=== PATIENT | female | born 1955 | race African-American/Black ===

== ENCOUNTER → 2016-08-31 | Outpatient (CLI) | payer MEDICARE, BC ==
--- NOTE | 2016-08-31 08:40 | XR ---
Left foot HISTORY: Pain, remote trauma 3 views of the left foot No comparisons There is degenerative change at the metatarsophalangeal joint of the first digit. Mild hallux valgus deformity. Bone mineralization is mildly reduced. Spurring also noted at the intertarsal joints. IMPRESSION: No fracture or dislocation. Degenerative changes.
== END | disposition home or self-care (01) ==
LOC: RADXRMAIN 08:08
PROVIDERS: ATTEND Family Medicine
DX: S99.922A Unspecified injury of left foot, initial encounter (principal); M25.872 Other specified joint disorders, left ankle and foot

== ENCOUNTER → 2017-08-07 | Outpatient (CLI) | payer MEDICARE, BC ==
--- NOTE | 2017-08-07 19:55 | CT ---
EXAMINATION TYPE: CT cervical spine wo con DATE OF EXAM: 08/07/2017 COMPARISON: NONE HISTORY: Neck, shoulder and bilateral arm pain for [address] DLP: 312.2 mGycm Automated exposure control for dose reduction was used. TECHNIQUE: CT scan of the cervical spine is obtained without contrast, axial images are obtained, sa gittal and coronal reformatted images are also reviewed. FINDINGS: There is plate with screws fusing anteriorly the cervical spine from C3 to C7. Vertebra hav e normal alignment. The facet joints appear intact. There is no evidence for fracture. There is some degree of metal artifact from the fusion surgery. I see no evidence of any significant spinal stenosi s. There is a mild relative spinal stenosis at C3-4 of 7 mm. I see no bony destructive process. The s kull base is intact. IMPRESSION: Multilevel fusion surgery. No sign of instability. No fracture. Mild relative spinal sten osis at C3-4.
== END | disposition home or self-care (01) ==
LOC: RADCTMAIN 18:59
PROVIDERS: ATTEND Family Medicine
DX: M48.02 Spinal stenosis, cervical region (principal); G89.29 Other chronic pain; Z98.1 Arthrodesis status
CPT/HCPCS: 72125

== ENCOUNTER → 2019-02-04 | Outpatient (CLI) | payer MEDICARE, BC ==
--- NOTE | 2019-02-04 14:44 | CT ---
EXAMINATION TYPE: CT chest wo con DATE OF EXAM: 02/04/2019 COMPARISON: 09/03/2014 HISTORY: 63-year-old female Chest pain x couple weeks. TECHNIQUE: Contiguous axial scanning of the chest without IV contrast. Coronal and sagittal reconstru ctions performed. CT DLP: 132 mGycm Automated exposure control for dose reduction was used. FINDINGS: Heart is normal size without pericardial effusion. Aorta normal caliber with bovine configuration. No thoracic lymphadenopathy by CT size criteria. There is moderate centrilobular emphysema with strandy atelectasis or scarring at the left base and m ild bilateral lower lobe bronchiectasis. No consolidation or pleural effusion. Irregular medial left basilar density measures 1.1 cm. On coronal series, this has a more bandlike ap pearance suggesting atelectasis rather than a suspicious nodule. Follow-up is recommended as this is new. Visualized upper abdomen shows post surgical change at the GE junction with small to moderate size hi atal hernia. Bones: No osseous destructive process. Partially visualized ACDF hardware. IMPRESSION: 1. COPD WITH MODERATE EMPHYSEMA. 2. MILD BIBASILAR BRONCHIECTASIS. 3. THIS NEW STRANDY LEFT BASILAR ATELECTASIS OR SCARRING COMPARED TO 2014. THERE IS A 1.1 CM FOCAL IRREGULAR DENSITY AT THE MEDIAL LEFT BASE. EQUIVOCAL BETWEEN ADDITIONAL AREA OF ATELECTASIS OR SUSPI CIOUS PULMONARY NODULE. THREE-MONTH FOLLOW-UP CT RECOMMENDED TO REASSESS. 4. SMALL TO MODERATE SIZED HIATAL HERNIA WITH SOME POST SURGICAL CHANGE AT THE GE JUNCTION. CORRELATE TO THE SURGERY THAT WAS PERFORMED.
== END | disposition home or self-care (01) ==
LOC: RADCTMAIN 13:13
PROVIDERS: ATTEND Internal Medicine Pulmonary Disease
DX: J47.9 Bronchiectasis, uncomplicated (principal); J43.9 Emphysema, unspecified; K44.9 Diaphragmatic hernia without obstruction or gangrene; K21.9 Gastro-esophageal reflux disease without esophagitis; J45.40 Moderate persistent asthma, uncomplicated; G89.4 Chronic pain syndrome; Z98.890 Other specified postprocedural states
CPT/HCPCS: 71250

== ENCOUNTER → 2019-07-31 | Outpatient (CLI) | payer MEDICARE, BC ==
--- NOTE | 2019-08-03 11:14 | MM ---
Reason for exam: screening (asymptomatic). Last mammogram was performed 2 years and 2 months ago. History: Patient is postmenopausal and is nulliparous. Benign excisional biopsy of the left breast, 2002. Physical Findings: A clinical breast exam by your physician is recommended on an annual basis and results should be correlated with mammographic findings. MG 3D Screening Mammo W/Cad Bilateral CC and MLO view(s) were taken. Prior study comparison: June 06, 2017, mammogram. April 16, 2016, mammogram. The breast tissue is heterogeneously dense. This may lower the sensitivity of mammography. Finding: There are typically benign round, regional calcifications in the posterior position of both breasts. Asymmetric breast tissue left central position, stable. There is no discrete abnormality. ASSESSMENT: Benign, BI-RAD 2 RECOMMENDATION: Routine screening mammogram of both breasts in 1 year.
== END | disposition home or self-care (01) ==
LOC: RADMAMWWP 13:16
PROVIDERS: ATTEND Obstetrics & Gynecology
DX: Z12.31 Encounter for screening mammogram for malignant neoplasm of breast (principal)
CPT/HCPCS: 77063; 77067

== ENCOUNTER → 2020-05-16 | Outpatient (CLI) | payer BC, MEDICARE ==
[2020-05-16 13:27] VITALS: BP 122/85; PULSE 87; RESP 16; TEMP 98.1
--- NOTE | 2020-05-20 11:01 | P.PAINCN ---
History of Present Illness - Reason for Consult Consult date: 05/16/20 - History of Present Illness This is an initial consultation visit for this 64 years old female with a chronic history of severe neck pain, started more than 15 years ago, she had cervical fusion surgery, she continued to have severe neck pain with radiation to the upper extremity associated with numbness and tingling sensation, the pain intensity interfere with the quality of life and prevented her from doing activities of daily livings, she denies any motor or sensory deficit she denies any fever or night sweats, she had no change in the bowel movements or urination Past Medical History Past Medical History: Asthma, COPD, Fibromyalgia, GERD/Reflux, Osteoarthritis (OA) History of Any Multi-Drug Resistant Organisms: None Reported Past Surgical History: Hysterectomy Additional Past Surgical History / Comment(s): fusion -neck 2006,EGD,bunnionectomy Past Anesthesia/Blood Transfusion Reactions: No Reported Reaction Past Psychological History: Depression Smoking Status: Former smoker Past Alcohol Use History: Rare Additional Past Alcohol Use History / Comment(s): quit smoking Jul 2019 Past Drug Use History: Marijuana Additional Drug Use History / Comment(s): MEDICAL USE-uses daily - Past Family History Mother Family Medical History: Cancer Medications and Allergies Home Medications Medication Instructions Recorded Confirmed Type FLUoxetine HCL [PROzac] 40 mg PO DAILY 09/09/14 05/13/20 History Lansoprazole 30 mg PO BID 09/09/14 05/13/20 History Albuterol Sulfate [Proair Hfa] 1 - 2 puff INHALATION Q6HR PRN 09/25/14 05/13/20 History Beclomethasone Dipropionate [Qvar 2 puff INHALATION BID PRN 09/25/14 05/13/20 History 80 mcg/puff] Hydrocodone/Acetaminophen [Badin 1 each PO Q6HR PRN 10/26/14 05/13/20 History 7.5-325] tiZANidine HCL [Zanaflex] 4 mg PO Q8HR 05/16/20 05/16/20 History Allergies Allergy/AdvReac Type Severity Reaction Status Date / Time meperidine HCl [From Demerol] AdvReac Vomiting Verified 05/16/20 13:15 Physical Exam Physical Examinations : -Constitutiona : Cooperative , not in acute distress . -HEENT : nech : supple , no Lymphadenopathy , normal thyroid size . : eyes : no ptosis , no icterus, no photophobia . : ENT : normal of hearing , normal oropharynx , no Thrush . - Respiratory : Chest clear to auscultations Bilaterally , no wheezing , no Rhonchi . - Cardiovascula : regular rate and rhythem , S1 , S2 , no S3 , no S4. - Gastrointestina : abdomen soft no tenderness , bowel sounds , no organomegally . - Genitourinary : Defferred . - neurologic : Cranial nerve II to XII intact , no focal neurological deffecit . -psychatric : alert , oriented X 3 , appropriate affect , intact judgment and insight . -Lymphatic : no Lymphadenopathy . - musculoskeltal : Cervical Spine motor stregnth in the deltoid and biceps, normal right side , normal Left side motor stregnth biceps and the wrist extensors normal right side ,normal left side . motor stregnth in the triceps muscle . normal Right side , normal Left side deep tendon reflexes normal at the biceps , normal at Brachioradialis , normal at triceps. cervical facet loading test= Positive Bilaterally Spurling test= positive bilaterally. Neck distraction test= positive bilaterally. Marquis sign= positive bilaterally. Multiple trigger point identified in the cervical paraspinal muscles on the shoulder blade area Lumber spine moter stegnth lower extremities ,thigh and legs 5/5 Right side , 5/5 Left side Results Comments: Computed tomography scan of the cervical spine multilevel cervical fusion surgery and cervical canal stenosis at C3 4 levels Assessment and Plan Plan: Assessment and plan=1-cervical radiculopathy. 2-myofascial pain syndrome and cervical paraspinal muscles and shoulder blade area bilaterally 3-failed back surgery syndrome cervical area. Patient could benefit from cervical epidural steroid injection at C7-T1, and she could benefit from trigger point injection in the cervical paraspinal muscles and shoulder blade area, also patient could benefit from physical therapy prescription for that given and also she could benefit from a muscle relaxant Zanaflex 4 mg every 8 hours when necessary Time with Patient: Greater than 30 PQRS Measure Charge Sheet PQRS Narrative: Smoking Status Former smoker Blood Pressure 122/85 Pain Intensity [Bilateral 7 Posterior Neck] Pain Intensity [None] 0 Scale Used Numeric (1 - 10) Hx Alcohol Use (MH) Yes Home Medications: Ambulatory Orders FLUoxetine HCL [PROzac] 40 mg PO DAILY 09/09/14 Lansoprazole 30 mg PO BID 09/09/14 Albuterol Sulfate [Proair Hfa] 1 - 2 puff INHALATION Q6HR PRN 09/25/14 Beclomethasone Dipropionate [Qvar 80 mcg/puff] 2 puff INHALATION BID PRN 09/25/14 Hydrocodone/Acetaminophen [Badin 7.5-325] 1 each PO Q6HR PRN 10/26/14 tiZANidine HCL [Zanaflex] 4 mg PO Q8HR 05/16/20
== END | disposition home or self-care (01) ==
LOC: PNWHC3 12:35
PROVIDERS: ATTEND Specialist
DX: M96.1 Postlaminectomy syndrome, not elsewhere classified (principal); M54.12 Radiculopathy, cervical region; M79.18 Myalgia, other site; K21.9 Gastro-esophageal reflux disease without esophagitis; Z87.891 Personal history of nicotine dependence; Z79.899 Other long term (current) drug therapy
CPT/HCPCS: 99211

== ENCOUNTER → 2020-06-09 | Day surgery (SDC) | payer MEDICARE ==
[2020-06-07 14:37] VITALS: BMI 23.8
[~2020-06-09] MED LIST: DEXAMETHASONE SOD PHOSPHATE 10 MG/ML 1 ML VIAL ONE; IOPAMIDOL M200 10 ML VIAL ONE; IV FLUID CONTINUATION 750 ML IV ONE; LACTATED RINGERS 1,000 ML IV ONE; LIDOCAINE 1% (10MG/ML) FOR IV START INTRADERMA ONE; MIDAZOLAM 2 MG/2 ML VIAL ONE; fentaNYL (PF) 50 MCG/ML 2 ML AMP ONE
[2020-06-09 12:51] VITALS: TEMP 98.4
--- NOTE | 2020-06-09 13:29 | P.PCN ---
Date of Procedure: 06/09/20 Description of Procedure: Diagnosis: Cervical radiculopathy Cervical degenerative disc disease POSTOPERATIVE DIAGNOSIS: Diagnoses: Cervical radiculopathy Cervical degenerative disc disease PROCEDURE Cervical Epidural steroid injection under fluoroscopic guidance at the T1-T2 interspace using right paramedian approach. Cervical epidurogram ANESTHESIA: Local with 1% lidocaine 3 ml and IV sedation with Versed and fentanyl, sedation time 14 minutes Fluoroscopy was used for the procedure and images were saved in the radiology portion of the chart. EBL: Minimal PROCEDURE INDICATION: The patient presents with cervical radicular symptoms unresponsive to conservative treatment. This is the first cervical epidural steroid injection. PROCEDURE DESCRIPTION / TECHNIQUE: The patient was seen and identified in the preoperative area. Risks, benefits, complications including but not limited to infections ,bleeding ,allergic reaction to the medications ,nerve damage and incomplete pain relief, and alternatives were discussed with the patient. The patient agreed to proceed with the procedure and signed the consent. IV was started, and vital signs were stable. Patient was taken to the OR and time out was completed. The patient was placed in the prone position on procedure table and a pillow was placed under the chest area. The cervical area was prepped and draped in the usual sterile fashion. Conscious sedation was used during the procedure to decrease patients anxiety. Vital signs was monitored during the entire procedure. Using anterior-posterior fluoroscopy, the C7-T1 interlaminar space was identified and the skin over this site was marked and then infiltrated with 1% lidocaine subcutaneously. Subsequently, a 20-gauge Tuohy epidural needle was inserted and advanced toward the epidural space using the loss of resistance technique and guided by AP and 50 oblique fluoroscopy. The correct needle position in the epidural space was verified. After negative aspiration for blood and CSF and in the absence of paresthesias, Isovue 200 2 mL's was injected under live fluoroscopy with good epidural spread. After negative aspiration, a 3 ml mixture containing 10 mg of dexamethasone, 2 mL of preservative free normal saline was injected. Needle was withdrawn intact, skin was cleansed, and bandages were applied. COMPLICATIONS: None. She has a cervical fusion from C3 to C7 so decision was made to do a T1-T2 approach. There was adequate spread upwards towards the lo wer, middle, and upper cervical levels. DISPOSITION / PLANS: The patient was placed in a supine position and transferred to the recovery area in a stable condition for observation. There was no evide nce of lower extremity motor or sensory deficit after the procedure. Patient was discharged from the recovery room after meeting discharge criteria. Home discharge instructions were given to the patient by the staff. The patient will be scheduled a [follow up/repeat procedure] in the clinic in 2-4 weeks.
[2020-06-09 13:34] VITALS: RESP 16
--- NOTE | 2020-06-09 13:37 | FL ---
Fluoroscopy HISTORY: Pain 5 seconds fluoroscopy time supplied to the referring clinician. 2 intraoperative C-arm images docume nt the procedure. See dictated report from anesthesia.
[2020-06-09 13:48] VITALS: BP 118/77; PULSE 85
--- NOTE | 2020-06-15 13:38 | CDI ---
Date: 06.15.2020 CDS/Jig Operator Name: Adelaide Griffiths Phone: If any questions, call Milena Geller [employer] [facility] at [phone] Patient Name: Serenity Mccollum Admit Date 06.09.20 Discharge Date: 06.09.20 ATTENTION: The [facility] Coding Staff appreciate your assistance in clarifying documentation. Please respond to the clarification below the line at the bottom and electronically sign. The [facility] Coding staff will review the response and follow-up if needed. Please note: Queries are made part of the Legal Health Record. If you have any questions, please contact the L[employer] [facility]. Dear Dr. Panchal In order to code to the greatest specificity and for the greatest reimbursement I need the following information: On the pain procedure record procedure listed Paraspinal trigger point injection. There is no documentation for this procedure (only cervical epidural steroid injection documented). Please document the trigger point procedure. Thank you for your kind consideration. MTDD
== END ==
LOC: ORPAIN 12:22
PROVIDERS: ATTEND Anesthesiology
DX: M50.10 Cervical disc disorder with radiculopathy, unspecified cervical region (principal); Z88.5 Allergy status to narcotic agent; Z90.710 Acquired absence of both cervix and uterus; Z98.1 Arthrodesis status
CPT/HCPCS: 20553; 62321; J2250; J1100; J3010; Q9966; 99152

== ENCOUNTER 2020-06-28 11:38 | Day surgery (SDC) | payer MEDICARE ==
[2020-06-27 12:29] VITALS: BMI 22.8
[2020-06-28 11:55] VITALS: TEMP 97.6
[2020-06-28] MEDS ORDERED: LACTATED RINGERS 1,000 ML IV SCH (11:55)
[2020-06-28] MEDS ORDERED: MIDAZOLAM 2 MG/2 ML VIAL ONE (12:40)
[2020-06-28] MEDS ORDERED: IOPAMIDOL M200 10 ML VIAL ONE (12:40)
[2020-06-28] MEDS ORDERED: DEXAMETHASONE SOD PHOSPHATE 10 MG/ML 1 ML VIAL ONE (12:40)
[2020-06-28] MEDS ORDERED: fentaNYL (PF) 50 MCG/ML 2 ML AMP ONE (12:40)
[2020-06-28] MEDS ORDERED: ROPIVACAINE 5MG/ML 20ML VIAL ONE (12:40)
--- NOTE | 2020-06-28 12:53 | P.PCN ---
Date of Procedure: 06/28/20 Description of Procedure: PROCEDURE 1. Cervical epidural steroid injection under fluoroscopic guidance, C7-T1 2. Cervical epidurogram. PREOPERATIVE DIAGNOSIS: Cervical radiculopathy POSTOPERATIVE DIAGNOSIS: Cervical radiculopathy Imaging: Fluoroscopy was used, images where saved to the medical record ANESTHESIA: Local anesthesia with 1% lidocaine and (IV conscious sedation ) PROCEDURE DESCRIPTION / TECHNIQUE: The patient was seen and identified in the preoperative area. Risks, benefits, and alternatives were discused with the patient and the patient has consented to the procedure. Risks of the procedure include potential for bleeding, infection, nerve damage, and incomplete pain relief were discussed with the patient. All questions were answered for the patient Patient was taken to the OR and time out was completed. The patient was placed in the prone position on the procedure table. A pillow was placed under the patients chest to increase the cervical interlaminar space. The cervical area was prepped and draped in the usual sterile fashion. Vital signs were closely monitored during the procedure. Using anterior-posterior fluoroscopy, the C7-T1 interlaminar space was identified and the skin over this site was marked and then infiltrated with 1% lidocaine subcutaneously. Subsequently, a 20-gauge 3-1/2-inch Tuohy epidural needle was inserted and advanced toward the epidural space by means of the [id number] technique and guided by AP and lateral fluoroscopy. The correct needle position in the epidural space was verified with the injection of 1 mL of the water soluble contrast dye Isovue-180 and observing an excellent epidurogram with the epidural spread of the dye, after negative aspiration for blood and CSF and in the absence of paresthesias. Again after negative aspiration, a mixture containing 10 mg Dexamethasone and 2 ml of preservative- free normal saline injected and a washout of epidurogram was seen. Needle was withdrawn intact, skin was cleansed, and bandages were applied. Complications: none. Disposition: patient was placed in supine position and transferred to the recovery room area in stable condition and there was no evidence of upper or lower extremity motor or sensory deficit after the procedure patient was discharged from recovery room after discharge criteria met and home discharge instructions was given by the staff and patient will follow with the pain as directed.
--- NOTE | 2020-06-28 12:54 | P.PCN ---
Date of Procedure: 06/28/20 Description of Procedure: Preoperative Diagnosis: myofascial pain syndrome of cervical or spinal muscles Postoperative diagnosis: Same Anesthesia: Local Surgeon: Zabrina Yost MD Indications for procedure: This is a 64-year-old patient with myofascial pain and palpable trigger points in cervical paraspinal muscles. The patient consents for an injection after an explanation of risks including but not limited to bleeding and infection, benefits, and alternatives and the patient has signed a consent form indicating understanding of all of them. Description of procedure: After informed consent was obtained the patient's painful area was sterilely prepped in the usual fashion with ChloraPrep. Cervical paraspinal, trapezius, rhomboids trigger points were identified via palpation of the cervical paraspina l muscles and marked sterilely. Each trigger point was injected with a 27-gauge one and a half inch needle. At that point a solution consisting of 10ml of 0.5% ropivacaine was distributed evenly over the trigger points. The patient's vital signs were stable afterwards and the procedure was tolerated well. Patient was discharged home with follow-up instructions.
[2020-06-28] MEDS ORDERED: IV FLUID CONTINUATION 800 ML IV ONE (13:00)
[2020-06-28] MEDS ORDERED: LACTATED RINGERS 1,000 ML IV ONE (13:00)
[2020-06-28 13:03] VITALS: BP 115/78; RESP 18
--- NOTE | 2020-06-28 13:03 | FL ---
EXAMINATION TYPE: FL guided pain mgmt statistic DATE OF EXAM: 06/28/2020 HISTORY: Fluoroscopy time 4 seconds of fluoroscopy provided. IMPRESSION: 1. Fluoroscopy time.
[2020-06-28 13:18] VITALS: PULSE 67
== END 2020-06-28 13:31 | disposition home or self-care (01) ==
LOC: ORPAIN 11:38
PROVIDERS: ATTEND Hospitalist
DX: M54.12 Radiculopathy, cervical region (principal); M79.18 Myalgia, other site; Z88.5 Allergy status to narcotic agent; Z90.710 Acquired absence of both cervix and uterus
CPT/HCPCS: 20553; 62321

== ENCOUNTER → 2020-07-27 | Outpatient (CLI) | payer MEDICARE, BC ==
[2020-07-27 10:56] VITALS: BP 126/91; PULSE 89; RESP 16; TEMP 98.1
--- NOTE | 2020-07-27 21:21 | P.PN ---
Subjective Progress Note Date: 07/27/20 Disallow visit for this 64 years old female with a chronic history of severe low back pain, she had cervical fusion surgery and she continued to have severe neck pain with radiation to the upper extremity associated with numbness and tingling sensation, pain is constant and increases with any activity and aggravated with any neck movement, previously we have done cervical epidural steroid injection and trigger point injection she continued to have severe neck pain, the pain interfere with the quality of life and preventing her from doing activities of daily livings, she continued to using [place] 7.5/325 every 6 hours when necessary and Zanaflex 4 mg every 8 hours when necessary, she denies any side effects of the medication she denies any excessive drowsiness and sleepiness Objective - Vital Signs Vital signs: Vital Signs Temp 98.1 F 07/27/20 10:54 Pulse 89 07/27/20 10:54 Resp 16 07/27/20 10:54 BP 126/91 07/27/20 10:54 Pulse Ox 99 07/27/20 10:54 - Exam Physical Examinations : -Constitutiona : Cooperative , not in acute distress . -HEENT : nech : supple , no Lymphadenopathy , normal thyroid size . : eyes : no ptosis , no icterus, no photophobia . - neurologic : Cranial nerve II to XII intact , no focal neurological deffecit . -psychatric : alert , oriented X 3 , appropriate affect , intact judgment and insight . -Lymphatic : no Lymphadenopathy . - musculoskeltal : Cervical Spine motor stregnth in the deltoid and biceps, normal right side , normal Left side motor stregnth biceps and the wrist extensors normal right side ,normal left side . motor stregnth in the triceps muscle . normal Right side , normal Left side deep tendon reflexes normal at the biceps , normal at Brachioradialis , normal at triceps. cervical facet loading test: Positive Bilaterally Spurling test= positive Right , positive left. Neck distraction test= positive Right , positive left. Marquis sign= positive right, positive left . Lumber spine moter stegnth lower extremities ,thigh and legs 5/5 Right side , 5/5 Left side Assessment and Plan Plan: Assessment and plan=1-cervical radiculopathy 2-failed back surgery syndrome cervical area. 3-myofascial pain syndrome and cervical area. 4-cervical spondylosis with cervical facet arthropathy without myelopathy Patient continued to have severe neck pain after cervical epidural steroid injection and after trigger point injections cervical area He will be good candidate for diagnostic medial branch block cervical area at C2 ,C3 ,C4 bilaterally and possible RF - PQRS measures = - Patient's medications are documented in the chart. -Tobacco use is negative and counseling.Given. -Patient's has received pneumococcal vaccine. -Advanced care planning discussed, patient not eligible. -Opiate contract not signed. -Pain positive and follow-up visit/procedure is scheduled. -Patient's blood pressure measured [126/91 ] , and documented in the record ,and patient will follow up with the primary care. -Patient's weight was measured and body mass index within the normal limits and counseling was done. and patient instructed to follow-up with the primary care physician. -Patient was not identified as an unhealthy alcohol user Time with Patient: Less than 30
== END | disposition home or self-care (01) ==
LOC: PNWHC3 10:28
PROVIDERS: ATTEND Specialist
DX: M47.22 Other spondylosis with radiculopathy, cervical region (principal); M96.1 Postlaminectomy syndrome, not elsewhere classified; M79.18 Myalgia, other site
CPT/HCPCS: 99211

== ENCOUNTER → 2020-08-12 | Day surgery (SDC) | payer MEDICARE, BC ==
[2020-08-09 16:03] VITALS: BMI 23.8
[~2020-08-12] MED LIST changes: -DEXAMETHASONE SOD PHOSPHATE 10 MG/ML 1 ML VIAL ONE; +HYDROmorphone 0.5 MG/0.5 ML SYRINGE IVP PRN; -IOPAMIDOL M200 10 ML VIAL ONE; +IV FLUID CONTINUATION 1,000 ML IV ONE; -IV FLUID CONTINUATION 750 ML IV ONE; -LACTATED RINGERS 1,000 ML IV ONE; +LACTATED RINGERS 1,000 ML IV SCH; +MIDAZOLAM 2 MG/2 ML VIAL IV PRN; +ROPIVACAINE 5MG/ML 20ML VIAL ONE; +methylPREDNISolone ACETATE 40 MG/ML 1 ML VIAL ONE
[2020-08-12 13:15] VITALS: RESP 16; TEMP 97.9
--- NOTE | 2020-08-12 13:52 | P.PCN ---
Date of Procedure: 08/12/20 Procedure(s) Performed: PREOPERATIVE DIAGNOSIS: Cervical Spondylosis with Facet Arthropathy.without myelopathy POSTOPERATIVE DIAGNOSIS: Cervical Spondylosis Facet Arthropathy. Without myelopathy PROCEDURES: Diagnostic bilateral C2 , C3, C4 medial branch blocks, with fluoroscopic guidance (fluoroscopy images available in radiology department ) ( to target the facet joint at the bilateral at C2-3 , C3-4 ) # 1st ANESTHESIA: Monitored anesthesia care as per anesthesia department. EBL: Minimal PROCEDURE INDICATION: The patient with neck pain secondary to cervical arthropathy unresponsive to more conservative treatments. PROCEDURE DESCRIPTION / TECHNIQUE: The patient was seen and identified in the preoperative area. Risks, benefits, complications, and alternatives were discussed with the patient, the patient agreed to proceed with the procedure and signed the consent. IV was started. Vital signs remained stable throughout the procedure. Patient was taken to the OR and time out was completed. The patient was placed in the prone position on the procedure table. A pillow was placed under the patients chest to increase the cervical interlaminar space. The cervical area was prepped and draped in the usual sterile fashion. Critical pause was taken. Vital signs were closely monitored during the procedure. Conscious sedation was used during the procedure to decrease patients anxiety. Using cross-table lateral fluoroscopy, the centroid of the trapezoid of right C2 , C3, C4 was identified, marked, and localized with 1% lidocaine 1 ml at each level for skin and Sub Q infiltrations . Subsequently, a 22 G 3 spinal ne edle was advanced guided by fluoroscopy to the centroid of the trapezoid of Right C2 ,C3, C4 , . Kirwin tip position was confirmed at the centroid of the trapezoids of Right C2 ,C3 , C4 , with anteroposterior fluoroscopy. Subsequently, 2 ml of preservative-free Ropivacaine 0.5% mixed with Depo- Medrol 20 mg and half ml of the mixture was injected after negative aspiration for blood and CSF. Kirwin was then removed intact the same procedure was repeated at the left C2 , C3 , C4 levels. COMPLICATIONS: No acute complications.: DISPOSITION / PLANS: The patient was placed in a supine position and transferred to the recovery area in a stable condition for observation and was discharged from the recovery room after meeting discharge criteria. Home discharge instructions given to the patient by the staff. The patient was reexamined prior to discharge. The patient will schedule a follow up in the clinic in 2-4 weeks.
[2020-08-12 14:16] VITALS: BP 118/79; PULSE 86
--- NOTE | 2020-08-12 14:34 | FL ---
Fluoroscopy HISTORY: Pain 13 seconds fluoroscopy time supplied to the referring clinician. 2 intraoperative C-arm images docum ent the procedure. See dictated report from anesthesia.
== END ==
LOC: ORPAIN 12:30
PROVIDERS: ATTEND Specialist
DX: M47.812 Spondylosis without myelopathy or radiculopathy, cervical region (principal); J44.9 Chronic obstructive pulmonary disease, unspecified; M79.7 Fibromyalgia; K21.9 Gastro-esophageal reflux disease without esophagitis; Z78.0 Asymptomatic menopausal state; Z88.5 Allergy status to narcotic agent; Z79.899 Other long term (current) drug therapy; Z79.891 Long term (current) use of opiate analgesic; Z79.51 Long term (current) use of inhaled steroids
CPT/HCPCS: 64490; 64491; J2250; J1030; J3010; J2795

== ENCOUNTER 2020-09-02 11:53 | Day surgery (SDC) | payer MEDICARE, BC ==
[2020-08-30 10:43] VITALS: BMI 23.8
[~2020-09-02 11:53] MED LIST changes: -HYDROmorphone 0.5 MG/0.5 ML SYRINGE IVP PRN; -IV FLUID CONTINUATION 1,000 ML IV ONE; -LIDOCAINE 1% (10MG/ML) FOR IV START INTRADERMA ONE; -MIDAZOLAM 2 MG/2 ML VIAL IV PRN; -MIDAZOLAM 2 MG/2 ML VIAL ONE; -ROPIVACAINE 5MG/ML 20ML VIAL ONE; -fentaNYL (PF) 50 MCG/ML 2 ML AMP ONE; -methylPREDNISolone ACETATE 40 MG/ML 1 ML VIAL ONE
--- NOTE | 2020-09-02 12:23 | P.PCN ---
Date of Procedure: 09/02/20 Description of Procedure: Procedure: Cervical Medial Branch Block at C2 3, C3 4 Indications: Neck Pain Imaging: Fluoroscopy was used, images where saved to the medical record Anesthesia: Local with IV sedation Description of procedure: The patient was seen and examined in the PO. Procedure risks and benefits were fully reviewed with patient. The patient understands this is a diagnostic as well as a therapeutic procedure and that the goal of the procedure is to inject medication on to the medial branch or small nerves that go into the facet joints. In this way, we can hopefully identify which of these joints, if any, may be contributing to their pain. Informed consent for the procedure was obtained. The patient was taken into the office fluoroscopy procedure room and placed supine on the table. Vital signs were closely monitored during the procedure. The skin over the area was prepped with chlorhexidine and draped in usual sterile manner. Sterile technique was observed throughout procedure. Under fluoroscopic guidance, the target injection areas of the C XXX medial branch nerve locations were visualized in lateral views. Using biplanar fluoroscopy, a 25 gauge 1.5 inch needle was inserted into proper position where the tip of the needle was located at the midpoint of the quadrangle at each level. After negative aspiration for blood and CSF, 0.5cc of 0.5 % Ropivacaine with a total of 10 mg dexamethasone was injected into each of the targeted areas. The needles were withdrawn intact. No complications were noted during the procedure. The patient tolerated procedure well. The patient was placed in supine position and transferred to the recovery area for observation and remained stable until discharged home. Home discharge instructions given to the patient by the staff. The patient was reexamined prior to discharge. Follow up/plan: The patient will schedule a follow up in the clinic to discuss results and potential RFA.
[2020-09-02] MEDS ORDERED: LIDOCAINE 1% (10MG/ML) FOR IV START INTRADERMA ONE (12:28)
[2020-09-02 12:30] VITALS: RESP 16; TEMP 96.9
[2020-09-02] MEDS ORDERED: DEXAMETHASONE SOD PHOSPHATE 10 MG/ML 1 ML VIAL ONE (12:30)
[2020-09-02] MEDS ORDERED: MIDAZOLAM 2 MG/2 ML VIAL ONE (12:30)
[2020-09-02] MEDS ORDERED: ROPIVACAINE 5MG/ML 20ML VIAL ONE (12:30)
[2020-09-02] MEDS ORDERED: IV FLUID CONTINUATION 1,000 ML IV ONE (12:46)
[2020-09-02 13:11] VITALS: BP 126/75; PULSE 75
--- NOTE | 2020-09-02 13:59 | FL ---
Fluoroscopy HISTORY: Pain 5 seconds fluoroscopy time supplied to the referring clinician. 4 intraoperative C-arm images docume nt the procedure. See dictated report from anesthesia.
--- NOTE | 2020-09-09 11:54 | CDI ---
Outpatient Documentation Clarification Form Date: 09/09/20 CDS/Other Sports Coach Or Instructor Name: Albertina Loo Phone: If any questions, call Milena Geller Fast Food Server at [phone] Patient Name: Serenity Mccollum Admit Date: 09/02/20 Discharge Date: 09/02/20 ATTENTION: The [facility] Coding Staff appreciate your assistance in clarifying documentation. Please respond to the clarification below the line at the bottom and electronically sign. The [facility] Coding staff will review the response and follow-up if needed. Please note: Queries are made part of the Legal Health Record. If you have any questions, please contact the Fast Food Server. Dear Dr. Yost, Please provide clarification for the laterality of the procedure performed. There is no indication on the procedure note as to the laterality of the procedure. Please clarify. Thank you for your kind consideration .bilateral procedure C2/3, C3/4 MTDD
== END 2020-09-02 13:31 | disposition home or self-care (01) ==
LOC: ORPAIN 11:53
PROVIDERS: ATTEND Hospitalist
DX: M54.2 Cervicalgia (principal); Z88.5 Allergy status to narcotic agent; J44.9 Chronic obstructive pulmonary disease, unspecified; M19.90 Unspecified osteoarthritis, unspecified site; E07.9 Disorder of thyroid, unspecified; M79.7 Fibromyalgia; Z79.891 Long term (current) use of opiate analgesic; Z79.51 Long term (current) use of inhaled steroids; Z79.899 Other long term (current) drug therapy
CPT/HCPCS: 64490; 64491; J2250; J1100; J2795

== ENCOUNTER → 2020-09-19 | Outpatient (CLI) | payer MEDICARE, BC ==
[2020-09-19 12:28] VITALS: BP 123/81; PULSE 95; RESP 18; TEMP 98.6
--- NOTE | 2020-09-19 12:55 | P.PAINPG ---
Subjective Progress Note Date: 09/19/20 Principal diagnosis: Neck pain Ms. Mccollum is a 64-year-old pleasant female came to the [facility] pain management clinic after second C2-C3, C3-C4 medial branch block procedure. Vision had more than 70% pain relief for 2 weeks duration with the previous procedure. Patient came here for radiofrequency ablation for longer pain relief. Patient complaining her neck pain is aching, throbbing type. Sometimes she is experiencing headaches with the neck pain. She rated her pain is 6 out of 10 in severity. Activities making her pain severe. Resting, and marijuana, and intervention procedures helping her in relieving her pain. She denied any red flag symptoms related to pain at this time. 13 point review of systems negative except as mentioned in the history of present illness. Objective - Vital Signs Vital signs: Vital Signs Temp 98.6 F 09/19/20 12:22 Pulse 95 09/19/20 12:22 Resp 18 09/19/20 12:22 BP 123/81 09/19/20 12:22 Pulse Ox 98 09/19/20 12:22 - Exam General: well-developed, well-nourished, no acute distress. HEENT: Normocephalic, atraumatic. Neck: supple, trachea midline CVS: Regular rate and rhythm Pulmonary : Not in labored breathing. Neurologic: No noticeable focal neurological deficits. Psychiatric: Appropriate mood and affect. Musculoskeletal: Upper extremity : Normal strength and range of motion, and sensation grossly intact. Lower extremity: Normal strength and range of motion. Sensation grossly intact Cervical paravertebral tenderness: Positive. Cervical facet load test: Positive. cervical Spurling test: Not done Multiple trigger points positive over cervical, and upper thoracic area. PQRS Measure Charge Sheet PQRS Narrative: Smoking Status Former smoker Blood Pressure 123/81 Pain Intensity [Neck] 3 Scale Used Numeric (1 - 10) Hx Alcohol Use (MH) Yes Home Medications: Ambulatory Orders Lansoprazole 30 mg PO BID 09/09/14 Albuterol Sulfate [Proair Hfa] 1 - 2 puff INHALATION Q6HR PRN 09/25/14 Beclomethasone Dipropionate [Qvar 80 mcg/puff] 2 puff INHALATION BID PRN 09/25/14 Hydrocodone/Acetaminophen [Baskin 7.5-325] 0.5 each PO DIRECTED PRN 10/26/14 tiZANidine HCL [Zanaflex] 4 mg PO Q8HR 05/16/20 Methimazole [Tapazole] 2.5 mg PO DAILY 08/09/20 Citalopram Hydrobromide [Citalopram HBr] 20 mg PO DAILY 09/15/20 Controlled Substance Measures - Controlled Substance Measures Is patient prescribed a controlled substance at discharge?: No
== END ==
LOC: PNWHC3 12:10
DX: M54.2 Cervicalgia (principal)
CPT/HCPCS: 99211

== ENCOUNTER 2020-10-07 12:22 | Day surgery (SDC) | payer MEDICARE, BC ==
[2020-10-04 10:59] VITALS: BMI 23.4
[2020-10-07 12:42] VITALS: RESP 16; TEMP 97.4
[2020-10-07] MEDS ORDERED: LIDOCAINE 1% (10MG/ML) FOR IV START INTRADERMA ONE (12:46)
[2020-10-07] MEDS ORDERED: LACTATED RINGERS 1,000 ML IV ONE (12:47)
[2020-10-07] MEDS ORDERED: fentaNYL (PF) 50 MCG/ML 2 ML AMP ONE (13:08)
[2020-10-07] MEDS ORDERED: MIDAZOLAM 2 MG/2 ML VIAL ONE (13:08)
[2020-10-07] MEDS ORDERED: IV FLUID CONTINUATION 1,000 ML IV ONE (13:41)
--- NOTE | 2020-10-07 13:49 | P.PCN ---
Date of Procedure: 10/07/20 Description of Procedure: PREOPERATIVE DIAGNOSIS: Cervical spondylosis POSTOPERATIVE DIAGNOSIS: Cervical spondylosis PROCEDURES: Left cervical Radiofrequency thermocoagulation, C2-3, C3-4 ANESTHESIA: Monitored anesthesia care provided by anesthesia department. EBL: Minimal PROCEDURE INDICATION: The patient with neck pain secondary to cervical arthropathy who had more than 50% relief of her pain with previous diagnostic cervical medial branch block. PROCEDURE DESCRIPTION / TECHNIQUE: The patient was seen and identified in the preoperative area. Risks, benefits, complications, and alternatives were discussed with the patient, the patient agreed to proceed with the procedure and signed the consent. IV was started. Vital signs remained stable throughout the procedure. Patient was taken to the OR and time out was completed. The patient was placed in the prone position on the procedure table. A pillow was placed under the patient's chest to increase the cervical interlaminar space. The cervical area was prepped and draped in the usual sterile fashion. Critical pause was taken. Vital signs were closely monitored during the procedure. Conscious sedation was used during the procedure to decrease patients anxiety. Using cross-table lateral fluoroscopy, the centroid of the trapezoid of C2, C3, C4 were identified, marked, and localized with 1% lidocaine. Subsequently, a 20 -el radiofrequency cannula with a 10-mm active tip was advanced guided by fluoroscopy to the centroid of the trapezoid of C2, C3, C4. Needle tip position was confirmed at the centroid of the trapezoids of C2, C3, C4 with anteroposterior fluoroscopy. Each site then underwent sensory testing at 50 Hz and 0 to 1 volt and motor testing at 2 Hz and 0 to 3 volt with local stimulation, but no radicular symptoms down the arm. Thereafter C2, C3, C4 sites underwent radiofrequency thermocoagulation at 80 degrees celsius for 60 seconds after injecting 1 ml of PF lidocaine 4%. After thermocoagulation, 1 ml of the block solution containing dexamethasone 10 mg and 5 mL of preservative-free lidocaine 1% at the C2, C3, C4 levels after negative aspiration of CSF and blood and with no paresthesias. Cannulas were retracted while injecting lidocaine 1% until the needle is out. Skin was cleansed and bandages were applied. COMPLICATIONS: No acute complications. COMMENTS: DISPOSITION / PLANS: The patient was placed in a supine position and transferred to the recovery area in a stable condition for observation and was discharged from the recovery room after meeting discharge criteria. Home discharge instructions given to the patient by the staff. The patient was reexamined prior to discharge. The patient will schedule a follow up in the clinic in 2-4 weeks
[2020-10-07 14:00] VITALS: BP 120/78; PULSE 85
--- NOTE | 2020-10-07 14:35 | FL ---
Fluoroscopy HISTORY: Pain 36 seconds fluoroscopy time supplied to the referring clinician. 4 intraoperative C-arm images docum ent the procedure. See dictated report from anesthesia.
== END 2020-10-07 14:17 | disposition home or self-care (01) ==
LOC: ORPAIN 12:22
PROVIDERS: ATTEND Anesthesiology
DX: M47.812 Spondylosis without myelopathy or radiculopathy, cervical region (principal); E03.9 Hypothyroidism, unspecified; J45.909 Unspecified asthma, uncomplicated; K21.9 Gastro-esophageal reflux disease without esophagitis; Z88.5 Allergy status to narcotic agent
CPT/HCPCS: 64633; 64634; J2250; J3010

== ENCOUNTER → 2020-10-26 | Outpatient (CLI) | payer MEDICARE, BC ==
--- NOTE | 2020-10-26 13:02 | P.PN ---
Subjective Progress Note Date: 10/26/20 This is follow up visit for this 64 years old female with a chronic history of severe low back pain, she is diagnosed with cervical spondylosis and cervical facet arthropathy, and failed back surgery syndrome cervical area, status post RFA of the left side medial branch cervical area at C2, C3, C4, her pain on the left side improved significantly she continued to have severe pain on the right side cervical area with pain in the upper part of the shoulder blade Physical Examinations : -Constitutiona : Cooperative , not in acute distress . -HEENT : nech : supple , no Lymphadenopathy , normal thyroid size . : eyes : no ptosis , no icterus, no photophobia . - neurologic : Cranial nerve II to XII intact , no focal neurological deffecit . -psychatric : alert , oriented X 3 , appropriate affect , intact judgment and insight . -Lymphatic : no Lymphadenopathy . - musculoskeltal : Cervical Spine motor stregnth in the deltoid and biceps, normal right side , normal Left side motor stregnth biceps and the wrist extensors normal right side ,normal left side . motor stregnth in the triceps muscle . normal Right side , normal Left side deep tendon reflexes normal at the biceps , normal at Brachioradialis , normal at triceps. cervical facet loading test: Positive Bilaterally Multiple trigger point identified in the right side cervical paraspinal muscles, right suprascapular area. Lumber spine moter stegnth lower extremities ,thigh and legs 5/5 Right side , 5/5 Left side Assessment and plan=1-cervical spondylosis with cervical facet arthropathy without myelopathy 2-failed back surgery syndrome cervical area. 3-myofascial pain syndrome and cervical area. Patient had good pain relief after RFA of the medial branch on the left side, She will be scheduled to have RFA of the right medial branch block cervical area at C2 ,C3 ,C4 - PQRS measures = - Patient's medications are documented in the chart. -Tobacco use is negative and counseling.Given. -Patient's has received pneumococcal vaccine. -Advanced care planning discussed, patient not eligible. -Opiate contract not signed. -Pain positive and follow-up visit/procedure is scheduled. -Patient's blood pressure measured [138/91 ] , and documented in the record ,and patient will follow up with the primary care. -Patient's weight was measured and body mass index within the normal limits and counseling was done. and patient instructed to follow-up with the primary care physician. -Patient was not identified as an unhealthy alcohol user
[2020-10-26 13:04] VITALS: BP 138/91; PULSE 75; RESP 18; TEMP 98.2
== END ==
LOC: PNWHC3 12:38
PROVIDERS: ATTEND Specialist
DX: M47.812 Spondylosis without myelopathy or radiculopathy, cervical region (principal); M96.1 Postlaminectomy syndrome, not elsewhere classified; M79.18 Myalgia, other site; Z87.891 Personal history of nicotine dependence
CPT/HCPCS: 99211

== ENCOUNTER 2020-11-18 11:44 | Day surgery (SDC) | payer MEDICARE, BC ==
[2020-11-15 12:38] VITALS: BMI 23.0
[2020-11-18 12:05] VITALS: TEMP 97.7
[2020-11-18] MEDS ORDERED: LIDOCAINE 1% (10MG/ML) FOR IV START INTRADERMA ONE (12:11)
[2020-11-18] MEDS ORDERED: LACTATED RINGERS 1,000 ML IV ONE (12:11)
[2020-11-18] MEDS ORDERED: LIDOCAINE 1% INJ 10MG/ML (20 ML MDV) ONE (12:12)
[2020-11-18] MEDS ORDERED: ROPIVACAINE 5MG/ML 20ML VIAL ONE (12:12)
[2020-11-18] MEDS ORDERED: fentaNYL (PF) 50 MCG/ML 2 ML AMP ONE (12:12)
[2020-11-18] MEDS ORDERED: MIDAZOLAM 2 MG/2 ML VIAL ONE (12:12)
--- NOTE | 2020-11-18 12:40 | P.PCN ---
Date of Procedure: 11/18/20 Description of Procedure: PREOPERATIVE DIAGNOSIS: Cervicalgia POSTOPERATIVE DIAGNOSIS: Same Surgeon: Catrachito Panchal M.D. PROCEDURE PERFORMED: Cervical Medial Branch Radiofrequency Ablation, at the following levels: C2-3, C3-4 right side ANESTHESIA: Lidocaine 1% 5 mL, Moderate sedation with intravenous Versed and fentanyl with anesthesia team ESTIMATED BLOOD LOSS: Minimal Fluoroscopy was used for the procedure and images were saved in the radiology portion of the chart. PROCEDURE INDICATION: The patient with neck pain secondary to cervical facet arthropathy who had more than 50% relief of pain with previous diagnostic lumbar medial branch block X2. PROCEDURE DESCRIPTION / TECHNIQUE: The patient was seen and identified in the preoperative area. Risks, benefits, complications, including but not limited to risk of infection ,bleeding , allergic reactions to the medications and incomplete pain relief , and alternatives were discussed with the patient, the patient agreed to proceed with the procedure and signed the consent. IV was started. The operative site was marked. Patient was taken to the OR and time out was completed. The patient was placed in the prone position on the procedure table. The lumbar area was prepped and draped in the usual sterile fashion. . Vital signs were closely monitored during the procedure .IV sedation was used during the procedure to decrease patients anxiety. An AP fluoroscopic public records officer film was taken to identify the dens, the C2,C3, C4 vertebral bodies, and the waists of the articular pillars at the aforementioned levels. A pillar (caudal tilt) view was utilized to highlight the waists of the articular pillars at these levels. The skin was prepped with chlorhexidine and draped in the usual sterile fashion. The skin and subcutaneous tissue overlying the above levels were anesthetized using a 25-gauge 1-1/2-inch needle with 1% preservative free lidocaine for a total volume of 1 ml per level. An 20-gauge and 100 mm SMK needle with a 10 mm active tip was advanced, coaxially, in the pillar view until the needle tip was noted to slide into the groove of the articular pillar. A true lateral view was obtained and the needle tips were advanced to cover to the lateral aspect C2-3 joint line [TON], lateral aspect of the articular pillar at C3, C4 , for corresponding medial branch ablation. The needles were advanced until bony contact was felt and the tip of the SMK needle was confirmed to be in the groove of the waist of the articular pillars at the aforementioned levels. The needle positions were confirmed with AP and lateral fluoroscopic views. Motor stimulation was then performed at 2 Hz and up to 2V with only paraspinal muscle contraction noted at each level and no upper extremity stimulation. At this point, after negative aspiration, ropivacaine 0.5% x 0.5 mL was injected at each level prior to radiofrequency ablation. Lesioning was then carried out at 85 degrees Celsius times 90 seconds with 2 cycles per level. Following lesioning the needles were removed. COMPLICATIONS: No acute complications. DISPOSITION / PLANS: The patient was placed in a supine position and transferred to the recovery area in a stable condition for observation and was discharged from the recovery room after meeting discharge criteria. Home discharge instructions given to the patient by the staff. The patient will follow up in clinic in 4 weeks.
[2020-11-18] MEDS ORDERED: IV FLUID CONTINUATION 1,000 ML IV ONE (12:45)
[2020-11-18 13:06] VITALS: BP 140/78; PULSE 78; RESP 18
--- NOTE | 2020-11-18 17:04 | FL ---
Fluoroscopy HISTORY: Pain 31 seconds fluoroscopy time supplied to the referring clinician. 2 intraoperative C-arm images docum ent the procedure. See dictated report from anesthesia.
== END 2020-11-18 13:20 | disposition home or self-care (01) ==
LOC: ORPAIN 11:44
PROVIDERS: ATTEND Anesthesiology
DX: M47.812 Spondylosis without myelopathy or radiculopathy, cervical region (principal); Z88.5 Allergy status to narcotic agent; Z90.710 Acquired absence of both cervix and uterus
CPT/HCPCS: 64633; 64634; J2250; J2001; J3010; J2795

== ENCOUNTER → 2020-11-23 | Outpatient (CLI) | payer MEDICARE, BC ==
--- NOTE | 2020-11-23 08:47 | CT ---
EXAMINATION TYPE: CT lumbar spine wo con DATE OF EXAM: 11/23/2020 COMPARISON: None HISTORY: 65-year-old female H/O back pain TECHNIQUE: Contiguous axial scanning of the lumbar spine without IV contrast. Coronal and sagittal re constructions performed. CT DLP: 943 mGycm Automated exposure control for dose reduction was used. FINDINGS: Suggestion of some surgical material near the GE junction. Advanced disc/endplate degenerative change at L5-S1. Mild at L3-L4 and L4-L5 with diffuse disc bulges . Facet arthropathy lower lumbar spine. Vertebral body heights are preserved and alignment is maintained. At L3-L4, posterior disc bulge impresses on the ventral thecal sac without significant spinal canal s tenosis. Along with facet arthropathy, there is mild to moderate right neuroforaminal stenosis. At L4-L5, diffuse disc bulge mildly narrows the spinal canal. It may abut the traversing L5 nerve pawel ts on both sides. Along with facet arthropathy, there is moderate right and mild to moderate left srikanth ral foraminal stenosis. At L5-S1, disc osteophyte complex may abut the traversing S1 nerve roots. No significant spinal canal stenosis. Along with facet arthropathy, there is moderate to severe left and moderate right foramina l stenosis. IMPRESSION: 1. DEGENERATIVE DISC DISEASE MID TO LOWER LUMBAR SPINE, MODERATE TO ADVANCED AT L5-S1. ADDITIONAL FAC ET ARTHROPATHY MID TO LOWER LUMBAR SPINE. 2. NO VERTEBRAL COMPRESSION COLLAPSE OR MALALIGNMENT. 3. OVERALL MILD NARROWING OF THE SPINAL CANAL AT L4-L5. DISC MATERIAL MAY ABUT THE TRAVERSING L5 NERV E ROOTS ON BOTH SIDES AT THIS LEVEL. MODERATE RIGHT AND MILD TO MODERATE LEFT FORAMINAL STENOSIS HERE . 4. DISC OSTEOPHYTE COMPLEX AND FACET ARTHROPATHY AT L5-S1. THERE MAY BE ABUTMENT OF THE TRAVERSING S1 NERVE ROOTS AT THIS LEVEL. CHANGES ALSO RESULT IN MODERATE TO SEVERE LEFT AND MODERATE RIGHT NEURAL FORAMINAL STENOSIS HERE.
== END | disposition home or self-care (01) ==
LOC: RADCTMAIN 06:36
PROVIDERS: ATTEND Family Medicine
DX: M51.37 Other intervertebral disc degeneration, lumbosacral region (principal); M47.816 Spondylosis without myelopathy or radiculopathy, lumbar region; M48.061 Spinal stenosis, lumbar region without neurogenic claudication; M99.73 Connective tissue and disc stenosis of intervertebral foramina of lumbar region; M25.78 Osteophyte, vertebrae
CPT/HCPCS: 72131

== ENCOUNTER → 2020-12-14 | Outpatient (CLI) | payer BC, MEDICARE, OTHER ==
[2020-12-14 13:03] VITALS: BP 116/82; PULSE 76; RESP 18; TEMP 98.2
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
== END | disposition home or self-care (01) ==
LOC: PNWHC3 12:51
PROVIDERS: ATTEND Specialist
DX: M51.36 Other intervertebral disc degeneration, lumbar region (principal); M47.812 Spondylosis without myelopathy or radiculopathy, cervical region; M47.816 Spondylosis without myelopathy or radiculopathy, lumbar region; M46.92 Unspecified inflammatory spondylopathy, cervical region; M46.96 Unspecified inflammatory spondylopathy, lumbar region; V89.2XXA Person injured in unspecified motor-vehicle accident, traffic, initial encounter; Z98.890 Other specified postprocedural states
CPT/HCPCS: 99211

== ENCOUNTER → 2020-12-27 | Outpatient (CLI) | payer MEDICARE, BC ==
--- NOTE | 2020-12-28 13:58 | MM ---
Reason for exam: screening (asymptomatic). Last mammogram was performed 1 year and 5 months ago. History: Patient is postmenopausal and is nulliparous. Benign excisional biopsy of the left breast, 2002. Physical Findings: A clinical breast exam by your physician is recommended on an annual basis and results should be correlated with mammographic findings. MG 3D Screening Mammo W/Cad Bilateral CC and MLO view(s) were taken. Prior study comparison: July 31, 2019, bilateral MG 3d screening mammo w/cad. June 06, 2017, mammogram. The breast tissue is heterogeneously dense. This may lower the sensitivity of mammography. Finding: There are stable fine diffuse/scattered calcifications. There is a stable group of calcifications in jairo left breast. Focal asymmetry left lower outer quadrant, stable. No significant changes in finding since July 31, 2019 and June 06, 2017. ASSESSMENT: Benign, BI-RAD 2 RECOMMENDATION: Routine screening mammogram of both breasts in 1 year.
== END | disposition home or self-care (01) ==
LOC: RADMAMWWP 13:14
PROVIDERS: ATTEND Family Medicine
DX: Z12.31 Encounter for screening mammogram for malignant neoplasm of breast (principal)
CPT/HCPCS: 77063; 77067

== ENCOUNTER 2021-01-06 | Day surgery (SDC) | payer MEDICARE, BC | END 2021-01-06 13:00 | disposition home or self-care (01) | CPT/HCPCS: 64493; 64494; J2250; J3301; J2001; J3010; Q9966; J2795 ==

== ENCOUNTER 2021-02-03 11:22 | Day surgery (SDC) | payer MEDICARE, BC ==
[2021-02-02 10:44] VITALS: BMI 21.7
[2021-02-03 11:42] VITALS: TEMP 97.8
[2021-02-03] MEDS ORDERED: LACTATED RINGERS 1,000 ML IV ONE (11:43)
[2021-02-03] MEDS ORDERED: TRIAMCINOLONE ACETONIDE 40 MG/ML 1 ML VIAL ONE (12:19)
[2021-02-03] MEDS ORDERED: ROPIVACAINE 5MG/ML 20ML VIAL ONE (12:19)
[2021-02-03] MEDS ORDERED: MIDAZOLAM 2 MG/2 ML VIAL ONE (12:19)
[2021-02-03] MEDS ORDERED: fentaNYL (PF) 50 MCG/ML 2 ML AMP ONE (12:19)
--- NOTE | 2021-02-03 12:40 | P.PCN ---
Description of Procedure: Description of Procedure: Date of Procedure: 02/03/21 Surgeon: Gabriel Sanabria Pathology: none sent Condition: stable Disposition: PACU Description of Procedure: PREOPERATIVE DIAGNOSIS : 1- Lumbar spondylosis with Facet Arthropathy without myelopathy . 2- Lumber degenerative disc disease POSTOPERATIVE DIAGNOSIS: 1- Lumbar spondylosis with Facet Arthropathy without myelopathy . 2- Lumber degenerative disc disease PROCEDURE: Second Diagnostic bilateral L4 -5 , and L5-S1 medial branch block under fluoroscopy Physician: Gabriel Sanabria MD ANESTHESIA: Local with 1% lidocaine; IV moderate conscious sedation by the anesthesia Department . EBL: Negligible COMPLICATION: None. PROCEDURE INDICATION: Chronic low back pain secondary to Facet arthropathy unresponsive to conservative treatment. PROCEDURE DESCRIPTION: the patient was seen and identified in the preop holding area , risks and benefits and possible complications of the procedure and alternatives were discussed with the patient, and the patient agreed to proceed with the procedure and signed the consent. IV was started and vital signs monitored during the procedure and fluoroscopy was used to maximize the benefit and accuracy of the needle placement, sedation was given to decrease patient anxiety, patient was taken to the procedure room and placed in prone position vital signs monitored. The patient was brought into the procedure room and placed in prone position. Skin was prepped with Chloraprep and draped in a sterile manner. Lidocaine 1% was used to numb the skin up at the target points that were chosen as follows: at the L5-S1 level which corresponds to the dorsal ramus of L5 the target points were at the superior medial aspect of the sacral ala on each side of the spine on the AP view of fluoroscopy, and for theL3 and L4 medial branches the target points were the connection between the transverse process and the superior to go process of L4 and L5 respectively on the oblique views of fluoroscopy. I used 22-gauge 3-1/2 inch Qu[place]ke spinal needles for this procedure and after contacting bone at the target points mentioned above I injected 1 mL of a mixture of Kenalog 40 mg +5 MLS of Ropivacaine 0.5% PF . Patient tolerated procedure well. At the end of the procedure the needles removed and a bandage applied after the skin was cleaned the cleaning solution. patient was then taken to the recovery room in stable condition and monitored in the recovery room for 20-30 minutes and discharged home in stable condition after discharge criteria met . A copy of the needle placement picture was saved to the C-arm machine.
[2021-02-03] MEDS ORDERED: IV FLUID CONTINUATION 1,000 ML IV ONE (12:45)
[2021-02-03 12:51] VITALS: RESP 16
--- NOTE | 2021-02-03 13:08 | FL ---
EXAMINATION TYPE: FL guided pain mgmt statistic DATE OF EXAM: 02/03/2021 HISTORY: Fluoroscopy time 5 seconds of fluoroscopy provided. IMPRESSION: 1. Fluoroscopy time.
[2021-02-03 13:13] VITALS: BP 106/74; PULSE 89
== END 2021-02-03 13:26 | disposition home or self-care (01) ==
LOC: ORPAIN 11:22
PROVIDERS: ATTEND Anesthesiology
DX: G89.29 Other chronic pain (principal); M47.816 Spondylosis without myelopathy or radiculopathy, lumbar region; M51.36 Other intervertebral disc degeneration, lumbar region; Z88.5 Allergy status to narcotic agent; J44.9 Chronic obstructive pulmonary disease, unspecified; E07.9 Disorder of thyroid, unspecified; F32.9 Major depressive disorder, single episode, unspecified; K21.9 Gastro-esophageal reflux disease without esophagitis; Z90.710 Acquired absence of both cervix and uterus; M79.7 Fibromyalgia; Z79.891 Long term (current) use of opiate analgesic; Z79.51 Long term (current) use of inhaled steroids; Z79.899 Other long term (current) drug therapy
CPT/HCPCS: 64493; 64494; J2250; J3301; J3010; J2795

== ENCOUNTER → 2021-02-27 | Outpatient (CLI) | payer OTHER, MEDICARE, BC ==
--- NOTE | 2021-02-27 13:32 | P.PAINPG ---
Subjective Progress Note Date: 02/27/21 This is follow up visit for this 65 years old female with a chronic history of severe neck pain and low back pain, she is diagnosed with cervical spondylosis and cervical facet arthropathy, and failed back surgery syndrome cervical area, status post RFA of the medial branch cervical area at C2, C3, C4, her pain on the side improved significantly. She is also complaining about low back pain so recently we have performed bilateral L4-L5 and L5-S1 medial branch blocks 2. We had also started her on Flexeril 10 mg BID and gave her a prescription for PT. She went to one visit of PT who told her to come back after her radiofrequency ablation. Overall the medial branch blocks improved her pain by about 80% and she would like to proceed with radiofrequency ablation. She will perform physical therapy and other conservative measures after the procedure. she denies any weakness in the lower extremity, she denies any fever or night sweats she denies any change in bowel movement or urination - Exam Physical Examinations : -Constitutiona : Cooperative , not in acute distress . -HEENT : nech : supple , no Lymphadenopathy , normal thyroid size . : eyes : no ptosis , no icterus, no photophobia . - neurologic : Cranial nerve II to XII intact , no focal neurological deffecit . -psychatric : alert , oriented X 3 , appropriate affect , intact judgment and insight . -Lymphatic : no Lymphadenopathy . - musculoskeltal : Cervical Spine motor stregnth in the deltoid and biceps, normal right side , normal Left side motor stregnth biceps and the wrist extensors normal right side ,normal left side . motor stregnth in the triceps muscle . normal Right side , normal Left side deep tendon reflexes normal at the biceps , normal at Brachioradialis , normal at triceps. cervical facet loading test: Positive Bilaterally Multiple trigger point identified in the cervical paraspinal muscles Lumber spine moter stegnth lower extremities ,thigh and legs 5/5 Right side , 5/5 Left side deep tendon reflexes : normal Knee Jerk , normal ankle Jerk lumber facet Loading Test =positive Right , positive Left Range of motion of the lumbar spine Flexion 30 degrees, extension 10 degrees strait leg raising test = positive at 30 degree Fabere test= positive Right , and positive LT . Sever tenderness over the Sacroiliac joint on the Right , and Left sides MRI of the lumbar spine multilevel lumbar degenerative disc disease and multilevel lumbar facet arthropathy Assessment and Plan Plan: Assessment and plan=1-cervical spondylosis with cervical facet arthropathy 2-myofascial pain syndrome and cervical paraspinal muscles 3-lumbar spondylosis with lumbar facet arthrop athy. Proceed with bilateral L4-L5 and L5-S1 radiofrequency ablation. I have spent 22 minutes on patient care today. The time was used to review the medical records including relevant urine studies and prescription history, review of the available imaging, evaluation and examination of the patient, coordination of care with the medical staff and if applicable referring physici ans, as well as creation of the medical record. - PQRS measures = - Patient's medications are documented in the chart. -Tobacco use is negative and counseling.Given. -Patient's has not received pneumococcal vaccine. -Advanced care planning discussed, patient not eligible. -Opiate contract not signed. -Pain positive and follow-up visit/procedure is scheduled. -Patient's blood pressure measured [ 116/82 ] , and documented in the record ,and patient will follow up with the primary care. -Patient's weight was measured and body mass index [22.5 ] above the normal limits and counseling was done. and patient instructed to follow-up with the primary care physician. -Patient was not identified as an unhealthy alcohol user PQRS Measure Charge Sheet PQRS Narrative: Smoking Status Former smoker Pain Intensity [Back] 7 Scale Used Numeric (1 - 10) Hx Alcohol Use (MH) Yes Home Medications: Ambulatory Orders Lansoprazole 30 mg PO BID 09/09/14 Albuterol Sulfate [Proair Hfa] 1 - 2 puff INHALATION Q6HR PRN 09/25/14 Beclomethasone Dipropionate [Qvar 80 mcg/puff] 2 puff INHALATION BID PRN 09/25/14 Hydrocodone/Acetaminophen [[place] 7.5-325] 0.5 - 1 each PO Q4-6H PRN 10/26/14 tiZANidine HCL [Zanaflex] 4 mg PO Q8HR PRN 05/16/20 Methimazole [Tapazole] 2.5 mg PO DAILY 08/09/20 Citalopram Hydrobromide [Citalopram HBr] 20 mg PO DAILY 09/15/20 Cyclobenzaprine [Flexeril] 10 mg PO BID PRN 12/14/20 diphenhydrAMINE [Benadryl] 25 mg PO Q6H 02/23/21 Controlled Substance Measures - Controlled Substance Measures Is patient prescribed a controlled substance at discharge?: No
[2021-02-27 13:40] VITALS: BP 136/88; PULSE 74; RESP 18; TEMP 98.2
== END | disposition home or self-care (01) ==
LOC: PNWHC3 13:05
PROVIDERS: ATTEND Anesthesiology
DX: M47.892 Other spondylosis, cervical region (principal); M47.896 Other spondylosis, lumbar region; M79.18 Myalgia, other site
CPT/HCPCS: 99211

== ENCOUNTER 2021-04-07 12:08 | Day surgery (SDC) | payer OTHER, MEDICARE, BC ==
[2021-04-05 15:14] VITALS: BMI 21.5
[2021-04-07] MEDS ORDERED: LIDOCAINE 1% (10MG/ML) FOR IV START INTRADERMA ONE (12:38)
[2021-04-07 12:39] VITALS: TEMP 96.9
[2021-04-07] MEDS ORDERED: fentaNYL (PF) 50 MCG/ML 2 ML AMP ONE (12:44)
[2021-04-07] MEDS ORDERED: MIDAZOLAM 2 MG/2 ML VIAL ONE (12:44)
[2021-04-07] MEDS ORDERED: ROPIVACAINE 5MG/ML 20ML VIAL ONE (12:44)
[2021-04-07] MEDS ORDERED: TRIAMCINOLONE ACETONIDE 40 MG/ML 1 ML VIAL ONE (12:44)
[2021-04-07] MEDS ORDERED: IV FLUID CONTINUATION 1,000 ML IV ONE (13:16)
--- NOTE | 2021-04-07 13:18 | P.PCN ---
Date of Procedure: 04/07/21 Procedure(s) Performed: PREOPERATIVE DIAGNOSIS: 1-Lumbar Spondylosis with Facet Arthropathy without myelopathy. POSTOPERATIVE DIAGNOSIS: 1- Lumbar Spondylosis with Facet Arthropathy without myelopathy. PROCEDURES : Bilateral Radiofrequency thermocoagulation, L3 , L4 , and L5 medial branch, with fluoroscopic guidance (fluoroscopy images available in the radiology department) ( to denervate the facet joint at bilateral L4-5 ,and L5-S1 levels ). ANESTHESIA: Monitored anesthesia care. EBL: Minimal PROCEDURE INDICATION: The patient with low back pain secondary to lumbar facet arthropathy who had more than 50% relief of her pain with previous diagnostic adwoa mbar medial branch block with bupivacaine. PROCEDURE DESCRIPTION / TECHNIQUE: The patient was seen and identified in the preoperative area. Risks, benefits, complications, including but not limited to risk of infection ,bleeding , allergic reactions to the medications and no complete pain releife , and alternatives were discussed with the patient, the patient agreed to proceed with the procedure and signed the consent. IV was started. Vital signs remained stable throughout the procedure. Patient was taken to the OR and time out was completed. The patient was placed in the prone position on the procedure table. The lumber area was prepped and draped in the usual sterile fashion. . Vital signs were closely monitored during the procedure .IV sedation was used during the procedure to decrease patients anxiety. Using AP and then oblique fluoroscopy, the ``eye of the Bairon dog corresponding to the connection between the superior and transverse articular processes of right L3, L4, and L5 were identified, marked, and localized with 1% lidocaine. Subsequently, a 18 [id number] radiofrequency cannula with a 10- mm active tip was advanced guided by fluoroscopy to each of the``eyes of the Bairon dog at right L3, L4, and L5. Each site then underwent sensory testing at 50 Hz and 0 to 1 volt and motor testing at 2.5 Hz and 0 to 3 volt with local stimulation, but no radicular symptoms down the legs. Thereafter each sites underwent radiofrequency thermocoagulation at 80 degrees celsius for 90 seconds after injecting 0.5 ml of PF Ropivacaine 1ml, then after the thermocoagulation done , 1 ml of the block solution containing Kenalog 20 mg and 3 ml of Ropivacaine 0.5% was injected at the right L3 , L4 , and L5 , levels after negative aspiration of CSF and blood and with no paresthesias. Cannulas were retracted while injecting lidocaine 1% until the needle is out. The same procedure was repeated at the level of Left L3, L4, and L5 levels. At the end of the procedure, the skin was cleansed and bandages were applied. COMPLICATIONS: No acute complications. DISPOSITION / PLANS: The patient was placed in a supine position and transferred to the recovery area in a stable condition for observation and was discharged from the recovery room after meeting discharge criteria. Home discharge instructions given to the patient by the staff. The patient was reexamined prior to discharge. The patient will schedule a follow up in the clinic in 2-4 weeks.
--- NOTE | 2021-04-07 13:28 | FL ---
Fluoroscopy HISTORY: Pain 13 seconds fluoroscopy time supplied to the referring clinician. 6 intraoperative C-arm images docum ent the procedure. See dictated report from anesthesia.
[2021-04-07 13:49] VITALS: BP 117/57; PULSE 78; RESP 18
== END 2021-04-07 13:50 | disposition home or self-care (01) ==
LOC: ORPAIN 12:08
PROVIDERS: ATTEND Specialist
DX: M47.816 Spondylosis without myelopathy or radiculopathy, lumbar region (principal)
CPT/HCPCS: 64635; 64636; J2250; J3301; J3010; J2795

== ENCOUNTER → 2021-04-11 | Outpatient (CLI) | payer BC, MEDICARE, OTHER ==
--- NOTE | 2021-04-12 02:15 | MR ---
EXAMINATION TYPE: MR lumbar spine wo con DATE OF EXAM: 04/11/2021 COMPARISON: None HISTORY: Low back pain Multiplanar multiecho imaging of the lumbar spine without contrast. Lumbar vertebra have normal alignment. There is degenerative disc space narrowing at L5-S1. There is posterior disc bulging at L4-5 and L5-S1. There is no compression fracture. There is mild narrowing o f the neural foramina on the right side at L4-5 and L5-S1 due to the disc bulging and facet arthropat hy and disc space narrowing. There is developmentally adequate spinal canal and no spinal stenosis. T here is no lumbar paraspinal mass. The posterior elements are intact. Sacroiliac joints appear intact . There is right side posterior disc bulging at L3-4. IMPRESSION: Mild posterior disc bulging and herniation in the midline and towards the right side from levels of L 3-S1. No spinal stenosis. No fracture. Right side lumbar neural foraminal narrowing.
== END | disposition home or self-care (01) ==
LOC: RADMRIMAIN 12:47
PROVIDERS: ATTEND Orthopaedic Surgery
DX: M48.061 Spinal stenosis, lumbar region without neurogenic claudication (principal); M51.26 Other intervertebral disc displacement, lumbar region
CPT/HCPCS: 72148

== ENCOUNTER 2021-04-12 08:16 | Day surgery (SDC) | payer MEDICARE, BC ==
[2021-04-05 15:25] VITALS: BMI 21.5
--- NOTE | 2021-04-12 08:32 | P.GSHP ---
History of Present Illness H&P Date: 04/12/21 CHIEF COMPLAINT: GERD HISTORY OF PRESENT ILLNESS: The patient is a 65-year-old female who presents reports gastroesophageal reflux disease. Upper endoscopy was offered for further evaluation and management. PAST MEDICAL HISTORY: Please see list. PAST SURGICAL HISTORY: Please see list. MEDICATIONS: Please see list. ALLERGIES: Please see list. SOCIAL HISTORY: No illicit drug use FAMILY HISTORY: No reports of Crohn disease or ulcerative colitis. REVIEW OF ORGAN SYSTEMS: CONSTITUTIONAL: No reports of fevers or chills. GI: Denies any blood in stools or constipation. PHYSICAL EXAM: VITAL SIGNS: Stable GENERAL: Well-developed and pleasant in no acute distress. HEENT: No scleral icterus. Extraocular movements grossly intact. Moist buccal mucosa. NECK: Supple without lymphadenopathy. CHEST: Unlabored respirations. Equal bilateral excursions. CARDIOVASCULAR: Regular rate and rhythm. Distal 2+ pulses. ABDOMEN: Soft, nondistended. MUSCULOSKELETAL: No clubbing, cyanosis, or edema. ASSESSMENT: 1. Gastroesophageal reflux disease PLAN: 1. Recommend proceeding with an upper endoscopy Past Medical History Past Medical History: Asthma, COPD, Fibromyalgia, GERD/Reflux, Osteoarthritis (OA), Thyroid Disorder Additional Past Medical History / Comment(s): "Recent allergic reaction, now taking daily OTC Allergy Pill." History of Any Multi-Drug Resistant Organisms: None Reported Past Surgical History: Hysterectomy Additional Past Surgical History / Comment(s): Neck Fusion 2006, EGD, Bunionectomy, PAIN CLINIC PROCEDURES. Past Anesthesia/Blood Transfusion Reactions: No Reported Reaction Past Psychological History: Depression Smoking Status: Former smoker Past Alcohol Use History: Rare Additional Past Alcohol Use History / Comment(s): Quit smoking Jul 2019. Past Drug Use History: Marijuana Additional Drug Use History / Comment(s): MEDICAL USE-uses daily-INSTRUCTED TO REFRAIN FROM USE FOR AT LEAST 24 HOURS PRIOR TO PROCEDURE. - Past Family History Mother Family Medical History: Cancer Medications and Allergies Home Medications Medication Instructions Recorded Confirmed Type Lansoprazole 30 mg PO BID 09/09/14 04/07/21 History Albuterol Sulfate [Proair Hfa] 1 - 2 puff INHALATION Q6HR PRN 09/25/14 04/07/21 History Beclomethasone Dipropionate [Qvar 2 puff INHALATION BID PRN 09/25/14 04/07/21 History 80 mcg/puff] Hydrocodone/Acetaminophen [[place] 0.5 - 1 each PO Q4-6H PRN 10/26/14 04/07/21 History 7.5-325] Methimazole [Tapazole] 2.5 mg PO QAM 08/09/20 04/07/21 History Citalopram Hydrobromide 20 mg PO DAILY 09/15/20 04/07/21 History [Citalopram HBr] Cyclobenzaprine [Flexeril] 10 mg PO BID PRN 12/14/20 04/07/21 History Otc Allergy Pill (Unknown Name 1 tab PO DAILY 04/05/21 04/07/21 History Allergies Allergy/AdvReac Type Severity Reaction Status Date / Time meperidine HCl [From Demerol] AdvReac Vomiting Verified 04/07/21 12:39
[2021-04-12 08:47] VITALS: TEMP 97.5
[2021-04-12] MEDS ORDERED: LACTATED RINGERS 1,000 ML IV ONE (08:59)
[2021-04-12] MEDS ORDERED: PROPOFOL 10 MG/ML 20 ML VIAL IV ONE (09:22)
[2021-04-12] MEDS ORDERED: LIDOCAINE 1% INJ 10MG/ML (20 ML MDV) ONE (09:22)
[2021-04-12 09:56] VITALS: BP 115/76; PULSE 78; RESP 16
--- NOTE | 2021-04-12 10:46 | P.PCN ---
Date of Procedure: 04/12/21 Description of Procedure: PREOPERATIVE DIAGNOSIS: Gastroesophageal reflux disease. History of hiatal hernia repair Atypical chest pain POSTOPERATIVE DIAGNOSIS: Gastroesophageal reflux disease. Diaphragmatic hiatal hernia, recurrent Gastritis Yeast esophagitis OPERATION: Esophagogastroduodenoscopy with biopsies along antrum, duodenum and esophagus SURGEON: Christine Bejarano MD ANESTHESIA: MAC. INDICATIONS: The patient is a 65-year-old female who presents with a history of reflux disease. Benefits and risks of the procedure were described. Informed consent was obtained. DESCRIPTION: The patient was brought into the endoscopy suite and laid in the left lateral decubitus position. An Olympus gastroscope was passed along the posterior oropharynx down to the distal esophagus where the squamocolumnar junction was encountered at 33 cm from the incisors. The stomach was entered and no bile reflux was found. Additional findings are listed below. Biopsies with cold forceps were obtained of the antrum. The first through third portion of the duodenum was examined with biopsies obtained for celiac disease. Retroflexion of the scope confirmed Hill grade 3 lower esophageal valve. The squamocolumnar junction demonstrated LA grade A erosive esophagitis. The stomach was desufflated. The patient tolerated the procedure well. FINDINGS: Squamocolumnar junction 33 cm from the incisors. Diaphragmatic hiatus at 35 cm. Hiatal hernia, 2 cm Hill grade 3 lower esophageal valve. LA grade A erosive esophagitis. Features of celiac disease with biopsies obtained Multiple pasty positive suspicious for yeast esophagitis with biopsies obtained RECOMMENDATIONS: 1. Biopsies pending treatment for yeast esophagitis 2. Recommend esophageal manometry for further assessment of atypical chest pain Plan - Discharge Summary Discharge Rx Participant: No New Discharge Prescriptions: Continue Lansoprazole 30 mg PO BID Albuterol Sulfate [Proair Hfa] 1 - 2 puff INHALATION Q6HR PRN PRN Reason: Shortness Of Breath Beclomethasone Dipropionate [Qvar 80 mcg/puff] 2 puff INHALATION BID PRN PRN Reason: Shortness Of Breath Hydrocodone/Acetaminophen [[place] 7.5-325] 0.5 - 1 each PO Q4-6H PRN PRN Reason: Pain Cyclobenzaprine [Flexeril] 10 mg PO BID PRN PRN Reason: Pain Otc Allergy Pill (Unknown Name 1 tab PO DAILY Discharge Medication List Lansoprazole 30 mg PO BID 03/05/15 [History] Albuterol Sulfate [Proair Hfa] 1 - 2 puff INHALATION Q6HR PRN 09/25/14 [History] Beclomethasone Dipropionate [Qvar 80 mcg/puff] 2 puff INHALATION BID PRN 09/25/14 [History] Hydrocodone/Acetaminophen [[place] 7.5-325] 0.5 - 1 each PO Q4-6H PRN 10/26/14 [History] Cyclobenzaprine [Flexeril] 10 mg PO BID PRN 12/14/20 [History] Otc Allergy Pill (Unknown Name 1 tab PO DAILY 04/05/21 [History] Follow up Appointment(s)/Referral(s): Christine Bejarano MD [STAFF PHYSICIAN] - 04/25/21 Patient Instructions/Handouts: *[facility] - (Anesthesia) Endoscopy Discharge Instructions, Hiatal Hernia (DC), Gastritis (DC), Diet for Stomach Ulcers and Gastritis (ED), Upper Endoscopy (DC) Discharge Disposition: HOME SELF-CARE
== END 2021-04-12 10:30 | disposition home or self-care (01) ==
LOC: ORWHC2ENDO 08:16
PROVIDERS: ATTEND Surgery Plastic and Reconstructive Surgery
DX: K44.9 Diaphragmatic hernia without obstruction or gangrene (principal); K21.00 Gastro-esophageal reflux disease with esophagitis, without bleeding; K29.80 Duodenitis without bleeding; K31.9 Disease of stomach and duodenum, unspecified; B37.81 Candidal esophagitis; J44.9 Chronic obstructive pulmonary disease, unspecified; R07.89 Other chest pain; M79.7 Fibromyalgia; K29.70 Gastritis, unspecified, without bleeding; M19.90 Unspecified osteoarthritis, unspecified site; E07.9 Disorder of thyroid, unspecified; Z90.710 Acquired absence of both cervix and uterus; Z98.1 Arthrodesis status; Z98.890 Other specified postprocedural states; F32.9 Major depressive disorder, single episode, unspecified; Z87.891 Personal history of nicotine dependence; Z79.899 Other long term (current) drug therapy; Z80.9 Family history of malignant neoplasm, unspecified; Z88.5 Allergy status to narcotic agent
CPT/HCPCS: 88305; 88312; 43239; J2001; J2704

== ENCOUNTER → 2021-05-01 | Outpatient (CLI) | payer OTHER, MEDICARE, BC ==
[2021-05-01 12:33] VITALS: BP 120/82; PULSE 84; RESP 18; TEMP 96.8
--- NOTE | 2021-05-01 12:50 | P.PAINPG ---
Subjective Progress Note Date: 05/01/21 Principal diagnosis: Lumbar back pain, and neck pain. Mrs. Mccollum is a 65 year old pleasant female patient came to [facility] pain management clinic for postprocedure evaluation. Patient had bilateral lumbar L4-L5, L5-S1 medial branch radiofrequency ablation on 04/07/2021. Patient had more than 70% pain relief started a few days ago but still working. Patient can able to function better with her activities of daily living, able to sleep better. She is taking pain medications as needed only. Patient described pain as aching, sharp, throbbing type of pain. Patient rated pain 3 out of 10 in severity. Which may very her pain level from 3-9 out of 10 in severity. Pain increases with activities, and standing, walking, sitting, bending forward, and lifting. Pain decreases with intervention procedure and marijuana. Overall patient activities decreased secondary to pain. Pain medications helping to some extent. Because of the pain patient is feeling lack of sleep and interest and energy. Denied any bowel or bladder problems. Patient denies any adverse effects to medications. Not using any walking aids for walking. Patient denied any suicidal / homicidal tendency at this time. There are no signs of narcotic diversion/misuse/overuse and no new-onset weakness, bowel/bladder incontinence, saddle anesthesia, or no red flag symptoms. Objective - Vital Signs Vital signs: Vital Signs Temp 96.8 F L 05/01/21 12:29 Pulse 84 05/01/21 12:29 Resp 18 05/01/21 12:29 BP 120/82 05/01/21 12:29 Pulse Ox 99 05/01/21 12:29 - Exam General: Well-developed, well-nourished, no acute distress HEENT: Normocephalic, and atraumatic Neck: Supple, no neck swelling Psychiatric: Appropriate mood, and affect [employer]: No focal neurological deficits Musculoskeletal: Upper extremity: Normal strength, and range of motion. Sensation grossly intact Lower extremity: Normal strength, and decreased range of motion secondary to pain Lumbar spine: Paravertebral tenderness: positive Lumbar facet load test : positive Sacroiliac joint tenderness: Positive Thigh thrust test: Positive SI joint compression test: Positive Fabere test: Positive Cervical spine: Paravertebral tenderness: Positive Cervical spine facet abimael: Positive Cervical spine Spurling test: Negative Multiple trigger points positive in lumbar, and cervical area - Constitutional Constitutional Comment(s): 13 point review of symptoms negative except as mentioned in the history of present illness. Assessment and Plan Assessment: Lumbar spondylosis without myelopathy Myofascial pain syndrome Cervical spondylosis without myelopathy Plan: #1 Diagnoses, prognosis, and multiple treatment options including but not limited to physical therapy, interventional therapy, adjunct medication therapy, narcotic medication, and surgical options were discussed with the patient. And all questions were answered to the patient's satisfaction. #2 treatment plan agreement : Patient was thoroughly discussed regarding the treatment options, alternatives, and importance of exercises as tolerated. Patient clearly understood. #3 Patient was counseled on importance of regular exercise. Including jose alfredo chi, aerobic exercises as tolerated. Which helps for chronic pain, and overall well- being. Patient also counseled regarding importance of weight control rolling chronic pain, and overall other health issues. By altering diet habits, minimizing sugar intake, and processed foods helps in minimizing Inflammation. Also discussed with the patient regarding intermittent fasting. Patient counseled regarding smoking associated with chronic pain, worsening inflammation, and smoking effects on liver, and medication metabolism. And encouraged to stop smoking. #4 investigations: MAPS- reviewed , urine drug test- not tested #5 diagnostic tests: None #6 consultation : None # 7 interventional procedures: None at this time #8 medications None from the pain clinic #9 morphine milligrams equivalents dose ( MME) per day: 0 from the pain clinic. # 10 patient recommended to try TENS unit's, and percussion massage device #11 disposition: scheduled to follow up with pain clinic as needed in future Time with Patient: Less than 30 PQRS Measure Charge Sheet Measure #226: Tobacco Use: Screen & Cessation Intervention: Pt not a tobacco user Measure #111: Pneumonia Vaccination: Pneumococcal vaccine NOT administered or previously given Measure #47: Advance Care Plan: Advance care planning discussed & documented, pt chose/unable to give Measure #412: Opioid Treatment Agreement: No documentation of signed opioid treatment agreement Measure #408: Opioid Therapy Follow-up Evaluation: Patient had NO f/u eval minimum every 3 months during opioid therapy Measure #317: Preventitive Care & Scrn High Bld Press & F/U: Normal blood pressure, f/u not required Measure #128: Body Mass Index (BMI) Screening & Follow-up: BMI documented within normal parameters Measure #131: Pain Assessment & Follow-up: Pain positive & plan documented Measure #431: Unhealthy Alcohol Use Preventative Care & Scrn: Patient not identified as an unhealthy alcohol user Mode of Arrival: Ambulatory - Pain Location Left Lower Back Non-Pharmacological Interventions: Home Exercise, Inactivity, Physical Therapy, Stretching Pharmacological Interventions: Block, PRN Medication PQRS Narrative: Smoking Status Former smoker Blood Pressure 120/82 Pain Intensity [Left Lower 4 Back] Scale Used Numeric (1 - 10) Hx Alcohol Use (MH) Yes Home Medications: Ambulatory Orders Lansoprazole 30 mg PO BID 09/09/14 Albuterol Sulfate [Proair Hfa] 1 - 2 puff INHALATION Q6HR PRN 09/25/14 Beclomethasone Dipropionate [Qvar 80 mcg/puff] 2 puff INHALATION BID PRN 0 09/25/14 Hydrocodone/Acetaminophen [[place] 7.5-325] 0.5 - 1 each PO Q4-6H PRN 10/26/14 Cyclobenzaprine [Flexeril] 10 mg PO BID PRN 12/14/20 Otc Allergy Pill (Unknown Name 1 tab PO DAILY 04/05/21 Fluconazole [Diflucan] 200 mg PO DAILY #21 tab 04/27/21 Controlled Substance Measures - Controlled Substance Measures Is patient prescribed a controlled substance at discharge?: No
== END | disposition home or self-care (01) ==
LOC: PNWHC3 12:22
DX: M47.892 Other spondylosis, cervical region (principal); M47.816 Spondylosis without myelopathy or radiculopathy, lumbar region
CPT/HCPCS: 99211

== ENCOUNTER 2021-06-08 08:21 | Day surgery (SDC) | payer MEDICARE, BC ==
[2021-05-31 14:13] VITALS: BMI 21.2
--- NOTE | 2021-06-08 06:28 | P.GSHP ---
History of Present Illness H&P Date: 06/08/21 CHIEF COMPLAINT: GERD HISTORY OF PRESENT ILLNESS: The patient is a 65-year-old female who presents reports gastroesophageal reflux disease. Upper endoscopy was offered for further evaluation and management. PAST MEDICAL HISTORY: Please see list. PAST SURGICAL HISTORY: Please see list. MEDICATIONS: Please see list. ALLERGIES: Please see list. SOCIAL HISTORY: No illicit drug use FAMILY HISTORY: No reports of Crohn disease or ulcerative colitis. REVIEW OF ORGAN SYSTEMS: CONSTITUTIONAL: No reports of fevers or chills. GI: Denies any blood in stools or constipation. PHYSICAL EXAM: VITAL SIGNS: Stable GENERAL: Well-developed and pleasant in no acute distress. HEENT: No scleral icterus. Extraocular movements grossly intact. Moist buccal mucosa. NECK: Supple without lymphadenopathy. CHEST: Unlabored respirations. Equal bilateral excursions. CARDIOVASCULAR: Regular rate and rhythm. Distal 2+ pulses. ABDOMEN: Soft, nondistended. MUSCULOSKELETAL: No clubbing, cyanosis, or edema. ASSESSMENT: 1. Gastroesophageal reflux disease PLAN: 1. Recommend proceeding with an upper endoscopy Past Medical History Past Medical History: Asthma, COPD, Fibromyalgia, GERD/Reflux, Osteoarthritis (OA), Thyroid Disorder Additional Past Medical History / Comment(s): Back pain. "Something wrong with disc in back". History of Any Multi-Drug Resistant Organisms: None Reported Past Surgical History: Hysterectomy Additional Past Surgical History / Comment(s): Neck Fusion 2006, EGD, Bunionectomy, PAIN CLINIC PROCEDURES. Past Anesthesia/Blood Transfusion Reactions: No Reported Reaction Past Psychological History: Depression Smoking Status: Former smoker Past Alcohol Use History: Rare Additional Past Alcohol Use History / Comment(s): Quit smoking Jul 2019. Past Drug Use History: Marijuana Additional Drug Use History / Comment(s): MEDICAL USE-uses daily-INSTRUCTED TO REFRAIN FROM USE FOR AT LEAST 24 HOURS PRIOR TO PROCEDURE. - Past Family History Mother Family Medical History: Cancer Medications and Allergies Home Medications Medication Instructions Recorded Confirmed Type Lansoprazole 30 mg PO BID 09/09/14 05/31/21 History Albuterol Sulfate [Proair Hfa] 1 - 2 puff INHALATION Q6HR PRN 09/25/14 05/31/21 History Beclomethasone Dipropionate [Qvar 2 puff INHALATION BID PRN 09/25/14 05/31/21 History 80 mcg/puff] Hydrocodone/Acetaminophen [Priddy 0.5 - 1 each PO Q4-6H PRN 10/26/14 05/31/21 History 7.5-325] Cyclobenzaprine [Flexeril] 10 mg PO BID PRN 12/14/20 05/31/21 History Fluconazole [Diflucan] 200 mg PO DAILY #21 tab 04/27/21 05/31/21 Rx Atorvastatin [Lipitor] 20 mg PO DAILY 05/31/21 05/31/21 History Citalopram Hydrobromide 40 mg PO DAILY 05/31/21 05/31/21 History [Citalopram HBr] methIMAzole [Tapazole] 2.5 mg PO DAILY 05/31/21 05/31/21 History Allergies Allergy/AdvReac Type Severity Reaction Status Date / Time meperidine HCl [From Demerol] AdvReac Vomiting Verified 05/31/21 13:55
[2021-06-08] MEDS ORDERED: LIDOCAINE 1% (10MG/ML) FOR IV START INTRADERMA ONE (09:15)
[2021-06-08 09:17] VITALS: RESP 16; TEMP 98.1
[2021-06-08 09:29] LABS: Glucose,Whole Blood 102 mg/dL (75-99)
[2021-06-08] MEDS ORDERED: MIDAZOLAM 2 MG/2 ML VIAL ONE (09:30)
[2021-06-08] MEDS ORDERED: .fentaNYL (PF) 50 MCG/ML AMP ONE (09:30)
[2021-06-08] MEDS ORDERED: LIDOCAINE 1% INJ 10MG/ML (20 ML MDV) ONE (09:30)
[2021-06-08] MEDS ORDERED: PROPOFOL 10 MG/ML 20 ML VIAL IV ONE (09:30)
--- NOTE | 2021-06-08 09:55 | P.PCN ---
Date of Procedure: 06/08/21 Description of Procedure: PREOPERATIVE DIAGNOSIS: Gastroesophageal reflux disease. Candidiasis of the esophagus POSTOPERATIVE DIAGNOSIS: Gastroparesis. Gastritis. Gastroesophageal reflux disease. Diaphragmatic hiatal hernia OPERATION: Esophagogastroduodenoscopy with biopsies along antrum. SURGEON: Christine Bejarano MD ANESTHESIA: MAC. INDICATIONS: The patient is a 65-year-old female who presents with a history of reflux disease. Benefits and risks of the procedure were described. Informed consent was obtained. DESCRIPTION: The patient was brought into the endoscopy suite and laid in the left lateral decubitus position. An Olympus gastroscope was passed along the posterior oropharynx down to the distal esophagus where the squamocolumnar junction was encountered at 36 cm from the incisors. The stomach was entered and no bile reflux was found. Additional findings are listed below. Biopsies with cold forceps were obtained of the antrum. The first through third portion of the duodenum was examined. Retroflexion of the scope confirmed Hill grade 3 lower esophageal valve. The squamocolumnar junction demonstrated LA grade B erosive esophagitis. The stomach was desufflated. The patient tolerated the procedure well. FINDINGS: Squamocolumnar junction 36 cm from the incisors. Diaphragmatic hiatus at 38 cm. Hiatal hernia, 2 cm Hill grade 3 lower esophageal valve. LA grade B erosive esophagitis. Moderate retained food within stomach for gastroparesis Chronic gastritis Resolved candidiasis of the esophagus RECOMMENDATIONS: Upper endoscopy as needed. Plan - Discharge Summary Discharge Rx Participant: No New Discharge Prescriptions: Continue Lansoprazole 30 mg PO BID Albuterol Sulfate [Proair Hfa] 1 - 2 puff INHALATION Q6HR PRN PRN Reason: Shortness Of Breath Beclomethasone Dipropionate [Qvar 80 mcg/puff] 2 puff INHALATION BID PRN PRN Reason: Shortness Of Breath Hydrocodone/Acetaminophen [[place] 7.5-325] 0.5 - 1 each PO Q4-6H PRN PRN Reason: Pain Cyclobenzaprine [Flexeril] 10 mg PO BID PRN PRN Reason: Pain methIMAzole [Tapazole] 2.5 mg PO DAILY Citalopram Hydrobromide 40 mg PO DAILY Atorvastatin [Lipitor] 20 mg PO DAILY Discontinued Fluconazole [Diflucan] 200 mg PO DAILY #21 tab Discharge Medication List Lansoprazole 30 mg PO BID 09/09/14 [History] Albuterol Sulfate [Proair Hfa] 1 - 2 puff INHALATION Q6HR PRN 09/25/14 [History] Beclomethasone Dipropionate [Qvar 80 mcg/puff] 2 puff INHALATION BID PRN 09/25/14 [History] Hydrocodone/Acetaminophen [[place] 7.5-325] 0.5 - 1 each PO Q4-6H PRN 10/26/14 [History] Cyclobenzaprine [Flexeril] 10 mg PO BID PRN 12/14/20 [History] Atorvastatin [Lipitor] 20 mg PO DAILY 05/31/21 [History] Citalopram Hydrobromide 40 mg PO DAILY 05/31/21 [History] methIMAzole [Tapazole] 2.5 mg PO DAILY 05/31/21 [History] Follow up Appointment(s)/Referral(s): Christine Bejarano MD [STAFF PHYSICIAN] - As Needed Patient Instructions/Handouts: Gastritis (ED), Gastroparesis (DC), Hiatal Hernia (DC) Discharge Disposition: HOME SELF-CARE
[2021-06-08 10:06] VITALS: BP 117/79; PULSE 88
== END 2021-06-08 10:42 | disposition home or self-care (01) ==
LOC: ORWHC2ENDO 08:21
PROVIDERS: ATTEND Surgery Plastic and Reconstructive Surgery
DX: K31.84 Gastroparesis (principal); K29.70 Gastritis, unspecified, without bleeding; K21.9 Gastro-esophageal reflux disease without esophagitis; K44.9 Diaphragmatic hernia without obstruction or gangrene; J44.9 Chronic obstructive pulmonary disease, unspecified; M79.7 Fibromyalgia; E07.9 Disorder of thyroid, unspecified; M19.90 Unspecified osteoarthritis, unspecified site; J45.909 Unspecified asthma, uncomplicated; Z87.891 Personal history of nicotine dependence
CPT/HCPCS: 43239; 88305; J2250; J2001; J3010; J2704

== ENCOUNTER 2021-06-20 08:43 | Day surgery (SDC) | payer OTHER, MEDICARE, BC ==
[2021-06-19 09:30] VITALS: BMI 21.2
[2021-06-20 09:04] VITALS: RESP 16; TEMP 97.4
[2021-06-20 09:05] LABS: Glucose,Whole Blood 108 mg/dL (75-99)
[2021-06-20] MEDS ORDERED: .fentaNYL (PF) 50 MCG/ML 2 ML AMP ONE (09:11)
[2021-06-20] MEDS ORDERED: IOPAMIDOL M200 10 ML VIAL ONE (09:11)
[2021-06-20] MEDS ORDERED: MIDAZOLAM 2 MG/2 ML VIAL ONE (09:11)
[2021-06-20] MEDS ORDERED: ROPIVACAINE 5MG/ML 20ML VIAL ONE (09:11)
[2021-06-20] MEDS ORDERED: TRIAMCINOLONE ACETONIDE 40 MG/ML 1 ML VIAL ONE (09:11)
--- NOTE | 2021-06-20 09:24 | P.PCN ---
Date of Procedure: 06/20/21 Surgeon: Gabriel Sanabria Pathology: none sent Condition: stable Disposition: PACU Description of Procedure: PREOPERATIVE DIAGNOSIS: 1-Lumbar radiculopathy 2- Lumber Degenerative Disc Diseases. POSTOPERATIVE DIAGNOSIS: 1-Lumbar radiculopathy. 2-Lumbar Degenerative Disc Diseases PROCEDURE 1. Lumbar epidural steroid injection under fluoroscopic guidance at the L5-S1 level in the left paramedian approach . 2. Lumbar epidurogram. ANESTHESIA: Local with 1% lidocaine; and IV moderate conscious sedation with Versed and fentanyl EBL: Minimal PROCEDURE INDICATION: The patient with low back pain and radiculitis symptoms unresponsive to conservative treatment. Fluoroscopy was used to optimize visualization of the needle placement and to maximize safety. PROCEDURE DESCRIPTION / TECHNIQUE: The patient was seen and identified in the preoperative area. Risks, benefits, complications including but not limited to infections ,bleeding ,allergic reaction to the medications ,nerve damage and not complete pain relief , and alternatives were discussed with the patient. The patient agreed to proceed with the procedure and signed the consent. IV was started, and vital signs were stable. Patient was taken to the OR and time out was completed. The patient was placed in the prone position on procedure table and a pillow was placed under the abdomen to reduce lumbar lordosis. The lumbosacral area was prepped and draped in the usual sterile fashion with ChloraPrep.Patient was closely monitored during the procedure. Conscious sedation was used during the procedure to decrease patients anxiety. Vital signs were monitered during the entire procedure. Using anterior-posterior fluoroscopy, the L5-S1 interlaminar space was identified and the skin over this site was marked and then infiltrated with 1% lidocaine subcutaneously. Subsequently, a 20-gauge Tuohy epidural needle was inserted and advanced toward the epidural space using the Loss of resistance to air technique and guided by AP and lateral fluoroscopy. The correct needle position in the epidural space was verified with the injection of 1 mL of the water soluble contrast dye Omnipaque 180 contrast and observing an excellent epidurogram with the epidural spread of the dye, after negative aspiration for blood and CSF and in the absence of paresthesias. Again after negative aspiration, a 7 ml mixture containing 40 mg of Kenalog and 4 ml of preservative free Normal Saline, and 2 ml of preservative free Bupivacaine 0.25% solution was injected and a washout of epidurogram was seen. Needle was withdrawn intact, skin was cleansed, and bandages were applied. patient tolerated procedure well and was transferred to PACU in stable condition.A copy of the needle placement picture was saved to the fluoroscopy machine. Of note the epidural space was found at about 5 cm depth from skin. COMPLICATIONS: None
[2021-06-20] MEDS ORDERED: IV FLUID CONTINUATION 1,000 ML IV ONE (09:27)
[2021-06-20 09:46] VITALS: BP 114/78; PULSE 84
--- NOTE | 2021-06-20 09:49 | FL ---
Fluoroscopy HISTORY: Pain 4 seconds fluoroscopy time supplied to the referring clinician. 2 intraoperative C-arm images docume nt the procedure. See dictated report from anesthesia.
== END 2021-06-20 10:00 ==
LOC: ORPAIN 08:43
PROVIDERS: ATTEND Anesthesiology
DX: M54.16 Radiculopathy, lumbar region (principal); M51.36 Other intervertebral disc degeneration, lumbar region
CPT/HCPCS: 62323; J2250; J3301; J3010; Q9966; J2795; 99152

== ENCOUNTER 2021-10-13 10:08 | Day surgery (SDC) | payer OTHER ==
[2021-10-12 09:15] VITALS: BMI 21.5
[2021-10-13 10:31] LABS: Glucose,Whole Blood 115 mg/dL (75-99)
[2021-10-13 10:32] VITALS: RESP 16; TEMP 98.1
[2021-10-13] MEDS ORDERED: LACTATED RINGERS 1,000 ML IV ONE (10:33)
[2021-10-13] MEDS ORDERED: ROPIVACAINE 5MG/ML 20ML VIAL ONE (10:50)
[2021-10-13] MEDS ORDERED: MIDAZOLAM 2 MG/2 ML VIAL ONE (10:50)
[2021-10-13] MEDS ORDERED: fentaNYL (PF) 50 MCG/ML 2 ML AMP ONE (10:50)
[2021-10-13] MEDS ORDERED: methylPREDNISolone ACETATE 40 MG/ML 1 ML VIAL ONE (10:50)
[2021-10-13] MEDS ORDERED: LIDOCAINE 1% (10MG/ML) FOR IV START INTRADERMA PRN (10:52)
[2021-10-13] MEDS ORDERED: LACTATED RINGERS 1,000 ML IV SCH (10:52)
--- NOTE | 2021-10-13 11:32 | P.PCN ---
Date of Procedure: 10/13/21 Procedure(s) Performed: PREOPERATIVE DIAGNOSIS: 1-Lumbar Spondylosis with Facet Arthropathy without myelopathy. POSTOPERATIVE DIAGNOSIS: 1- Lumbar Spondylosis with Facet Arthropathy without myelopathy. PROCEDURES : Bilateral Radiofrequency thermocoagulation, L3 , L4 , and L5 medial branch, with fluoroscopic guidance (fluoroscopy images available in the radiology department) ( to denervate the facet joint at bilateral L4-5 ,and L5-S1 levels ). ANESTHESIA: Monitored anesthesia care. EBL: Minimal PROCEDURE INDICATION: The patient with low back pain secondary to lumbar facet arthropathy who had more than 50% relief of her pain with previous diagnostic adwoa mbar medial branch block with bupivacaine. PROCEDURE DESCRIPTION / TECHNIQUE: The patient was seen and identified in the preoperative area. Risks, benefits, complications, including but not limited to risk of infection ,bleeding , allergic reactions to the medications and no complete pain releife , and alternatives were discussed with the patient, the patient agreed to proceed with the procedure and signed the consent. IV was started. Vital signs remained stable throughout the procedure. Patient was taken to the OR and time out was completed. The patient was placed in the prone position on the procedure table. The lumber area was prepped and draped in the usual sterile fashion. . Vital signs were closely monitored during the procedure .IV sedation was used during the procedure to decrease patients anxiety. Using AP and then oblique fluoroscopy, the ``eye of the Bairon dog corresponding to the connection between the superior and transverse articular processes of right L3, L4, and L5 were identified, marked, and localized with 1% lidocaine. Subsequently, a 18 -av radiofrequency cannula with a 10- mm active tip was advanced guided by fluoroscopy to each of the``eyes of the Bairon dog at right L3, L4, and L5. Each site then underwent sensory testing at 50 Hz and 0 to 1 volt and motor testing at 2.5 Hz and 0 to 3 volt with local stimulation, but no radicular symptoms down the legs. Thereafter each sites underwent radiofrequency thermocoagulation at 80 degrees celsius for 90 seconds after injecting 0.5 ml of PF Ropivacaine 1ml, then after the thermocoagulation done , 1 ml of the block solution containing Depo-Medrol 20 mg and 3 ml of Ropivacaine 0.5% was injected at the right L3 , L4 , and L5 , levels after negative aspiration of CSF and blood and with no paresthesias. Cannulas were retracted while injecting lidocaine 1% until the needle is out. The same procedure was repeated at the level of Left L3, L4, and L5 levels. At the end of the procedure, the skin was cleansed and bandages were applied. COMPLICATIONS: No acute complications. DISPOSITION / PLANS: The patient was placed in a supine position and transferred to the recovery area in a stable condition for observation and was discharged from the recovery room after meeting discharge criteria. Home discharge instructions given to the patient by the staff. The patient was reexamined prior to discharge. The patient will schedule a follow up in the clinic in 2-4 weeks. note= patient was referred from Dr. Rosen office (spine surgery ) for right-sided medial branch block and RFA of the right side,, today the patient's reporte that she had pain on both side ,but most of her pain on the right side, and we have done RFA of the medial branch lumbar area at L4 5 and L5-S1, was done last year, for this reason after discussion with the patient. We viewed, that, the best option is, to do bilateral medial branch RFA at L4 5 and L5-S1, and we get approval from the insurance to proceed with the procedure as mentioned above
[2021-10-13] MEDS ORDERED: IV FLUID CONTINUATION 1,000 ML IV ONE ×2 (11:33)
[2021-10-13 11:47] VITALS: BP 126/80; PULSE 82
--- NOTE | 2021-10-13 12:19 | FL ---
EXAMINATION TYPE: FL guided pain mgmt statistic DATE OF EXAM: 10/13/2021 CLINICAL HISTORY: Low back pain. TECHNIQUE: Fluoroscopy. COMPARISON: None. FINDINGS: Fluoroscopic guidance was provided during pain relief procedure performed by Dr. Marmolejo . A total of 39 seconds of fluoroscopic time was utilized during the procedure and 6 spot images are acquired. Images acquired shows needle localization at several levels in the lower lumbar spine. IMPRESSION: As Above.
== END 2021-10-13 12:03 | disposition home or self-care (01) ==
LOC: ORPAIN 10:08
PROVIDERS: ATTEND Specialist
DX: M47.816 Spondylosis without myelopathy or radiculopathy, lumbar region (principal)
CPT/HCPCS: 64635; 64636; J2250; J1030; J3010; J2795

== ENCOUNTER → 2021-11-01 | Outpatient (CLI) | payer OTHER ==
[2021-11-01 13:40] VITALS: BP 141/92; PULSE 74; RESP 18; TEMP 98.2
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
== END | disposition home or self-care (01) ==
LOC: PNWHC3 12:58
PROVIDERS: ATTEND Specialist
DX: M51.36 Other intervertebral disc degeneration, lumbar region (principal); M47.896 Other spondylosis, lumbar region; M46.96 Unspecified inflammatory spondylopathy, lumbar region
CPT/HCPCS: 99211

== ENCOUNTER → 2021-12-26 | Outpatient (CLI) | payer MEDICARE | END | disposition home or self-care (01) | LOC: LABPAT 07:33 | PROVIDERS: ATTEND Orthopaedic Surgery | DX: Z01.812 Encounter for preprocedural laboratory examination (principal); Z22.322 Carrier or suspected carrier of Methicillin resistant Staphylococcus aureus; M47.816 Spondylosis without myelopathy or radiculopathy, lumbar region | CPT/HCPCS: 87070 ==

== ENCOUNTER 2022-01-02 05:54 | Inpatient (IN) | payer MEDICARE ==
[2021-12-29 15:49] VITALS: BMI 22.8
[~2022-01-02 05:54] MED LIST changes: +ACETAMINOPHEN TAB 500 MG TAB PO PRN; +GABAPENTIN 300 MG CAP PO PRN; -LACTATED RINGERS 1,000 ML IV SCH; +ONDANSETRON 4 MG/2 ML VIAL IVP PRN; +TRANEXAMIC ACID IN NACL,ISO-OS 1,000 MG in SALINE 1 100ML.BAG IVPB PRN
[2022-01-02] MEDS ORDERED: LIDOCAINE 1% (10MG/ML) FOR IV START INTRADERMA PRN (06:08)
[2022-01-02] MEDS ORDERED: ONDANSETRON 4 MG/2 ML VIAL IVP ONE (06:08)
[2022-01-02] MEDS ORDERED: MIDAZOLAM 2 MG/2 ML VIAL IV PRN (06:08)
[2022-01-02] MEDS ORDERED: DEXAMETHASONE SOD PHOSPHATE 4 MG/ML 1 ML VIAL IV ONE (06:08)
[2022-01-02 06:56] LABS: Glucose,Whole Blood 109 mg/dL (70-110)
--- NOTE | 2022-01-02 06:56 | P.HPOR ---
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 10/26/14 12/29/21 History 7.5-325] Atorvastatin [Lipitor] 20 mg PO HS 05/31/21 12/29/21 History Citalopram Hydrobromide 20 mg PO DAILY 05/31/21 12/29/21 History [Citalopram HBr] methIMAzole [Tapazole] 2.5 mg PO DAILY 05/31/21 12/29/21 History Meloxicam 15 mg PO DAILY 10/12/21 12/29/21 History Severe Sinus Congestion Relief 2 tab PO TID PRN 12/29/21 12/29/21 History Allergies Allergy/AdvReac Type Severity Reaction Status Date / Time meperidine HCl [From Demerol] AdvReac Vomiting Verified 12/29/21 15:09 Physical Examination Osteopathic Statement: *. No significant issues noted on an osteopathic structural exam other than those noted in the History and Physical/Consult.
[2022-01-02] MEDS: LACTATED RINGERS 1,000 ML IV SCH (06:59)
[2022-01-02] MEDS ORDERED: NEOSTIGMINE 1 MG/ML 10 ML VIAL ONE (07:33)
[2022-01-02] MEDS ORDERED: PHENYLEPHRINE-0.9% NACL SYG 1,000 MCG/10 ML SYRINGE ONE (07:33)
[2022-01-02] MEDS ORDERED: GLYCOPYRROLATE 0.2 MG/ML 2 ML VIAL ONE (07:33)
[2022-01-02] MEDS ORDERED: SUCCINYLCHOLINE CHLORIDE 100 MG/5 ML SYR IV ONE (07:33)
[2022-01-02] MEDS ORDERED: ePHEDrine 50 MG/ML 1 ML VIAL ONE (07:33)
[2022-01-02] MEDS ORDERED: ROCURONIUM 10 MG/ML (5 ML VIAL) IV ONE (07:33)
[2022-01-02] MEDS ORDERED: MIDAZOLAM 2 MG/2 ML VIAL ONE (07:33)
[2022-01-02] MEDS ORDERED: PROPOFOL 10 MG/ML 20 ML VIAL IV ONE (07:33)
[2022-01-02] MEDS ORDERED: fentaNYL (PF) 50 MCG/ML 2 ML AMP ONE (07:33)
[2022-01-02] MEDS ORDERED: TRANEXAMIC ACID IN NACL,ISO-OS 1,000 MG/100 ML BAG ONE (07:33)
--- NOTE | 2022-01-02 07:40 | P.PN ---
Progress Note - Text Progress Note Date: 01/02/22 History and Physical UPDATE I have seen and examined the patient and reviewed the history and physical. There appear to be no significant changes in the patient's current medical status as outlined in the current History and Physical. She was somewhat upset in pre op over some other issues with the OR previously. I discussed with her that we can postpone if she would like but she states she would like to continue and wants it done today. We discussed the procedure again as well as answered all her questions. We discussed levels to be done to include L4-5 due to foraminal stenosis into the fusion or to just do L5-S1 and we discussed risks, benefits and potential outcomes of this and she understands and would like both done at this time which is reasonable. She is willing to proceed.
[2022-01-02] MEDS ORDERED: HEPARIN SODIUM 1,000 UN/ML (10ML VL) MISCELLANE ONE (08:26)
[2022-01-02] MEDS ORDERED: GELATIN SPONGE,ABSORB (LARGE) 1 EACH SPONGE MISCELLANE ONE (08:28)
[2022-01-02] MEDS ORDERED: THROMBIN (BOVINE) 5,000 UNIT VIAL MISCELLANE ONE (08:28)
[2022-01-02] MEDS ORDERED: VANCOMYCIN 1,000 MG VIAL MISCELLANE ONE (11:08)
[2022-01-02] MEDS ORDERED: LACTATED RINGERS 1,000 ML IV ONE ×2 (11:34)
--- NOTE | 2022-01-02 11:42 | XR ---
EXAM TYPE: LUMBAR SPINE X RAY SERIES COMPARISON: NONE HISTORY: Lumbar fusion TECHNIQUE: 7 views are submitted. FINDINGS: Intraoperative images demonstrate postsurgical changes with limited resolution. Exam is limited. IMPRESSION: 1. Postop change
--- NOTE | 2022-01-02 11:43 | FL ---
EXAMINATION TYPE: FL guidance operating room DATE OF EXAM: 01/02/2022 HISTORY: Fluoroscopy time 4 minutes and 50 seconds of fluoroscopy provided. IMPRESSION: 1. Fluoroscopy time.
[2022-01-02] MEDS ORDERED: SENNOSIDES-DOCUSATE SODIUM 1 EACH TAB PO PRN (11:52)
[2022-01-02] MEDS ORDERED: MAGNESIUM HYDROXIDE 2,400 MG/10 ML CUP PO PRN (11:52)
[2022-01-02] MEDS ORDERED: HYDROcodone/APAP 7.5-325MG 1 EACH TAB PO PRN (11:55)
[2022-01-02] MEDS: HYDROmorphone 0.5 MG/0.5 ML SYRINGE IVP PRN ×4 (12:06→14:49)
[2022-01-02] MEDS: ACETAMINOPHEN TAB 325 MG TAB PO SCH ×3 (15:41→23:42)
[2022-01-02] MEDS: GABAPENTIN 300 MG CAP PO SCH ×2 (16:40→21:24)
--- NOTE | 2022-01-02 18:21 | P.PN ---
Progress Note - Text Progress Note Date: 01/02/22 Brief Post Op: Surgeon: Jessika Pre op dx: L4-S1 spondylosis with stenosis Post op dx: Same Procedure: L4-S1 MITLIF Anesthesia: GETA EBL: 175 cc Fluids: 1100 UO: 250 Dispo: Stable to PACU Post op Plan: Post operative noncontrasted CT scan Encourage ambulation IS 10x/hr Teds/SCDs Pain control LSO ordered No brace needed for early ambulation Pt s/e. she is sleepy but doing well. She has some pain and is due for her pain medications. She states no perineal numbness/tingling. States no new weakness or sx in her legs at this time. States back is painful but controlled. Denies any f/c/sob/cp at this time. VSS at this time.
[2022-01-02] MEDS: FLUTICASONE 110 MCG INHALER INHALATION SCH (19:11)
[2022-01-02] MEDS: HYDROmorphone 1 MG/ML 1 ML SYRINGE IVP PRN (19:55)
[2022-01-02] MEDS: ATORVASTATIN 20 MG TAB PO SCH (19:56)
[2022-01-02] MEDS: PANTOPRAZOLE 40 MG TABLET PO SCH (19:56)
[2022-01-02 20:37] LABS: Glucose,Whole Blood 108 mg/dL (70-110)
[2022-01-03] MEDS: ONDANSETRON 4 MG/2 ML VIAL IVP PRN ×2 (00:20→07:53)
[2022-01-03] MEDS: HYDROmorphone 1 MG/ML 1 ML SYRINGE IVP PRN (00:20)
[2022-01-03] MEDS: LACTATED RINGERS 1,000 ML IV SCH (05:48)
[2022-01-03] MEDS: ACETAMINOPHEN TAB 325 MG TAB PO SCH ×3 (05:50→17:32)
[2022-01-03] MEDS: FLUTICASONE 110 MCG INHALER INHALATION SCH ×2 (07:52→20:03)
[2022-01-03] MEDS: HYDROmorphone 0.5 MG/0.5 ML SYRINGE IVP PRN ×3 (07:53→21:08)
[2022-01-03 09:08] LABS: Basophils # (A) 0.03 X 10*3/uL (0.00-0.10); Basophils % (A) 0.2 %; Eosinophils # (A) 0 X 10*3/uL (0.04-0.35); Eosinophils % (A) 0 %; HCT 35.3 % (37.2-46.3); HGB 10.6 g/dL (12.0-15.0); Immature Grans, Automated 0.6 %; Lymphocytes # (A) 0.98 X 10*3/uL (0.90-5.00); Lymphocytes % (A) 7.9 %; MCH 26.7 pg (27.0-32.0); MCV 88.9 fL (80.0-97.0); Mean Platelet Volume 12.2 fL (9.5-12.2); Monocytes # (A) 1.02 X 10*3/uL (0.20-1.00); Monocytes % (A) 8.2 %; NRBC Per 100 WBC 0 /100 WBCS (0.0-0.0); Neutrophils # (A) 10.36 X 10*3/uL (1.80-7.70); Neutrophils % (A) 83.1 %; Platelet Count 185 X 10*3/uL (140-440); RBC 3.97 X 10*6/uL (4.10-5.20); WBC 12.46 X 10*3/uL (4.50-10.00)
--- NOTE | 2022-01-03 09:11 | P.OP ---
Date of Procedure: 01/02/22 Preoperative Diagnosis: 1. L4-S1 spondylosis with stenosis 2. LE radiculopathy 3. LE weakness 4. Mechanical low back pain Postoperative Diagnosis: 1. L4-S1 spondylosis with stenosis 2. LE radiculopathy 3. LE weakness 4. Mechanical low back pain Procedure(s) Performed: 1. Posterior paraspinal WI approach to lumbar spine 2. Posteriolateral and interbody fusion L4-5 (62894) 3. Posteriolateral and interbody fusion L5-S1 (33584) 4. Insertion of biomechanical device ([id number]) 5. Segmental instrumentation L4-S1 (74410) 6. Posterior extradual laminectomy and foraminotomy for decompression of neural elements with [id number] contralateral decompressive foraminotomies L4-5 and L5-S1 (20689, 69934) 7. Use of intraoperative microscope for decompression and interbody fusion (74858) 8. Use of intraoperative neuromonitoring 9. Interpretation of intraoperative flouroscopcy <1 hr(96851) 10. Needle localization of operative levels using flouroscopic guidance (02567) Implants: -Star everest XT screw and gilles system -Globus Rise cage 8 deg 8-13 mm L4-5; Globus sable cage 6-12 mm 8 deg L5-S1 -Local autograft -Allograft -Bio4 Anesthesia: GETA Surgeon: Matt Rosen Dairy Worker #1: Yuriy Williamson (Was present and assisted in all aspects of the case from positiong to closure and dressing placement) Estimated Blood Loss (ml): 175 IV fluids (ml): 1,100 Urine output (ml): 250 Pathology: none sent Condition: stable Disposition: PACU Indications for Procedure: Ms. Mccollum is presenting for evaluation of low back pain and bilateral lower ext remity radiculopathy. It was my pleasure to have seen and examined Ms. Mccollum. In our visit today we have had a chance to go over subjective complaints, physical examination findings and treatments including the natural course history without intervention and various interventional options. The patients imaging demonstrates: XRay taken on 03/20/21 of Lumbar, Pelvis was reviewed by Dr. Alfonso and indicates: L4 to S1 spondylosis is noted with disc degeneration disc height loss at L4 5 and L5-S1.there is hypermobility of L4 on L5 through flexion and extension and extension there is retrolisthesis and in flexion there is minor anterior listhesis with angular change of 20. there is no large changes in L5- S1 severe disc desiccation along with facet arthrosis noted. Overall alignment at L5-S1 is flat and somewhat kyphotic the lordosis angle changes fairly significantly at L4-L5 due to the hypermobility and in flexion goes and the kyphosis. There is no fracture or dislocation noted otherwise coronal balance is maintained.lumbar lordosis is 33 with a pelvic incidence of 69 giving her a slightly high PI:LL mismatch. AP pelvis demonstrates congruent level pelvis no fracture dislocation MRI scan from 04/11/2021 of Lumbar Spine: he does demonstrate severe spondylosis L4 5 and L5-S1. There is disc desiccation at both of these levels a severe disc height loss at L5-S1. There are type III Modic endplate changes L5- S1. There are broad-based disc bulges at both of these levels causing bilateral foraminal stenosis. There is trace anterior listhesis of L4 and L5 which is noted.there is flattening of the normal lumbar lordosis secondary to segmental kyphosis L5-S1. There is moderate to severe stenosis centrally as well as foraminally L5-S1. No other lesion fracture dislocation is noted time. On physical exam, Ms. Mccollum demonstrates severely restricted lubmar ROM with bilateral lower extremity radiculopathy and weakness with plantar and dorsiflexion. Patient does also demonstrate RLE L4-L5 dermatomal deficits as well as LLE L5 dermatomal deficits. I have explained to the patient that as their condition progresses it will cause further neurological deficits and eventual paralysis. Based on the patients imaging, physical exam, and the rapid progression and disabling nature of their symptoms, at this time I recommend surgery in the form or a: L4-S1 MISTLIF (58119, 19802, 31381x0, 93721, 66953o5). I discussed the risk and benefits of this procedure at length with Ms. Mccollum. The patient agreed to considered pursuing the procedure abovementioned. Prior to surgery, she should follow up with her PCP (Cardio, ID, IM etc) for clearance. Questions were invited and answered, and the patient wishes to proceed as outlined below. Currently, I am recommendin.L4-S1 MISTLIF Description of Procedure: The patient was seen and examined in the preoperative area. All preoperative protocols were followed. Informed consent was obtained risks and benefits of the procedure were discussed at length. Risks including bleeding infection damage to the surrounding tissue and risk of reoperation were discussed with the patient. Risk of anesthesia up to and including was a discussed with the patient. These are outlined in the risk review. They were willing to accept these risks and all of the risks of surgery. The patient was given a weight- based dose of antibiotics in the form of 2 g Ancef. The patient was seen and evaluated by the anesthesia team who deemed them fit for surgery. The site was marked, the patient was willing to proceed with the procedure. The patient was transferred to the operative suite by the Department of anesthesia. They were then drifted off to sleep by the department anesthesia and GETA was performed. The patient tolerated this well. [Kate catheter was placed by nursing staff, atraumatically]. Once confirmation of lines and ventilation the patient was transferred to a [prone Alonso table very carefully]. All bony prominences including wrists, elbows, axilla, chest, hips, and thighs, and feet were padded very well. Special attention was paid to the genitalia and these were padded accordingly. SCDs were placed on bilateral lower extremities and were connected. Arms were well padded and placed [on arm boards up and out in the 90/90 position]. Once in position, again we confirmed good ventilation capabilities and that lines were running appropriately. The patient's lumbar spine was then exposed. 1010s were placed outlining the incision site. Standard alcohol was used to clean the incision site and allowed to dry. C-arm was used to biomark the patient, we performed needle localization under fluoroscopic guidance of L5-S1 and confirm level for incision which was marked with a skin marker. Operative briefing was performed with all teams and everyone in agreement to proceed. The patient was then prepped and draped in a normal sterile fashion. Timeout was then performed and all parties were in agreement with the procedure to be performed. The patient in position we started by targeting pedicles on the right-hand side using fluoroscopic guidance. Jamshidi was used to target pedicles of L4-L5 and S1. On AP we obtained perfect views of the pedicles advanced the Jamshidi prison through the pedicle and flipped to the lateral to confirm at the back of the body once confirmed at the back of body branch of the body. We then aspirated BM from this area for use in our interbody graft. Once we confirmed good position and then placed a wire perfect scope was placed over the wire followed by a measuring device measured for screw. 12/10/1942 screw was then selected and placed over the wire and lateral fluoroscopic guidance. Once this was accomplished repeated this at L5 and S1 on the right-hand side. We did a spirate from L5 as well BMA for the interbody graft mixture. Once this was accomplished we then turned our attention to the placement of cages as well as decompression. We used fluoroscopic guidance to target the facet joints at L5- S1 on the left-hand side skin incision was made and a dilator set was used to dilate down to a desirable to length and width the tube was then placed and confirmed to be in good position under AP and lateral imaging to be in line with the L5-S1 disc space as well as in adequate position for decompression. Once tube position was confirmed dilators were removed and the tube was locked into position. We then brought in the operating microscope the mid myomectomy was performed. We then used osteotomes to perform facetectomy of the inferior articular process of L5 in a L-shaped cut inverted followed by a transverse cut in the S1 superior articular process this opened up the foramen on this side pedicle to pedicle was then used a high-speed bur to widen this decompression and perform extradural laminotomy laminectomy in this area for decompressive purposes. We then extended this over the top remove ligamentum flavum with Kerrison rongeurs to ensure that a good central decompression had been performed. Once this was accomplished we identified the nerve root and protected it was extremely collapsed in this area and so we did have to mobilize the nerve root using a Dix 4 very carefully once it was mobilized we did perform meticulous hemostasis in this area nerve root retractor was placed and allowed for retraction of the nerve root as well as the dura. We identified the disc space and osteotome was used to enter the disc space under lateral fluoroscopic guidance. Once we did enter the disc space sequential shaving was performed until the desired height was obtained and good bleeding endplates were seen. Then used down-biting curet to extend this medially in order to ensure that we could get our cage medially. We then placed a blunt distractor in order to visualize this area the blunt distractor was placed and an AP image confirmed to be centrally located. We then sized and selected a stable cage once his was selected we first packed the disc space anteriorly with autograft allograft and Stacy. This was then impacted into place with a blunt trial cleared. We then protecting neural elements impacted the cage into place under lateral fluoroscopic guidance once it was in good position we expanded the cage carefully taking images throughout and once desired height and lordosis have been obtained and the cage was stable we stopped. Cages then back filled with DBM. Inserted was removed and the cage was checked and it was stable. We then perform meticulous hemostasis of the area and irrigated the area thoroughly. Further decompression was completed over the top for contralateral foraminotomies. This is done using Kerrison rongeurs. We then turned our attention to the L4 5 disc space we were able to wand are tube cranially in order to see the L4-L5 facet joints. These were identified and limited myomectomy performed. We then Performed complete facetectomy and foraminotomies at L4-L5 using osteotome and high-speed bur. I AP of L4 was removed along with the SAP of L5. This allowed for pedicle to pedicle decompression in this area within widen this laminectomy with high-speed bur and Kerrison rongeurs ligament of flavum was then removed using Kerrison rongeurs and [id number] decompression was performed from contralateral foraminotomies. Extradural laminectomy was performed as well to ensure good decompression between L4 and L5 as well. We then identified the disc space and protected the exiting nerve root as well as the traversing nerve root with a nerve root retractor and a Dix 4. The disc space was then entered with a osteotome under lateral fluoroscopic guidance. We then performed sequential shaving in this area of the removal of disc with pituitary. We then used down-biting curet to ensure that we are across midline and perform complete discectomy. We then ensured good bleeding endplates and using their claws to remove any further cartilage. This space was then copiously irrigated. We then placed a blunt distractor and checking AP image was confirm that we were centrally located. We then sized and selected a globus rise cage and while protecting neural elements placed bone graft anterior to this cage autograft and allograft as well as Stacy. This is impacted into place with a blunt trial. We then protecting neural elements impacted the cage into position the cages then expanded under lateral fluoroscopic guidance until it had good fit and good height. Then tested the cage and was stable. The operations administrator was removed. We perform meticulous hemostasis in the area and neural elements were intact. Then copiously irrigated with normal sterile saline perform meticulous hemostasis. We then wanted the tube out laterally to visualize the transverse processes of L4-L5 and the sacral canal at S1 which were decorticated using a high-speed bur. We then placed allograft autograft and Stacy in the posterior lateral gutters on the side. The tube was then removed and we proceeded with targeting pedicles on the left-hand side similarly to before pedicles were targeted at L4-L5 and S1 and screws placed over wires and severe in good position. We then tested all screws and all screws tested above 20 mA. We then turned our attention to the opposite side where we decorticated the posterior lateral gutters and placed bone graft posterior lateral. We then sized rods and placed these rods subfascially through the tulip heads. Once they were confirmed to be through 2 pads the set screws were placed and reduced into position we then final tightened setscrews and confirm the rods to be in good position and in each tulip head. We then final tightened the set screws Were then broken and confirmed to be complete. We then took final images in the AP and lateral which confirmed good hardware placement as well as good height episcopal lordosis. Copiously irrigated the wounds with normal sterile saline. Vancomycin was placed deep within the wound. We then closed the fascial layer with 0 Vicryl the deep subcu tissue with 0 Vicryl the superficial subcu tissue with 2-0 Vicryl and the skin with skin reinaldo. The wound edges approximated very well. The wound was then cleaned and dressed sterilely with operative foam dressings. The patient was transferred back to their hospital bed atraumatically. Patient was then awakened and extubated by the department of anesthesia having tolerated the procedure very well with no complications. They were transferred to the postoperative care unit in stable condition.
[2022-01-03 09:20] LABS: African American GFR (CKD) 90.3 (60.0-200.0); Anion Gap 13.8 mmol/L (10.00-18.00); BUN/Creat Ratio 11.63 Ratio (12.00-20.00); Blood Urea Nitrogen 9.3 mg/dL (9.0-27.0); Calcium 8.9 mg/dL (8.7-10.3); Carbon Dioxide 24.2 mmol/L (20.0-27.5); Non-African American GFR(CKD) 77.9 (60.0-200.0); Potassium 4.1 mmol/L (3.5-5.5)
[2022-01-03] MEDS: DEXAMETHASONE SOD PHOSPHATE 10 MG/ML 1 ML VIAL IVP SCH (09:43)
[2022-01-03] MEDS: CITALOPRAM HYDROBROMIDE 20 MG TAB PO SCH (09:44)
[2022-01-03] MEDS: GABAPENTIN 300 MG CAP PO SCH ×3 (09:44→21:04)
[2022-01-03] MEDS: methIMAzole 5 MG TAB PO SCH (09:44)
[2022-01-03] MEDS: PANTOPRAZOLE 40 MG TABLET PO SCH ×2 (09:44→21:04)
--- NOTE | 2022-01-03 14:37 | P.PN ---
Progress Note - Text Progress Note Date: 01/03/22 [facility] Progress Note DOS: 01/02/2022 POD:1 SUBJECTIVE: Patient seen and examined she is doing okay she was having some nausea and vomiting overnight which has somewhat subsided now. She states some discomfort in her back which is otherwise doing well. She is somewhat lachrymose in her room today. She denies any fevers chills shortness of breath or chest pain she has been up and about she so the [place] in and I will be DC'd today. She denies any other changes no numbness or tingling in her legs no increase in symptoms. OBJECTIVE: Vital signs stable General: AOX3, NAD Incision CDI Dressing is clean and dry Motor Exam: RUE: 5/5 SA, EF, EE, WF, WE, Intrinsic, Commercial Hvac Technician LUE: 5/5 SA, EF, EE, WF, WE, Intrinsic, Commercial Hvac Technician RLE: 5/5 HF, KE, KF, DF, PF, EHL, FHL LLE: 5/5 HF, KE, KF, DF, PF, EHL, FH Reflexes: 2/4 in UE and LE b/l SILT C5-T1 and L2-S1 Dermatomal deficit: [] +distal pulses palpable Negative hoffmans b/l Negative babinski b/l No clonus ASSESSMENT: 66-year-old female postop day 1 L4 to S1 MITLIF with decompression PLAN: -Appreciate alliances consultant and team management. -Activity: Ambulate QID, OOB all meals, up and about, limit lifting bending twisting to less than 5 lbs. Use walker or cane if needed for stability. -Daily PT/OT, increase ambulation strength and balance. -[Brace when up and about, not needed in bed or chair] -Pain control: [Adequate at this time] -Meds: [reviewed] -GI ppx: senna, Miralax -DC ramsey when up and about, bedside commode if needed -DVT PPX: [OK to restart Heparin tonight] -Hygiene: Shower today. Maintain dressing clean and dry. Meticulous cleaning after BMs away from incision site -Drains: [Maintain for now. Record output] -Encourage IS 10x/hr -Dispo: She will likely be here for 1-2 more days due to pain control vomiting delay in ambulation and physical therapy needs
--- NOTE | 2022-01-03 14:47 | P.PN ---
Subjective Progress Note Date: 01/03/22 Principal diagnosis: L4-S1 spondylosis with stenosis Patient was seen at bedside this morning lying semirecumbent position. Patient currently states she is very nauseous and feels like she needs to vomit. Patient says she is still having a moderate amount of pain in the low back. Patient says she did get up with physical therapy using walker and did okay, however, patient says she did begin to feel nauseous when she was up with therapy. Patient denies chest pain, fever, shortness of breath, change in vision, loss of bowel/bladder control. Objective - Vital Signs Vital signs: Vital Signs Temp 98.8 F 01/03/22 05:00 Pulse 89 01/03/22 05:00 Resp 16 01/03/22 05:00 BP 103/67 01/03/22 05:00 Pulse Ox 99 01/03/22 05:00 FiO2 Intake & Output 01/02/22 01/03/22 01/03/22 18:59 06:59 18:59 Intake Total 2390 240 Output Total 725 500 Balance 1665 -260 Intake: IV 2350 Intake, IV Titration 40 240 Amount Lactated Ringers 1,000 ml 40 240 @ 20 mls/hr IV .Q24H [facility] Rx#:[id number] Output: Urine 550 500 Estimated Blood Loss 175 Other: Voiding Method Indwelling Catheter Indwelling Catheter - Exam Dressing is in place at this time on spine. Sensation is equal, symmetric, and intact throughout the upper and lower extremities. Moderate TTP diffusely throughout lumbar spine near incisions. Patient has full range of motion bilateral upper and lower extremities. 4+/5 in all major motor groups in upper and lower extremities. Neurovascular status is intact bilaterally. Cap refill under 3 seconds in digits upper extremities. Radial pulses intact, 2+ bilaterally. DP pulses palpable bilaterally. Negative Homans bilaterally - Labs CBC & Chem 7: 01/03/22 05:34 01/03/22 05:34 Assessment and Plan Assessment: 1. L4-S1 spondylosis with stenosis - Postop day 1 status post L4-S1 MITLIF Plan: 1. L4-S1 spondylosis with stenosis - surgery performed yesterday, 12/25/2021 - L4-S1 MITLIF. Patient stable at bedside this morning. Patient is a bit nauseous. Zofran as needed. Patient is to continue with therapy and pain medication at this time. Plan for discharge home with health services within the next 1-2 days. 2. Appreciate medical management 3. Pain management 4. DVT prophylaxis - mechanical 5. GI prophylaxis - Protonix; senna 6. PT/OT - WBAT w/walker 7. Encourage incentive spirometer use 8. Discharge planning - Plan for discharge home with health services within the next 1-2 days. Time with Patient: Less than 30
[2022-01-03] MEDS: HYDROcodone/APAP 10-325MG 1 EACH TAB PO PRN ×2 (17:10→23:13)
--- NOTE | 2022-01-03 17:19 | PN ---
PROGRESS NOTE 66-year-old female, status post lumbar laminectomy. She is more having incisional pain. She is at 96 on 2 L, pulse 85, respiratory 16 to 18, cardiovascular S1, S2. Lungs clear. Hematology negative Homans. Hemoglobin 10.6, white count 12.4. Electrolytes are also normal. Plan is to continue current home medications. She appears to be stabilizing post surgery. Her legs feel better. She has some nausea, vomiting overnight, subsided. We will give her some Zofran. No fever, chills. Back is bandaged. Otherwise cardiovascular S1, S2. Lungs clear. GI soft. Psych fair mood and affect. Plan is to continue ambulation. Home medications have been restarted, limit lifting and bending. Possible discharge home in 1 or 2 days. Pain control. MMODL / IJN: [id number] /
--- NOTE | 2022-01-03 17:40 | PN ---
PROGRESS NOTE 66-year-old female, status post lumbar laminectomy. She is having nausea and vomiting a little bit and may need pain control. She is going to get up moving and she will be discharged home in the next 24 to 48 hours pending Orthopedic Spine recommendations. Cardiovascular S1-S2. Lungs clear. GI soft. She is status post L4-L5, L4-S1 MITLIF with decompression. Ambulate, recommend bending and twisting. DVT prophylaxis repeat. Continue on heparin to discharge. We are going to shower her. She will be here due to nausea vomiting until that clears up and home soon. MMODL / IJN: [id number] /
--- NOTE | 2022-01-03 17:55 | CT ---
EXAMINATION TYPE: CT lumbar spine wo con DATE OF EXAM: 01/03/2022 COMPARISON: 11/23/2020 HISTORY: post op lumbar sx CT DLP: 550.20 mGycm CONTRAST: Study is performed post surgery. No contrast was utilized. TECHNIQUE: CT of the lumbar spine is performed on a spiral scan at 3 mm thick sections. Reconstructed images are performed in the coronal and sagittal planes. FINDINGS: Vertebral body alignment is preserved. Disc spacers have been placed in the mid L4-5 level and L5-S1 anteriorly. Postsurgical soft tissue changes are present. Vertebral body heights are preser sahara. There is posterior disc space narrowing L5-S1 and possibly L3-4. L5-S1 level is nondiagnostic due to significant beam hardening artifact. Limited L4-5 disc space can be evaluated. Previous disc bulge is not clearly evident although this is limited in visualization. IMPRESSION: Postsurgical changes L4-S1. No obvious residual stenosis is evident. The L4-5 and L5-S1 levels are ve ry limited due to beam hardening artifact.
[2022-01-03] MEDS: ATORVASTATIN 20 MG TAB PO SCH (21:04)
[2022-01-03] MEDS: CYCLOBENZAPRINE 5 MG TAB PO PRN (21:04)
[2022-01-04] MEDS: ACETAMINOPHEN TAB 325 MG TAB PO SCH ×5 (00:07→23:59)
[2022-01-04] MEDS: CYCLOBENZAPRINE 5 MG TAB PO PRN ×2 (05:30→21:32)
[2022-01-04] MEDS: HYDROcodone/APAP 10-325MG 1 EACH TAB PO PRN ×3 (05:30→19:06)
[2022-01-04] MEDS: LACTATED RINGERS 1,000 ML IV SCH (05:31)
[2022-01-04] MEDS: FLUTICASONE 110 MCG INHALER INHALATION SCH ×2 (07:17→19:13)
[2022-01-04] MEDS: DEXAMETHASONE SOD PHOSPHATE 10 MG/ML 1 ML VIAL IVP SCH (09:23)
[2022-01-04] MEDS: GABAPENTIN 300 MG CAP PO SCH ×3 (09:23→21:32)
[2022-01-04] MEDS: methIMAzole 5 MG TAB PO SCH (09:23)
[2022-01-04] MEDS: PANTOPRAZOLE 40 MG TABLET PO SCH ×2 (09:23→20:07)
[2022-01-04] MEDS: CITALOPRAM HYDROBROMIDE 20 MG TAB PO SCH (09:23)
--- NOTE | 2022-01-04 13:15 | P.PN ---
Subjective Progress Note Date: 01/04/22 Principal diagnosis: Status post L4-S1 minimally invasive transforaminal lumbar interbody fusion Patient was evaluated today at bedside, she is resting in her hospital bed. She is doing a lot better today than yesterday. Her pain is better controlled. Urinary catheter was removed early this morning, she is voiding with no difficulties. She is passing gas, she denies a bowel movement at this time. She denies any numbness or tingling in the bilateral lower extremities, she denies any numbness and tingling involving the genital or perineal region. She denies any headaches, Lantus, shortness pain or shortness of breath Objective - Vital Signs Vital signs: Vital Signs Temp 98.9 F 01/04/22 05:00 Pulse 91 01/04/22 05:00 Resp 16 01/04/22 05:00 BP 111/73 01/04/22 05:00 Pulse Ox 92 L 01/04/22 05:00 FiO2 Intake & Output 01/03/22 01/04/22 01/04/22 18:59 06:59 18:59 Intake Total 470 790 Output Total 700 1400 Balance -230 -610 Intake: Intake, IV Titration 50 290 Amount Lactated Ringers 1,000 ml 240 @ 20 mls/hr IV .Q24H ANDI Rx#:[id number] ceFAZolin 2 gm In Sodium 50 50 Chloride 0.9% 50 ml @ 100 mls/hr IVPB Q8HR ANDI Rx# :[id number] Oral 420 500 Output: Urine 700 1400 Other: Voiding Method Indwelling Catheter Indwelling Catheter Indwelling Catheter # Voids 2 - Exam Gen: AOx3, NAD VSS stable at this time Integument: Postoperative bandages are in good position and condition Palpation: Mild tenderness with palpation to the lower lumbar spine ROM: Full range of motion in all major muscle groups of the bilateral upper and lower extremity Sensory Exam: Senory exam to light touch is intact C5-T1 Senosry exam to light touch is intact L2-S1 Motor: 55 strength in bilateral upper extremities with shoulder elevation, shoulder abduction, wrist extension, wrist flexion, elbow flexion, elbow extension, 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 Plan for discharge home on [place]. Patient will also likely utilize Flexeril and gabapentin at discharge DVT prophylaxis, heparin while inpatient, utilize compression stockings at discharge Wound care, new foam dressing will be applied prior to discharge Activity level restrictions were discussed with patient, this including no lifting, bending or twisting Prescription for an LSO brace was placed, patient will utilize this during her postoperative period' Medical recommendations Continue work with PT/OT while inpatient, utilize walker Discharge planning: Plan for discharge on 01/05/2022 Time with Patient: Less than 30
[2022-01-04] MEDS: ATORVASTATIN 20 MG TAB PO SCH (20:07)
--- NOTE | 2022-01-04 20:22 | PN ---
PROGRESS NOTE This 66-year-old white female had lumbar spine CT done today which showed postsurgical changes, L4 to S1. No residual stenosis at the surgical level. She is being kept one more day to control nausea and vomiting and increase her ambulation, status post L4-S1 minimally invasive transforaminal lumbar interbody fusion. Pain is much better controlled. Kate was removed. Numbness and tingling is better. Breathing is good. Vital signs are good. She is saturating 92% on room air. Blood pressure 111/73, respiratory rate 12 to 16, temperature 98.9. Cardiovascular S1, S2. Lungs clear. GI soft. Hematology negative Homans. Strength in the muscle is 5/5 upper extremity reflexes. ASSESSMENT: Postoperative day 2. Gabapentin, Flexeril, [place] on discharge. Medically she is stable. LSO brace has been given. Possible discharge home soon. MMODL / IJN: [id number] /
[2022-01-05] MEDS: HYDROcodone/APAP 10-325MG 1 EACH TAB PO PRN ×3 (00:58→14:10)
[2022-01-05] MEDS: LACTATED RINGERS 1,000 ML IV SCH (04:30)
[2022-01-05] MEDS: ACETAMINOPHEN TAB 325 MG TAB PO SCH ×2 (05:38→12:43)
[2022-01-05] MEDS: CITALOPRAM HYDROBROMIDE 20 MG TAB PO SCH (07:52)
[2022-01-05] MEDS: PANTOPRAZOLE 40 MG TABLET PO SCH (07:52)
[2022-01-05] MEDS: CYCLOBENZAPRINE 5 MG TAB PO PRN (07:52)
[2022-01-05] MEDS: GABAPENTIN 300 MG CAP PO SCH (07:52)
[2022-01-05] MEDS: DEXAMETHASONE SOD PHOSPHATE 10 MG/ML 1 ML VIAL IVP SCH (07:53)
[2022-01-05] MEDS: methIMAzole 5 MG TAB PO SCH (08:00)
[2022-01-05] MEDS: FLUTICASONE 110 MCG INHALER INHALATION SCH (08:05)
--- NOTE | 2022-01-05 12:51 | P.DS ---
Providers Date of admission: 01/02/22 05:54 Expected date of discharge: 01/05/22 Attending physician: Matt Rosen DO Consults: 01/02/22 11:54 Consult Physician Routine Consulting Provider: Tyrone Guo Reason/Comments: medical management Do you want consulting provider notified?: Yes Primary care physician: Tyrone Guo [facility] Course: Date of admission: 01/02/2022 Date of discharge: 01/05/2022 Admission diagnosis: L4-S1 stenosis and spondylosis Discharge diagnosis: Same Attending physician: Dr. Rosen Surgical procedures: L4-S1 MITLIF and decompression Brief history: Patient is a 66-year-old female with a history of L4-S1 spondylosis and stenosis. At this point patient has failed conservative treatment measures and has opted to proceed with a elective L4-S1 MITLIF and decompression. Hospital course: Details of patient's surgery can be found in operative report. Patient tolerated the procedure well and was subsequently transported to orthopedic floor. Patient's orthopeidc and medical care was provided daily. Patient had daily laboratory tests performed for evaluation of overall blood counts. Patient had daily physical therapy to include strengthening range of motion as well as education with walker ambulation. Patient was noted to have a relatively uneventful postoperative course. Patient reported satisfactory pain control with oral pain medications by postoperative day 3. Patient showed satisfactory progress with physical therapy. Patient moved steadily through the program and had no difficulty meeting the goals by postoperative day 3. Given patient's otherwise satisfactory course and having met physical therapy goals, plan is to discharge patient home with health services on postoperative day 3. Discharge condition/disposition: Patient will be discharged home with health services in stable condition. Discharge medications: Instructions are given on resumption of patient's normal daily medications per primary care recommendation, in addition patient will be prescribed Roseland 10 mg/325 mg; gabapentin 300 mg; Flexeril 5 mg; Duricef; senna. Spine Discharge and Recovery Instructions Date of Surgery: 01/02/2022 Diagnosis: L4-S1 spondylosis and stenosis Procedure: L4-S1 MITLIF and decompression Medications: See medication list All medication refills should be obtained through your primary care doctor or your clinic spine surgeon. Please discuss prescription refills at your follow up appointment. Do not call the hospital for medication refills. Dressing: Leave your dressing in place for a total of 5 days post operatively. Then you may remove your dressing and leave open to air. Keep the area clean and if not able to keep area clean, then cover with sterile gauze and tape. Showering: You may shower 3 days after your procedure allowing soap and water to run over incision. Do not scrub. Do not soak. Blot dry. Follow up: Please confirm a follow up appointment with your surgeon 3 weeks post operatively. Please make an appointment to follow up with your PCP in 1-2 weeks after surgery for evaluation 3 phase, 3-week plan POST OP WEEKS 1-3 1. Lifting/carrying/pushing/pulling limited to less than 5 pounds. 2. Do not sit for longer than 15 minutes at one time. Get up and walk around. Prolonged sitting is NOT advised. If you lay down, see if you can tolerate laying down on you front (belly side) 3. Walk for periods of 15 minutes = 1 mile but no longer; do it multiple times times each day. 4. Ice your low back after activity. POST OP WEEKS 3-6 1. Lifting limited to less than 20 pounds. 2. Do not sit for longer than 30 minutes at a time. Frequently change positions. Use a sit-to stand workstation or take frequent breaks from sitting if you have returned to work. 3. Walk for 30 minutes each day. If possible, do these three or more times a day POST OP WEEKS 6+ At your 6-week appointment we will give you a physical therapy referral to focus on a core stabilization and strengthening program. You should also work on leg & buttock strengthening, hamstring & quadriceps stretching, and continue a low impact aerobic activity program such as swimming, walking, or riding a stationary bicycle. During the initial 6 weeks after your surgery, you are at the highest risk of re-injuring your spine. You should generally avoid BLTs (bending, lifting and twisting combination motions) and follow the above guidelines to reduce the chance of reinjury. You can anticipate post op appointments in our office at approximately 3 weeks and 6 weeks after your surgery. INCISION CARE: If your incision is not draining you do NOT need to cover it with a dressing. Keep your incision clean, dry and intact. In most cases, we apply skin glue, reinaldo or sutures to the incision at the time of surgery. This will be like a crust or have the appearance of a scab and will fall off in time on its own. The stitches or reinaldo need to be removed at 3 weeks post op appointment. You may begin to shower 3 days after surgery (this allows the glue to cano well). However, please avoid scrubbing the incision site or peeling off any of the skin glue. This will ensure optimal healing of your incision. Also, during this time avoid soaking the incision area in water - this includes swimming pools, hot tubs or baths. No ointments, lotions or oils on the incision until your surgeon allows. Leave reinaldo, sutures or glue in place. Neurological dysfunction that comes on suddenly can also be a sign of a stroke. Below some common symptoms of a stroke are listed: B - balance difficulty such as sudden onset walking or leaning to one side - NEW E - eye problem such as sudden double vision or trouble seeing on one side - NEW F - Facial weakness or numbness on one side - NEW A - Arm or leg weakness or numbness on one side - NEW S - Slurred speech or difficulty with word finding - NEW T - Time is BRAIN! Call 911 as soon as you recognize these symptoms Diet: Consume a regular diet rich in vegetables and lean protein such as chicken or fish. You should consume in a ratio of approximately 20% fats|40% carbohydrates|40%protein. Vegetables, sweet potatoes, brown rice or quinoa are examples of good carbohydrates. Chips, white bread, cookies and sweets/sugar are examples of bad carbohydrates. Limit your bad carbs, go wild with good carbs. "Life's Simple 7" Guidelines as per [place] [employer] These will help you reclaim your life after surgery and form builder helper in your recovery, keeping in mind your restrictions. (1) Get Active. Physical activity can help people lose weight, control high blood pressure and cholesterol, feel emotionally better, and sleep better. (2) Control Cholesterol. Avoid a diet high in saturated fat, trans fat, & cholesterol. Limit whole milk & cream, ice cream, butter, egg yolks, processed meats (like sausage and hot dogs), and fatty meats. Choose healthy foods that are low in saturated fat, trans fat and cholesterol which include: Fruits and vegetables, fiber rich grain products (like whole grain pasta and brown rice), lean meat such as chicken, fish, nuts, seeds, and legumes. (3) Eat Better. Eat small portions. Shop at the grocery with a list and do not stray from it. Tips for a healthy diet include: Limit sodium intake to less than 1500mg daily, avoid prepackaged, processed, and fast foods, choose a diet rich in fruits, vegetables, and whole grain, high fiber foods, and limit saturated & cholesterol in your diet. (4) Manage Blood Pressure. If you have high blood pressure, you should have a cuff at home so that you can check your blood pressure regularly. Be sure you have a good cuff. An arm one is generally better than a wrist one. Bring the cuff to a doctor's appointment to validate that the measurements that your cuff are taking are accurate. Take your blood pressure twice daily when you are sitting down and relaxing. Record the numbers in a log and bring this log with you to your doctors' appointments. (5) Lose Weight if your BMI is above 25. A healthy BMI is between 19-25. To calculate Your BMI, you may use a Standard BMI Calculator on the NIH BMI website: <www.nhlbi.nih.gov/guidelines/obesity/BMI/bmicalc.htm>. Weigh oneself daily. If you are overweight, set a goal to lose weight. A pound a week loss if needed is a good target. (6) Reduce Blood Sugar. Limit foods and liquids with "added sugars." (Added sugars include sucrose, fructose, glucose, maltose, dextrose, high fructose corn syrup, corn syrup, concentrated fruit juice and honey). (7) Stop Smoking. If you smoke, quitting smoking is one of the best things that you can do for your health. Smoking increases your risk of heart attack, stroke, and peripheral vascular disease, which is a build-up of plaque in your arteries. Please discard all the cigarettes and lighters in your house. Have a plan for what you will do when you have the urge to smoke. Direct and second- hand smoke shortens your life as well as the lives of your family, friends and others around you. For your health and the health of those around you, please consider quitting! Proper Bending Body Mechanics: Maintain a wide stance with one foot slightly in front of the other. Keep your back straight. Bend utilizing the strength in your hips and knees. Do not bend at the waist. Maintain the lifted object at your waist-level close to your body. Avoid lifting weight that causes immediately pain or pain anywhere in the body afterwards. Smoking/Nicotine If there was ever one thing that you could do to increase your overall health, decrease your risk of cardiovascular problems by about 39% the second you make the choice, it is to STOP SMOKING. Your body's most instant gratification is the second you stop smoking. We have all heard the studies, read the articles but it is true, smoking is extremely bad for your overall health, and moreover it is detrimental to your bone health. Nicotine, IN ANY FORM, kills bone cells, prevents your body from healing fractures, and significantly prolongs healing after surgery. In spine surgery specifically, it increases your risk of not healing your bones to create a fusion and increases your risk of having a revision surgery due to this up to 60%. I know it is hard. I know it feels impossible. But there are ways. Take control of your life. We are here to help you through it. And when you are ready, ask us and we can direct you to help if you desire. Use the START Plan to Quit Smoking (please visit the Helpguide.org website listed below for more information): S = Set a quit date. Choose a date within the next 2 weeks, so you have enough time to prepare without losing your motivation to quit. If you mainly smoke at work, quit on the weekend, so you have a few days to adjust to the change. T = Tell family, friends, and co-workers that you plan to quit. Let your friends and family in on your plan to quit smoking and tell them you need their support and encouragement to stop. Look for a quit harvey who wants to stop smoking as well. You can help each other get through the rough times. A = Anticipate and plan for the challenges you'll face while quitting. Most people who begin smoking again do so within the first 3 months. You can help yourself make it through by preparing ahead for common challenges, such as nicotine withdrawal and cigarette cravings. R = Remove cigarettes and other tobacco products from your home, car, and work. Throw away all your cigarettes (no emergency pack!), lighters, ashtrays, and matches. Wash your clothes and freshen up anything that smells like smoke. Shampoo your car, clean your drapes and carpet, and steam your furniture. T = Talk to your doctor about getting help to quit. Your doctor can prescribe medication to help with withdrawal and suggest other alternatives. If you can't see a doctor, you can get many products over the counter at your local pharmacy or grocery store, including the nicotine patch, nicotine lozenges, and nicotine gum. Resources for Quitting Smoking: <https://www.[place].gov/documents/[facility]/Quit_Tobacco_Resources_for_patients_313 480_7.pdf> Supplementation: Take recommended dosages of Vitamin D and Calcium to help fortify your bones and help them to heal. See your health maintenance packet for dosages and recommended levels. DVT/VTE prophylaxis: You will be given compression stockings from the hospital. Wear these daily for the first two weeks after surgery. You may take them off at night. You may be prescribed a medication to help thin your blood. Take this as directed. If you are not prescribed this medication, early and frequent ambulation has been shown to be the best prophylaxis to deep vein thrombosis and sequelae related to this event. Assessment: 1. L4-S1 spondylosis with stenosis Procedures: - Postop day 1 status post L4-S1 MITLIF and decompression Patient Condition at Discharge: Good Plan - Discharge Summary Discharge Rx Participant: No New Discharge Prescriptions: New Cyclobenzaprine [Flexeril] 5 mg PO TID #28 tablet Gabapentin 300 mg PO TID #30 cap HYDROcodone/APAP 10-325MG [Roseland 10-325] 1 tab PO Q6HR PRN #32 tab PRN Reason: Pain cefaDROXiL [Duricef] 500 mg PO Q12HR 5 Days #10 cap Sennosides/Docusate Sodium [Senna Plus 8.6-50 mg Tablet] 1 each PO DAILY #20 tab No Action Lansoprazole 30 mg PO BID Albuterol Sulfate [Proair Hfa] 1 - 2 puff INHALATION Q6HR PRN PRN Reason: Shortness Of Breath Beclomethasone Dipropionate [Qvar 80 mcg/puff] 2 puff INHALATION BID PRN PRN Reason: Shortness Of Breath Hydrocodone/Acetaminophen [Ros[place] 7.5-325] 0.5 - 1 each PO Q4-6H PRN PRN Reason: Pain methIMAzole [Tapazole] 2.5 mg PO DAILY Citalopram Hydrobromide [Citalopram HBr] 20 mg PO DAILY Atorvastatin [Lipitor] 20 mg PO HS Meloxicam 15 mg PO DAILY Severe Sinus Congestion Relief 2 tab PO TID PRN PRN Reason: SINUS CONGESTION Discharge Medication List Lansoprazole 30 mg PO BID 09/09/14 [History] Albuterol Sulfate [Proair Hfa] 1 - 2 puff INHALATION Q6HR PRN 09/25/14 [History] Beclomethasone Dipropionate [Qvar 80 mcg/puff] 2 puff INHALATION BID PRN 09/25/14 [History] Hydrocodone/Acetaminophen [Roseland 7.5-325] 0.5 - 1 each PO Q4-6H PRN 10/26/14 [History] Atorvastatin [Lipitor] 20 mg PO HS 05/31/21 [History] Citalopram Hydrobromide [Citalopram HBr] 20 mg PO DAILY 05/31/21 [History] methIMAzole [Tapazole] 2.5 mg PO DAILY 05/31/21 [History] Meloxicam 15 mg PO DAILY 10/12/21 [History] Severe Sinus Congestion Relief 2 tab PO TID PRN 12/29/21 [History] Cyclobenzaprine [Flexeril] 5 mg PO TID #28 tablet 01/05/22 [Rx] Gabapentin 300 mg PO TID #30 cap 01/05/22 [Rx] HYDROcodone/APAP 10-325MG [Ros[place] 10-325] 1 tab PO Q6HR PRN #32 tab 01/05/22 [Rx] Sennosides/Docusate Sodium [Senna Plus 8.6-50 mg Tablet] 1 each PO DAILY #20 tab 01/05/22 [Rx] cefaDROXiL [Duricef] 500 mg PO Q12HR 5 Days #10 cap 01/05/22 [Rx] Follow up Appointment(s)/Referral(s): [facility], [NON-STAFF] - Matt Rosen DO [Doctor of Osteopathic Medicine] - 2 Weeks Patient Instructions/Handouts: Hydrocodone/Acetaminophen (By mouth), Gabapentin (By mouth), Lumbar Spinal Fusion (DC) Activity/Diet/Wound Care/Special Instructions: Spine Discharge and Recovery Instructions Date of Surgery: 01/02/2022 Diagnosis: L4 to S1 spondylosis with stenosis Procedure: L4 to S1 and IT F Medications: see list All medication refills should be obtained through your primary care doctor or your clinic spine surgeon. Please discuss prescription refills at your follow up appointment. Do not call the hospital for medication refills. Activity: encourage ambulation daily [OOB 6-8x daily no lifting bending twisting nothing greater than 5 pounds [Up in chair with all meals, OOB all meals [Shower daily Brace: Wear back brace when up and about at all times. Do not wear while sleeping or showering. May take breaks from brace while sitting or laying and resting. Dressing: Leave your dressing in place for a total of 3 days post operatively. Then you may remove your dressing and leave open to air. Keep the area clean and if not able to keep area clean, then cover with sterile gauze and tape. Showering: You may shower 3 days after your procedure allowing soap and water to run over incision. Do not scrub. Do not soak. Blot dry. Follow up: Please confirm a follow up appointment with your surgeon 2 weeks post operatively. Please make an appointment to follow up with your PCP in 1-2 weeks after surgery for evaluation 3 phase, 3-week plan POST OP WEEKS 1-3 1. Lifting/carrying/pushing/pulling limited to less than 5 pounds. 2. Do not sit for longer than 15 minutes at one time. Get up and walk around. Prolonged sitting is NOT advised. If you lay down, see if you can tolerate laying down on you front (belly side) 3. Walk for periods of 15 minutes = 1 mile but no longer; do it multiple times times each day. 4.Ice your low back after activity. POST OP WEEKS 3-6 1. Lifting limited to less than 20 pounds. 2. Do not sit for longer than 30 minutes at a time. Frequently change positions. Use a sit-to stand workstation or take frequent breaks from sitting if you have returned to work. 3. Walk for 30 minutes each day. If possible, do these three or more times a day POST OP WEEKS 6+ At your 6-week appointment we will give you a physical therapy referral to focus on a core stabilization and strengthening program. You should also work on leg & buttock strengthening, hamstring & quadriceps stretching, and continue a low impact aerobic activity program such as swimming, walking, or riding a stationary bicycle. During the initial 6 weeks after your surgery, you are at the highest risk of re-injuring your spine. You should generally avoid BLTs (bending, lifting and twisting combination motions) and follow the above guidelines to reduce the chance of reinjury. You can anticipate post op appointments in our office at approximately 3 weeks and 6 weeks after your surgery. INCISION CARE: If your incision is not draining you do NOT need to cover it with a dressing. Keep your incision clean, dry and intact. In most cases, we apply skin glue, reinaldo or sutures to the incision at the time of surgery. This will be like a crust or have the appearance of a scab and will fall off in time on its own. The stitches or reinaldo need to be removed at 3 weeks post op appointment. You may begin to shower 3 days after surgery (this allows the glue to cano well). However, please avoid scrubbing the incision site or peeling off any of the skin glue. This will ensure optimal healing of your incision. Also, during this time avoid soaking the incision area in water - this includes swimming pools, hot tubs or baths. No ointments, lotions or oils on the incision until your surgeon allows. Leave reinaldo, sutures or glue in place. Neurological dysfunction that comes on suddenly can also be a sign of a stroke. Below some common symptoms of a stroke are listed: B - balance difficulty such as sudden onset walking or leaning to one side - NEW E - eye problem such as sudden double vision or trouble seeing on one side - NEW F - Facial weakness or numbness on one side - NEW A - Arm or leg weakness or numbness on one side - NEW S - Slurred speech or difficulty with word finding - NEW T - Time is BRAIN! Call 911 as soon as you recognize these symptoms Diet: Consume a regular diet rich in vegetables and lean protein such as chicken or fish. You should consume in a ratio of approximately 20% fats|40% carbohydrates|40%protein. Vegetables, sweet potatoes, brown rice or quinoa are examples of good carbohydrates. Chips, white bread, cookies and sweets/sugar are examples of bad carbohydrates. Limit your bad carbs, go wild with good carbs. "Life's Simple 7" Guidelines as per [place] [employer] These will help you reclaim your life after surgery and form builder helper in your recovery, keeping in mind your restrictions. (1) Get Active. Physical activity can help people lose weight, control high blood pressure and cholesterol, feel emotionally better, and sleep better. (2) Control Cholesterol. Avoid a diet high in saturated fat, trans fat, & cholesterol. Limit whole milk & cream, ice cream, butter, egg yolks, processed meats (like sausage and hot dogs), and fatty meats. Choose healthy foods that are low in saturated fat, trans fat and cholesterol which include: Fruits and vegetables, fiber rich grain products (like whole grain pasta and brown rice), lean meat such as chicken, fish, nuts, seeds, and legumes. (3) Eat Better. Eat small portions. Shop at the grocery with a list and do not stray from it. Tips for a healthy diet include: Limit sodium intake to less than 1500mg daily, avoid prepackaged, processed, and fast foods, choose a diet rich in fruits, vegetables, and whole grain, high fiber foods, and limit saturated & cholesterol in your diet. (4) Manage Blood Pressure. If you have high blood pressure, you should have a cuff at home so that you can check your blood pressure regularly. Be sure you have a good cuff. An arm one is generally better than a wrist one. Bring the cuff to a doctor's appointment to validate that the measurements that your cuff are taking are accurate. Take your blood pressure twice daily when you are sitting down and relaxing. Record the numbers in a log and bring this log with you to your doctors' appointments. (5) Lose Weight if your BMI is above 25. A healthy BMI is between 19-25. To calculate Your BMI, you may use a Standard BMI Calculator on the NIH BMI website: <www.nhlbi.nih.gov/guidelines/obesity/BMI/bmicalc.htm>. Weigh oneself daily. If you are overweight, set a goal to lose weight. A pound a week loss if needed is a good target. (6) Reduce Blood Sugar. Limit foods and liquids with "added sugars." (Added sugars include sucrose, fructose, glucose, maltose, dextrose, high fructose corn syrup, corn syrup, concentrated fruit juice and honey). (7) Stop Smoking. If you smoke, quitting smoking is one of the best things that you can do for your health. Smoking increases your risk of heart attack, stroke, and peripheral vascular disease, which is a build-up of plaque in your arteries. Please discard all the cigarettes and lighters in your house. Have a plan for what you will do when you have the urge to smoke. Direct and second- hand smoke shortens your life as well as the lives of your family, friends and others around you. For your health and the health of those around you, please consider quitting! Proper Bending Body Mechanics: Maintain a wide stance with one foot slightly in front of the other. Keep your back straight. Bend utilizing the strength in your hips and knees. Do not bend at the waist. Maintain the lifted object at your waist-level close to your body. Avoid lifting weight that causes immediately pain or pain anywhere in the body afterwards. Smoking/Nicotine If there was ever one thing that you could do to increase your overall health, decrease your risk of cardiovascular problems by about 39% the second you make the choice, it is to STOP SMOKING. Your body's most instant gratification is the second you stop smoking. We have all heard the studies, read the articles but it is true, smoking is extremely bad for your overall health, and moreover it is detrimental to your bone health. Nicotine, IN ANY FORM, kills bone cells, prevents your body from healing fractures, and significantly prolongs healing after surgery. In spine surgery specifically, it increases your risk of not healing your bones to create a fusion and increases your risk of having a revision surgery due to this up to 60%. I know it is hard. I know it feels impossible. But there are ways. Take control of your life. We are here to help you through it. And when you are ready, ask us and we can direct you to help if you desire. Use the START Plan to Quit Smoking (please visit the Helpguide.org website listed below for more information): S = Set a quit date. Choose a date within the next 2 weeks, so you have enough time to prepare witho ut losing your motivation to quit. If you mainly smoke at work, quit on the weekend, so you have a few days to adjust to the change. T = Tell family, friends, and co-workers that you plan to quit. Let your friends and family in on your plan to quit smoking and tell them you need their support and encouragement to stop. Look for a quit harvey who wants to stop smoking as well. You can help each other get through the rough times. A = Anticipate and plan for the challenges you'll face while quitting. Most people who begin smoking again do so within the first 3 months. You can help yourself make it through by preparing ahead for common challenges, such as nicotine withdrawal and cigarette cravings. R = Remove cigarettes and other tobacco products from your home, car, and work. Throw away all your cigarettes (no emergency pack!), lighters, ashtrays, and matches. Wash your clothes and freshen up anything that smells like smoke. Shampoo your car, clean your drapes and carpet, and steam your furniture. T = Talk to your doctor about getting help to quit. Your doctor can prescribe medication to help with withdrawal and suggest other alternatives. If you can't see a doctor, you can get many products over the counter at your local pharmacy or grocery store, including the nicotine patch, nicotine lozenges, and nicotine gum. Resources for Quitting Smoking: <https://www.[place].gov/documents/[facility]/Quit_Tobacco_Resources_for_patients_ 313480_7.pdf> Supplementation: Take recommended dosages of Vitamin D and Calcium to help fortify your bones and help them to heal. See your health maintenance packet for dosages and recommended levels. DVT/VTE prophylaxis: You will be given compression stockings from the hospital. Wear these daily for the first two weeks after surgery. You may take them off at night. You may be prescribed a medication to help thin your blood. Take this as directed. If you are not prescribed this medication, early and frequent ambulation has been shown to be the best prophylaxis to deep vein thrombosis and sequelae related to this event. Discharge Disposition: HOME WITH HOME HEALTH SERVICES
--- NOTE | 2022-01-05 12:55 | P.PN ---
Subjective Progress Note Date: 01/05/22 Principal diagnosis: L4-S1 spondylosis with stenosis Patient was seen at bedside early this afternoon lying in semirecumbent position. Patient says she has been doing much better and her nausea has been up much better control over the past couple days. Patient says she is looking forward to going home today. Patient says she has been walking up and down the hallway several times under own power. Patient is feeling improvement in the low back pain. Patient denies chest pain, fever, shortness of breath, change in vision, loss of bowel/bladder control. Objective - Vital Signs Vital signs: Vital Signs Temp 98 F 01/05/22 04:55 Pulse 75 01/05/22 04:55 Resp 18 01/05/22 04:55 BP 117/75 01/05/22 04:55 Pulse Ox 95 01/05/22 04:55 FiO2 Intake & Output 01/04/22 01/05/22 01/05/22 18:59 06:59 18:59 Intake Total 100 850 Balance 100 850 Intake: Intake, IV Titration 100 50 Amount ceFAZolin 2 gm In Sodium 100 50 Chloride 0.9% 50 ml @ 100 mls/hr IVPB Q8HR [facility] Rx# :[id number] Oral 800 Other: Voiding Method Toilet Toilet Toilet # Voids 1 2 - Exam Dressings were removed. Incisions appear to be clean, dry, intact at this time. [place] are well aligned. Negative for any drainage/purulence/fluctuance. New dressings were placed over incisions. Sensation is equal, symmetric, and intact throughout the upper and lower extremities. Moderate TTP diffusely throughout lumbar spine near incisions. Patient has full range of motion bilateral upper and lower extremities. 4+/5 in all major motor groups in upper and lower extremities. Neurovascular status is intact bilaterally. Cap refill under 3 seconds in digits upper extremities. Radial pulses intact, 2+ bilaterally. DP pulses palpable bilaterally. Negative Homans bilaterally - Labs CBC & Chem 7: 01/03/22 05:34 01/03/22 05:34 Assessment and Plan Assessment: 1. L4-S1 spondylosis with stenosis - Postop day 3 status post L4-S1 MITLIF Plan: 1. L4-S1 spondylosis with stenosis - surgery performed yesterday, 12/25/2021 - L4-S1 MITLIF. Patient stable at bedside this morning. Patient has been doing much better this morning and she has walked up-and-down the hallway multiple times on her own. Discharge home today with health services. 2. Appreciate medical management 3. Pain management - going home with [place] 10 mg/325 mg; gabapentin 30 mg; Flexeril 5 mg 4. DVT prophylaxis - mechanical 5. GI prophylaxis - Protonix; home with senna 6. PT/OT - WBAT w/walker 7. Encourage incentive spirometer use 8. Discharge planning - home today with health services Time with Patient: Less than 30
[2022-01-05 12:57] VITALS: BP 122/78; PULSE 92; RESP 15; TEMP 98.9
== END 2022-01-05 14:30 | disposition home health service (06) | DRG 455 ==
LOC: 2ORMAIN 05:54 → 5NMEDONC 15:14
PROVIDERS: ADMIT Orthopaedic Surgery; ATTEND Orthopaedic Surgery
PROC: 0SG0071 Fusion of Lumbar Vertebral Joint with Autologous Tissue Substitute, Posterior Approach, Posterior Column, Open Approach (ICD-10-PCS; 2022-01-02)
PROC: 0SG30AJ Fusion of Lumbosacral Joint with Interbody Fusion Device, Posterior Approach, Anterior Column, Open Approach (ICD-10-PCS; 2022-01-02)
PROC: 0SG3071 Fusion of Lumbosacral Joint with Autologous Tissue Substitute, Posterior Approach, Posterior Column, Open Approach (ICD-10-PCS; 2022-01-02)
PROC: 01NB0ZZ Release Lumbar Nerve, Open Approach (ICD-10-PCS; 2022-01-02)
PROC: 01NR0ZZ Release Sacral Nerve, Open Approach (ICD-10-PCS; 2022-01-02)
PROC: 0ST20ZZ Resection of Lumbar Vertebral Disc, Open Approach (ICD-10-PCS; 2022-01-02)
PROC: 0ST40ZZ Resection of Lumbosacral Disc, Open Approach (ICD-10-PCS; 2022-01-02)
PROC: 4A11X4G Monitoring of Peripheral Nervous Electrical Activity, Intraoperative, External Approach (ICD-10-PCS; 2022-01-02)
PROC: 8E0WXBF Computer Assisted Procedure of Trunk Region, With Fluoroscopy (ICD-10-PCS; 2022-01-02)
PROC: 07DR0ZZ Extraction of Iliac Bone Marrow, Open Approach (ICD-10-PCS; 2022-01-02)
PROC: 07DS0ZZ Extraction of Vertebral Bone Marrow, Open Approach (ICD-10-PCS; 2022-01-02)
PROC: 0SG00AJ Fusion of Lumbar Vertebral Joint with Interbody Fusion Device, Posterior Approach, Anterior Column, Open Approach (ICD-10-PCS; principal; 2022-01-02 07:30)
DX: M48.061 Spinal stenosis, lumbar region without neurogenic claudication (principal); M47.26 Other spondylosis with radiculopathy, lumbar region; M51.16 Intervertebral disc disorders with radiculopathy, lumbar region; M62.81 Muscle weakness (generalized); M40.299 Other kyphosis, site unspecified; E11.9 Type 2 diabetes mellitus without complications; M40.209 Unspecified kyphosis, site unspecified; M79.7 Fibromyalgia; R11.2 Nausea with vomiting, unspecified; G47.9 Sleep disorder, unspecified; Z87.828 Personal history of other (healed) physical injury and trauma; Z88.8 Allergy status to other drugs, medicaments and biological substances; Z71.6 Tobacco abuse counseling; Z79.1 Long term (current) use of non-steroidal anti-inflammatories (NSAID); Z79.899 Other long term (current) drug therapy; Z80.1 Family history of malignant neoplasm of trachea, bronchus and lung; Z87.891 Personal history of nicotine dependence; Z90.710 Acquired absence of both cervix and uterus; Z98.1 Arthrodesis status
CPT/HCPCS: 72100; 72131; 80048; 85025; 86850; 86900; 86901; 88304; 88305; 94640

== ENCOUNTER → 2022-03-05 | Outpatient (CLI) | payer MEDICARE ==
--- NOTE | 2022-03-05 09:51 | MM ---
Reason for Exam: Screening (asymptomatic). Last mammogram was performed 1 year(s) and 2 month(s) ago. Patient History: Menarche at age 16. Patient has no children. Hysterectomy at age 48. Postmenopausal. 2002, Benign Excisional Biopsy on the left side. Risk Values: Anita 5 year model risk: 1.9%. NCI Lifetime model risk: 7.7%. Prior Study Comparison: 04/16/2016 Screening Mammogram, Unknown. 06/06/2017 Screening Mammogram, Unknown. 07/31/2019 Bilateral Screening Mammogram, [facility]. 12/27/2020 Bilateral Screening Mammogram, [facility]. Tissue Density: There are scattered fibroglandular densities. Findings: Analyzed By CAD. Benign-appearing calcifications. There is no suspicious group of microcalcifications or new suspicious mass in either breast. Overall Assessment: Benign, BI-RAD 2 Management: Screening Mammogram of both breasts in 1 year. A clinical breast exam by your physician is recommended on an annual basis and results should be correlated with mammographic findings. Electronically signed and approved by: Mario Marks DO
== END | disposition home or self-care (01) ==
LOC: RADMAMWWP 07:11
PROVIDERS: ATTEND Obstetrics & Gynecology
DX: Z12.31 Encounter for screening mammogram for malignant neoplasm of breast (principal)
CPT/HCPCS: 77063; 77067

== ENCOUNTER → 2022-04-28 | Outpatient (CLI) | payer OTHER ==
--- NOTE | 2022-04-28 19:20 | MR ---
EXAMINATION TYPE: MR cervical spine wo/w con DATE OF EXAM: 04/28/2022 COMPARISON: None HISTORY: CERVICAL NEURITIS CONTRAST: Standard multiplanar, multisequence MRI departmental protocol images were obtained without contrast a nd with 5 mL intravenous Gadavist gadolinium contrast. The cervical vertebra have normal alignment. There is metal artifact from anterior multilevel fusion surgery. Cervical cord shows no edema. No significant spinal stenosis. The canal measures 8.5 mm at C 4-5 which is the narrowest point. The posterior elements are intact. There is no evidence of cervical paraspinal mass. The contrast images show no pathologic enhancement. The brainstem is intact. IMPRESSION: Multilevel fusion surgery. No spinal stenosis. No complicating process seen.
== END | disposition home or self-care (01) ==
LOC: RADMRIMAIN 14:10
PROVIDERS: ATTEND Family Medicine
DX: M54.12 Radiculopathy, cervical region (principal)
CPT/HCPCS: 72156; A9585

== ENCOUNTER → 2022-06-06 | Outpatient (CLI) | payer MEDICARE, BC ==
--- NOTE | 2022-06-06 14:25 | BD ---
EXAMINATION TYPE: Axial Bone Density DATE OF EXAM: 06/06/2022 COMPARISON: BASELINE CLINICAL HISTORY: 66 years year old Female. ICD-10 CODE: M85.80 oth disorder of bone structure/densi ty Height: 60.5 Weight: 115.4 FRAX RISK QUESTIONS: Alcohol (3 or more units per day): Family History (Parent hip fracture): NO Glucocorticoids (More than 3mos): NO (Ex: prednisone, prednisolone, methylprednisolone, dexamethasone, and hydrocortisone). History of Fracture in Adulthood: YES, RIGHT TOES Secondary Osteoporosis: 1. Type 1 Diabetes: NO 2. Hyperthyroidism: NO 3. Menopause before 45: 48 4. Malnutrition: NO 5. Chronic liver disease: NO Rheumatoid Arthritis: NO Current Tobacco Use: NO RISK FACTORS HISTORY OF: Surgery to Spine/Hip(right/left)/Wrist (right/left): SURGERY TO LUMBAR SPINE When: DECEMBER 2021 Family History of Osteoporosis: NO Active: YES Diet low in dairy products/other sources of calcium: YES Postmenopausal woman: YES Lost more than 2 inches in height since high school: NO Frequent falls: NO Poor Health: GOOD Hyperparathyroidism: NO Adrenal Insufficiency: NO MEDICATIONS: Thyroid Medications: YES Which medication: How Lon-6 YEARS Additional Medications: VICODIN NEEDED, MUSCLE RELAXER NEEDED, THYROID MEDS, DEPRESSION MEDS Additional History: NONE EXAM MEASUREMENTS: Bone mineral densitometry was performed using the [employer]. Bone mineral density about the R hip (g/cm2): 0.799 Bone mineral density about the L hip (g/cm2): 0.783 T Score values are as follows: -----R Neck: -1.8 -----L Neck: -2.1 -----R Total: -1.7 -----L Total: -1.8 Bone mineral density about the L Wrist (g/cm2): 0.526 T Score values are as follows: -----Dist. R+U: -2.9 -----Prox. R+U: -1.6 -----Radius total: -2.5 FRAX%s: The graph provided illustrates a 8.6% chance for a major osteoporotic fx and a 2.4% chance fo r the hips probability for fx in 10 years time. IMPRESSION: Osteoporosis (T Score less than -2.5). There is increased fracture risk and therapy is usually indicated based on age. Re-Screen 1-2 years. NOTE: T-SCORE=SD OF THE YOUNG ADULT MEAN.
== END | disposition home or self-care (01) ==
LOC: RADBDWWP 13:14
PROVIDERS: ATTEND Obstetrics & Gynecology
DX: M81.0 Age-related osteoporosis without current pathological fracture (principal); Z78.0 Asymptomatic menopausal state
CPT/HCPCS: 77080

== ENCOUNTER → 2023-01-31 | Outpatient (CLI) | payer MEDICARE ==
--- NOTE | 2023-01-31 08:31 | CTL ---
EXAMINATION TYPE: CT Low Dose Lung DATE OF EXAM: 01/31/2023 7:04 AM CLINICAL INDICATION:Female, 67 years old with history of Z87.891 personal hx tobacco use; smoker , hi story of tobacco use. COMPARISON: 02/04/2019. TECHNIQUE: Multiple axial non-contrast scans were obtained from approximately the lung apices through the upper abdomen. Coronal and sagittal reformatted images were obtained. Low dose technique was uti lized. CT DLP: 55.8 mGycm, Automated exposure control for dose reduction was used. CT Contrast: Contrast used: None Oral contrast used: None FINDINGS: ======== Lack of intravenous contrast and low dose technique limits the evaluation of the vascular and soft ti ssue structures. LUNGS: No evidence of pulmonary fibrosis. No evidence of focal consolidation, pneumothorax or pleural effusion. Centrilobular and paraseptal emphysema changes are seen predominantly in the lung apices. Streaky atelectasis with medical vascular crowding in the left lung base stenting towards the periphe ry. Focal atelectasis/scarring in the left lung base in the area of concern in 02/04/2019. Nodules: RUL: None. RML: None. RLL: None. JULIA: None. LLL: None. AIRWAY: Patent and unremarkable. HEART: Size within normal limits. MEDIASTINUM: No gross evidence of adenopathy. VASCULATURE: No aortic aneurysm. MUSCULOSKELETAL: Mild disc degeneration changes are present throughout the thoracolumbar spine. SOFT TISSUES/LYMPH NODES: Unremarkable. LOWER NECK: No significant findings. UPPER ABDOMEN: Postsurgical changes to gastroesophageal junction. Small hiatal hernia remains present . IMPRESSION: 1. No clinically significant pulmonary nodules. Focal area within the left lung base seen on prior i s felt to represent atelectasis/scarring and is not significantly changed on today's exam. 2. Postsurgical changes to the gastroesophageal junction with small hiatal hernia. 3. Moderate emphysema changes. CT LUNG RAD AND CT CHEST RECOMMENDATION: Lung-Rad 1 Negative: Continue annual screening with LDCT in 12 months. S Modifier (other clinically significant findings): None Recommend smoking cessation (if current smoker), or continuation of smoking cessation (if prior smoke r). Annual screening for lung cancer with low-dose computed tomography is recommended in adults ages 55 to 77 years who have a 30 pack-year smoking history and currently smoke or have quit within the pa st 15 years. Screening should be discontinued once a person has not smoked for 15 years or develops a health problem that substantially limits life expectancy or the ability or willingness to have curat britt lung surgery. Lung rads 2021 [email or web address]
== END | disposition home or self-care (01) ==
LOC: RADCTMAIN 06:43
PROVIDERS: ATTEND Family Medicine
DX: Z12.2 Encounter for screening for malignant neoplasm of respiratory organs (principal); J43.2 Centrilobular emphysema; K44.9 Diaphragmatic hernia without obstruction or gangrene; F17.210 Nicotine dependence, cigarettes, uncomplicated
CPT/HCPCS: 71271

== ENCOUNTER → 2023-07-22 | Outpatient (CLI) | payer MEDICARE ==
[2023-07-22 11:13] VITALS: BP 126/72; PULSE 73; RESP 15; TEMP 98.4
--- NOTE | 2023-07-22 14:23 | P.PAINPG ---
Objective - Vital Signs Vital signs: Intake & Output 07/21/23 07/22/23 07/22/23 18:59 06:59 18:59 Weight 76.204 kg PQRS Measure Charge Sheet Comment: A 67 yr old female with a history of severe and chronic neck pain x 4 mo secondary to cervical DDD, spondylosis and facet arthropathy without myelopathy presents today for evaluation. Pain level is currently at 7/ 10 in intensity, predominantly axial, sore in the L lower aspects of the cervical spine, with occ asional radiation of pain to the L shoulder. Pain is provoked by twisting, bending or lifting. Pain is alleviated with medications, topicals, injections, ice, heat, physical therapy 1 year ago which made the pain worse, laying on her side, repositioning and rest. Interventional pain procedures completed include OSBALDO, LESI L5-S1, BL RFA L3-5 x 2. Patient is currently on [place] 7.5/325mg by Dr Rosen Patient denies any side effects of the medication(s), denies excessive drowsiness or sleepiness, denies suicidal ideation and reports that the current pain medication is helping to control the pain and improve activities of daily living. Patient denies any motor or sensory deficits. Patient denies any fever or night sweats, denies any change in the bowel movements or urination. Physical Examination: -Constitutional: Cooperative. Not in acute distress . -HEENT: Neck is supple. No lymphadenopathy. No thyromegaly. Normal thyroid size. Eyes: No ptosis , no icterus, no photophobia. ENT: No auditory deficits. Normal oropharynx. No Thrush. - Respiratory: Chest clear to auscultations bilaterally. No wheezing. No rhonchi. - Cardiovascular: Regular rate and rhythm. S1 / S2 , no S3 , no S4. - Gastrointestinal: Abdomen soft no tenderness. Bowel sounds positive in all four quadrants. No organomegaly. - Genitourinary: Deferred. - Neurologic: Cranial nerve II to XII intact. No focal neurological deficits. - Psychatric: Alert & oriented x 3. Matching mood & appropriate affect. Judgment and insight intact. - Lymphatic: No Lymphadenopathy. - Musculoskeletal: Cervical spine: Muscle bulk/ tone/ strength in the bilateral upper extremities normal. Vertebral body TTP over C7 Facet loading test cervical area positive. Lumbar spine: Motor bulk/ tone/ strength lower extremities , thigh and legs : 5/5 Deep tendon reflexes : Normal Knee Jerk. Normal Ankle Jerk . Vertebral body tenderness to palpation Lumbar Facet Loading Test positive Straight Leg Raise: positive at 30 degrees right side/ left side Gaenslen's Test positive Sacral spine : Severe tenderness over the Sacroiliac joint: right side / left side Range of motion: Flexion of the lumbar spine <60 degrees Range of motion: Extension of the lumbar spine <20 degrees Gaenslen's Test positive Toñito test: positive right side / left side Assessment and plan: Chronic neck pain secondary to cervical DDD , lumbar spondylosis with fac et arthropathy without myelopathy Recommendation of PT x 6 wks M 50.30 RTC in 6 wks for a re evaluation. All patient questions answered MAPS reviewed and it was appropriate. I have spent 31 minutes on patient care today. Dr Marmolejo was available by phone for the evaluation of this patient. The time was used to review the medical records including relevant urine studies and Prescription history (MAPs), review of the available imaging, evaluation and examination of the patient, coordination of care with the medical staff and if applicable referring physicians, as well as creation of the medical record PQRS Narrative: Smoking Status Former smoker Hx Alcohol Use (MH) Yes Home Medications: Ambulatory Orders Lansoprazole 30 mg PO BID 09/09/14 Albuterol Sulfate [Proair Hfa] 1 - 2 puff INHALATION Q6HR PRN 09/25/14 Beclomethasone Dipropionate [Qvar 80 mcg/puff] 2 puff INHALATION BID PRN 09/25/14 Hydrocodone/Acetaminophen [[place] 7.5-325] 0.5 - 1 each PO Q4-6H PRN 10/26/14 Atorvastatin [Lipitor] 20 mg PO HS 05/31/21 Citalopram Hydrobromide [Citalopram HBr] 20 mg PO DAILY 05/31/21 methIMAzole [Tapazole] 2.5 mg PO DAILY 05/31/21 Meloxicam 15 mg PO DAILY 10/12/21 Severe Sinus Congestion Relief 2 tab PO TID PRN 12/29/21 Cyclobenzaprine [Flexeril] 5 mg PO TID #28 tablet 01/05/22 Gabapentin 300 mg PO TID #30 cap 01/05/22 HYDROcodone/APAP 10-325MG [[place] 10-325] 1 tab PO Q6HR PRN #32 tab 01/05/22 Sennosides/Docusate Sodium [Senna Plus 8.6-50 mg Tablet] 1 each PO DAILY #20 tab 01/05/22 cefaDROXiL [Duricef] 500 mg PO Q12HR 5 Days #10 cap 01/05/22 Controlled Substance Measures - Controlled Substance Measures Is patient prescribed a controlled substance at discharge?: No
== END ==
LOC: PNWHC3 10:28
PROVIDERS: ATTEND Specialist
DX: M50.323 Other cervical disc degeneration at C6-C7 level (principal); M47.812 Spondylosis without myelopathy or radiculopathy, cervical region; G89.29 Other chronic pain; F12.90 Cannabis use, unspecified, uncomplicated; Z87.891 Personal history of nicotine dependence; Z88.5 Allergy status to narcotic agent
CPT/HCPCS: 99211

== ENCOUNTER → 2023-07-31 | Outpatient (CLI) | payer MEDICARE ==
--- NOTE | 2023-07-31 20:52 | MM ---
Reason for Exam: Screening (asymptomatic). Last mammogram was performed 1 year(s) and 5 month(s) ago. Patient History: Menarche at age 16. Patient has no children. Hysterectomy at age 48. Postmenopausal. 2002, Benign Excisional Biopsy on the left side. Risk Values: Anita 5 year model risk: 1.3%. NCI Lifetime model risk: 4.6%. Prior Study Comparison: 04/16/2016 Screening Mammogram, Unknown. 06/06/2017 Screening Mammogram, Unknown. 07/31/2019 Bilateral Screening Mammogram, [facility]. 12/27/2020 Bilateral Screening Mammogram, [facility]. 03/05/2022 Bilateral MG 3D screening mammo w/cad, [facility]. Tissue Density: There are scattered fibroglandular densities. Findings: Analyzed By CAD. Benign dermal calcifications on both sides. There is no suspicious group of microcalcifications or new suspicious mass in either breast. Overall Assessment: Benign, BI-RAD 2 Management: Screening Mammogram of both breasts in 1 year. . Patient should continue monthly self-breast exams. A clinical breast exam by your physician is recommended on an annual basis. This exam should not preclude additional follow-up of suspicious palpable abnormalities. Note on Anita scores and lifetime risk: 1. A Anita score greater than 3% is considered moderate risk. If this is the case, consider specialist referral to assess eligibility for a risk reducing agent. 2. If overall lifetime risk for the development of breast cancer is 20% or higher, the patient may qualify for future screening with alternating mammogram and breast MRI. Electronically signed and approved by: Lyly Vasquez M.D. Radiologist
== END | disposition home or self-care (01) ==
LOC: RADMAMWWP 07:27
PROVIDERS: ATTEND Obstetrics & Gynecology
DX: Z12.31 Encounter for screening mammogram for malignant neoplasm of breast (principal); Z78.0 Asymptomatic menopausal state
CPT/HCPCS: 77063; 77067

== ENCOUNTER → 2023-09-23 | Outpatient (CLI) | payer MEDICARE, OTHER ==
[2023-09-23 12:18] VITALS: BP 126/86; PULSE 89; RESP 15; TEMP 98.6
--- NOTE | 2023-09-23 13:22 | P.PAINPG ---
PQRS Measure Charge Sheet Comment: A 67 yr old female with a history of severe and chronic neck pain x 4 mo secondary to cervical DDD, spondylosis and facet arthropathy without myelopathy presents today for evaluation. Pain level is currently at 6-7/ 10 in intensity, predominantly axial, sore in the L lower aspects of the cervical spine, with occasional radiation of pain to the L shoulder. Pain is provoked by twisting, bending or lifting. Pain is alleviated with PT x 5 wks which she is currently in, medications, topicals, injections, ice, heat, physical therapy 1 year ago which made the pain worse, laying on her side, repositioning and rest. Cervical disability score of 26. Interventional pain procedures completed include OSBALDO, LESI L5-S1, BL RFA L3-5 x 2. Patient is currently on [place] 7.5/325mg by Dr Rosen Patient denies any side effects of the medication(s), denies excessive drowsiness or sleepiness, denies suicidal ideation and reports that the current pain medication is helping to control the pain and improve activities of daily living. Patient denies any motor or sensory deficits. Patient denies any fever or night sweats, denies any change in the bowel movements or urination. Physical Examination: -Constitutional: Cooperative. Not in acute distress . -HEENT: Neck is supple. No lymphadenopathy. No thyromegaly. Normal thyroid size. Eyes: No ptosis , no icterus, no photophobia. ENT: No auditory deficits. Normal oropharynx. No Thrush. - Respiratory: Chest clear to auscultations bilaterally. No wheezing. No rhonchi. - Cardiovascular: Regular rate and rhythm. S1 / S2 , no S3 , no S4. - Gastrointestinal: Abdomen soft no tenderness. Bowel sounds positive in all four quadrants. No organomegaly. - Genitourinary: Deferred. - Neurologic: Cranial nerve II to XII intact. No focal neurological deficits. - Psychatric: Alert & oriented x 3. Matching mood & appropriate affect. Judgment and insight intact. - Lymphatic: No Lymphadenopathy. - Musculoskeletal: Cervical spine: Muscle bulk/ tone/ strength in the bilateral upper extremities normal. Vertebral body TTP over C7 Facet loading test cervical area positive. Lumbar spine: Motor bulk/ tone/ strength lower extremities , thigh and legs : 5/5 Deep tendon reflexes : Normal Knee Jerk. Normal Ankle Jerk . Vertebral body tenderness to palpation Lumbar Facet Loading Test positive Straight Leg Raise: positive at 30 degrees right side/ left side Gaenslen's Test positive Sacral spine : Severe tenderness over the Sacroiliac joint: right side / left side Range of motion: Flexion of the lumbar spine <60 degrees Range of motion: Extension of the lumbar spine <20 degrees Gaenslen's Test positive Toñito test: positive right side / left side Assessment and plan: Chronic neck pain secondary to cervical DDD , lumbar spondylosis with facet arthropathy without myelopathy Recommendation of xray of cervical spine M50.30. May need additional testing if indicated. All patient questions answered MAPS reviewed and it was appropriate. I have spent 31 minutes on patient care today. Dr Marmolejo was available by phone for the evaluation of this patient. The time was used to review the medical records including relevant urine studies and Prescription history (MAPs), review of the available imaging, evaluation and examination of the patient, coordination of care with the medical staff and if applicable referring physicians, as well as creation of the medical record PQRS Narrative: Smoking Status Former smoker Hx Alcohol Use (MH) Yes Home Medications: Ambulatory Orders Lansoprazole 30 mg PO BID 09/09/14 Albuterol Sulfate [Proair Hfa] 1 - 2 puff INHALATION Q6HR PRN 09/25/14 Beclomethasone Dipropionate [Qvar 80 mcg/puff] 2 puff INHALATION BID PRN 09/25/14 Hydrocodone/Acetaminophen [[place] 7.5-325] 0.5 - 1 each PO Q4-6H PRN 10/26/14 Atorvastatin [Lipitor] 20 mg PO HS 05/31/21 Citalopram Hydrobromide [Citalopram HBr] 20 mg PO DAILY 05/31/21 methIMAzole [Tapazole] 2.5 mg PO DAILY 05/31/21 Meloxicam 15 mg PO DAILY 10/12/21 Severe Sinus Congestion Relief 2 tab PO TID PRN 12/29/21 Cyclobenzaprine [Flexeril] 5 mg PO TID #28 tablet 01/05/22 Gabapentin 300 mg PO TID #30 cap 01/05/22 HYDROcodone/APAP 10-325MG [[place] 10-325] 1 tab PO Q6HR PRN #32 tab 01/05/22 Sennosides/Docusate Sodium [Senna Plus 8.6-50 mg Tablet] 1 each PO DAILY #20 tab 01/05/22 cefaDROXiL [Duricef] 500 mg PO Q12HR 5 Days #10 cap 01/05/22 Controlled Substance Measures - Controlled Substance Measures Is patient prescribed a controlled substance at discharge?: No
== END ==
LOC: PNWHC3 10:55
PROVIDERS: ATTEND Specialist
DX: M50.323 Other cervical disc degeneration at C6-C7 level (principal); M47.812 Spondylosis without myelopathy or radiculopathy, cervical region; M47.816 Spondylosis without myelopathy or radiculopathy, lumbar region; G89.29 Other chronic pain; F12.90 Cannabis use, unspecified, uncomplicated; Z87.891 Personal history of nicotine dependence; Z88.8 Allergy status to other drugs, medicaments and biological substances
CPT/HCPCS: 99211

== ENCOUNTER → 2023-09-24 | Outpatient (CLI) | payer MEDICARE ==
--- NOTE | 2023-09-25 12:10 | XR ---
EXAMINATION TYPE: XR cervical spine limited DATE OF EXAM: 09/24/2023 6:58 AM CLINICAL INDICATION:Female, 67 years old with history of M50.30 cervicalgia; [facility] COMPARISON: Chest radiograph 11/20/2011 TECHNIQUE: The cervical spine was imaged in frontal, lateral, and odontoid. FINDINGS: Post anterior cervical fusion hardware changes are identified spanning the C3-C7 levels. Prominent an terior osteophytosis is identified the C2-C3 level creating mass effect upon the anterior prevertebra l soft tissues.. The pedicles are intact. Significant height loss of the C4 vertebral bodies apprecia kumar. Visualized upper portions of the thorax are unremarkable. IMPRESSION: 1. No evidence of acute osseous process. 2. Suspected remote compression deformity of the C4 vertebral body. 3. Postsurgical changes from anterior fusion with additional multilevel degenerative changes, most pr onounced at C2-C3.
== END | disposition home or self-care (01) ==
LOC: RADXRMAIN 06:39
PROVIDERS: ATTEND Anesthesiology
DX: M50.30 Other cervical disc degeneration, unspecified cervical region (principal); M47.812 Spondylosis without myelopathy or radiculopathy, cervical region; Z98.1 Arthrodesis status
CPT/HCPCS: 72040

== ENCOUNTER → 2023-10-09 | Outpatient (CLI) | payer MEDICARE ==
--- NOTE | 2023-10-13 10:37 | MR ---
EXAMINATION TYPE: MR cervical spine wo con DATE OF EXAM: 10/09/2023 5:35 PM CLINICAL INDICATION:Female, 67 years old with history of M50.30 OTHER CERVICAL DISC DEGENERATION, UNS P CERV; PHH, Neck pain into left arm/fingers, Headaches COMPARISON: 09/24/2023. TECHNIQUE: Multi planar, multi sequence imaging was performed utilizing: T1-weighted, T2-weighted, an d turbo inversion recovery imaging of the cervical spine. IV Contrast: cc (none if empty) FINDINGS: Alignment: The cervical vertebral bodies have preserved heights. There is straightened postsurgical a lignment Bones: Postsurgical changes from C3 to C7. Multilevel degeneration changes with osteophyte formation from with facet and uncovertebral joint arthropathy. Cord: The spinal cord is unremarkable with regards to their signal intensity and morphology. Discs: Multilevel disc desiccation is present scattered throughout the spine. C2-C3: A disc osteophyte complex is present with mild spinal canal stenosis. No neural foraminal ramona nosis. C3-C4: A disc osteophyte complex is present with mild spinal canal stenosis. Bilateral facet and unc overtebral joint arthropathy are present with moderate bilateral neural foraminal stenosis. C4-C5: No significant disc pathology. The spinal canal is patent. Bilateral facet and uncovertebral joint arthropathy are present with moderate bilateral neural foraminal stenosis. C5-C6: No significant disc pathology. The spinal canal is patent. Bilateral facet and uncovertebral joint arthropathy are present with mild bilateral neural foraminal stenosis. C6-C7: No significant disc pathology. The spinal canal is patent. Bilateral facet and uncovertebral joint arthropathy are present with mild to moderate bilateral neural foraminal stenosis. C7-T1: No significant disc pathology. The spinal canal is patent. Bilateral facet and uncovertebral joint arthropathy are present with moderate to severe bilateral neural foraminal stenosis. Other: None. IMPRESSION: 1. No evidence for disc herniation or significant spinal canal stenosis. 2. Postsurgical changes with neural foraminal stenosis scattered throughout multiple levels including C3-C4 and C4-C5 with moderate bilateral and moderate to severe C7-T1 bilateral.
== END | disposition home or self-care (01) ==
LOC: RADMRIMAIN 16:18
PROVIDERS: ATTEND Specialist
DX: M50.30 Other cervical disc degeneration, unspecified cervical region (principal); M99.71 Connective tissue and disc stenosis of intervertebral foramina of cervical region
CPT/HCPCS: 72141

== ENCOUNTER → 2023-10-23 | Outpatient (CLI) | payer MEDICARE ==
[2023-10-23 14:51] VITALS: BP 155/82; PULSE 72; RESP 15; TEMP 97.6
--- NOTE | 2023-10-23 15:04 | P.PAINPG ---
Objective - Vital Signs Vital signs: Intake & Output 10/22/23 10/23/23 10/23/23 18:59 06:59 18:59 Weight 53.07 kg PQRS Measure Charge Sheet Comment: A 67 yr old female with a history of severe and chronic neck pain x 4 mo secondary to post laminectomy syndrome presents today for evaluation. Pain level is currently at 7 / 10 in intensity, predominantly axial, sore in the L lower aspects of the cervical spine, with occasional radiation of pain to the shoulders, L > R. Pain is provoked by twisting, bending or lifting. Pain is alleviated with PT x 6 wks which ended in Sep 2023, medications, topicals, injections, ice, heat, physical therapy 1 year ago which made the pain worse, laying on her side, repositioning and rest. Cervical disability score of 26. Interventional pain procedures completed include CESIs, LESI L5-S1, BL RFA L3-5 x 2. Patient is currently on [place] 7.5/325mg by Dr Rosen Patient denies any side effects of the medication(s), denies excessive drowsiness or sleepiness, denies suicidal ideation and reports that the current pain medication is helping to control the pain and improve activities of daily living. Patient denies any motor or sensory deficits. Patient denies any fever or night sweats, denies any change in the bowel movements or urination. Physical Examination: -Constitutional: Cooperative. Not in acute distress . -HEENT: Neck is supple. No lymphadenopathy. No thyromegaly. Normal thyroid size. Eyes: No ptosis , no icterus, no photophobia. ENT: No auditory deficits. Normal oropharynx. No Thrush. - Respiratory: Chest clear to auscultations bilaterally. No wheezing. No rhonchi. - Cardiovascular: Regular rate and rhythm. S1 / S2 , no S3 , no S4. - Gastrointestinal: Abdomen soft no tenderness. Bowel sounds positive in all four quadrants. No organomegaly. - Genitourinary: Deferred. - Neurologic: Cranial nerve II to XII intact. No focal neurological deficits. - Psychatric: Alert & oriented x 3. Matching mood & appropriate affect. Judgment and insight intact. - Lymphatic: No Lymphadenopathy. - Musculoskeletal: Cervical spine: Muscle bulk/ tone/ strength in the bilateral upper extremities normal. Vertebral body TTP over C7 Distraction test positive C7-T1 Facet loading test cervical area positive. Lumbar spine: Motor bulk/ tone/ strength lower extremities , thigh and legs : 5/5 Deep tendon reflexes : Normal Knee Jerk. Normal Ankle Jerk . Vertebral body tenderness to palpation Lumbar Facet Loading Test positive Straight Leg Raise: positive at 30 degrees right side/ left side Gaenslen's Test positive Sacral spine : Severe tenderness over the Sacroiliac joint: right side / left side Range of motion: Flexion of the lumbar spine <60 degrees Range of motion: Extension of the lumbar spine <20 degrees Gaenslen's Test positive Toñito test: positive right side / left side Imaging: MRI noncontrast of the cervical spine from 10/13/2023 reviewed Assessment and Plan: Chronic neck pain secondary to C4-C7 post operative changes, post cervical laminectomy syndrome Recommendation of BL TFESI C7-T1 #1. May need a series fo injections for optimal pain relief. Risks, benefits of procedure discussed and pt verbalized understanding. Protocol for discontinuation/ continuation of medications soham procedure discussed. All patient questions answered I have spent 31 minutes on patient care today. Dr Marmolejo was available by phone for the evaluation of this patient. The time was used to review the medical records including relevant urine studies and Prescription history (MAPs), review of the available imaging, evaluation and examination of the patient, coordination of care with the medical staff and if applicable referring physicians, as well as creation of the medical record PQRS Narrative: Smoking Status Former smoker Hx Alcohol Use (MH) Yes Home Medications: Ambulatory Orders Lansoprazole 30 mg PO BID 09/09/14 Albuterol Sulfate [Proair Hfa] 1 - 2 puff INHALATION Q6HR PRN 09/25/14 Beclomethasone Dipropionate [Qvar 80 mcg/puff] 2 puff INHALATION BID PRN 09/25/14 Hydrocodone/Acetaminophen [[place] 7.5-325] 0.5 - 1 each PO Q4-6H PRN 10/26/14 Atorvastatin [Lipitor] 20 mg PO HS 05/31/21 Citalopram Hydrobromide [Citalopram HBr] 20 mg PO DAILY 05/31/21 methIMAzole [Tapazole] 2.5 mg PO DAILY 05/31/21 Meloxicam 15 mg PO DAILY 10/12/21 Severe Sinus Congestion Relief 2 tab PO TID PRN 12/29/21 Cyclobenzaprine [Flexeril] 5 mg PO TID #28 tablet 01/05/22 Gabapentin 300 mg PO TID #30 cap 01/05/22 HYDROcodone/APAP 10-325MG [[place] 10-325] 1 tab PO Q6HR PRN #32 tab 01/05/22 Sennosides/Docusate Sodium [[place]enna Plus 8.6-50 mg Tablet] 1 each PO DAILY #20 tab 01/05/22 cefaDROXiL [Duricef] 500 mg PO Q12HR 5 Days #10 cap 01/05/22 Controlled Substance Measures - Controlled Substance Measures Is patient prescribed a controlled substance at discharge?: No
== END ==
LOC: PNWHC3 10-16 10:41
PROVIDERS: ATTEND Specialist
DX: G89.29 Other chronic pain (principal); M96.1 Postlaminectomy syndrome, not elsewhere classified; Z87.891 Personal history of nicotine dependence; Z98.890 Other specified postprocedural states; Z88.5 Allergy status to narcotic agent
CPT/HCPCS: 99211

== ENCOUNTER 2023-11-05 09:26 | Day surgery (SDC) | payer MEDICARE ==
[2023-11-01 16:24] VITALS: BMI 21.5
[~2023-11-05 09:26] MED LIST changes: -ACETAMINOPHEN TAB 500 MG TAB PO PRN; -GABAPENTIN 300 MG CAP PO PRN; +LACTATED RINGERS 1,000 ML IV SCH; -ONDANSETRON 4 MG/2 ML VIAL IVP PRN; -TRANEXAMIC ACID IN NACL,ISO-OS 1,000 MG in SALINE 1 100ML.BAG IVPB PRN
[2023-11-05 10:05] LABS: Glucose,Whole Blood 117 mg/dL (70-110)
[2023-11-05 10:21] VITALS: TEMP 98.5
[2023-11-05] MEDS ORDERED: DEXAMETHASONE SOD PHOSPHATE 10 MG/ML 1 ML VIAL ONE (10:26)
[2023-11-05] MEDS ORDERED: IOPAMIDOL M200 10 ML VIAL ONE (10:26)
--- NOTE | 2023-11-05 11:07 | FL ---
EXAMINATION TYPE: FL guided pain mgmt statistic Intraoperative/procedural fluoroscopic services were provided. Total fluoroscopy time is 60.6 seconds with a total of 3 submitted images to PACS. Please s ee the operative/procedural note for further details. DAP: [id number] mGym2
[2023-11-05 11:50] VITALS: BP 122/90; PULSE 83; RESP 14
--- NOTE | 2023-11-05 17:31 | P.PCN ---
Date of Procedure: 11/05/23 Procedure(s) Performed: PREOPERATIVE DIAGNOSIS: 1-Cervical radiculopathy .2-cervical degenerative disc disease.3-cervical spondylosis with cervical facet arthropathy. 4-cervical foraminal stenosis. 5-failed back surgery syndrome cervical area POSTOPERATIVE DIAGNOSIS: Same as preoperative diagnoses. PROCEDURE 1. Transforaminal epidural steroid injection under fluoroscopic guidance at bilateral C7-T1 level. (Fluoroscopy images stored on file in the radiology Depa rtment ) ANESTHESIA: Local with 1% lidocaine 4 ml only. EBL: Minimal PROCEDURE INDICATION: The patient with severe neck pain and radiculopathy to the upper extremity , the symptoms unresponsive to conservative treatment. PROCEDURE DESCRIPTION / TECHNIQUE: The patient was seen and identified in the preoperative area. Risks, benefits, complications, and alternatives were discussed with the patient. The patient agreed to proceed with the procedure and signed the consent. IV was started, and vital signs were stable. Patient was taken to the OR and time out was completed. The patient was placed in the lateral position on procedure tale. The cervical area was prepped and draped in the usual sterile fashion. Critical pause was taken. Vital signs were closely monitored during the procedure. . Using oblique fluoroscopy, the right C7-T1 level was identified, in the lateral view , the skin and deeper tissues just below was localized with 1% lidocaine. Subsequently, a 22-gauge 3.5-inch spinal needle was advanced under a tunneled view fluoroscopic guidance just underneath the inferior and posterior border of the foraminal under lateral fluoroscopy, the needle was then advanced to the posterior border of the interforaminal space. After negative aspiration of CSF and blood and with no paresthesias, 1 mL Isovue 200 contrast dye was injected excellent epidurogram , 2 mL of block solution containing 10 mg Dexamethasone and 1 mL of 0.9% normal saline PF was injected. Needle was removed and the same procedure was repeated at the left C7-F2tswre . At the end of the procedure, skin was cleansed, and bandages were applied. COMPLICATIONS:none DISPOSITION / PLANS: The patient was placed in a supine position and transferred to the recovery area in a stable condition for observation. There was no evidence of lower extremity motor or sensory deficit after the procedure. Patient was discharged from the recovery room after meeting discharge criteria. Home discharge instructions were given to the patient by the staff. The patient was reexamined prior to discharge.
== END 2023-11-05 11:24 | disposition home or self-care (01) ==
LOC: ORPAIN 09:26
PROVIDERS: ATTEND Specialist
DX: M50.13 Cervical disc disorder with radiculopathy, cervicothoracic region (principal); M47.23 Other spondylosis with radiculopathy, cervicothoracic region; E78.5 Hyperlipidemia, unspecified; Z95.1 Presence of aortocoronary bypass graft; Z88.5 Allergy status to narcotic agent
CPT/HCPCS: 64479; J1100; Q9966

== ENCOUNTER → 2023-11-21 | Outpatient (CLI) | payer MEDICARE ==
[2023-11-21 14:09] VITALS: BP 130/82; PULSE 87; RESP 15; TEMP 98.5
--- NOTE | 2023-11-21 14:35 | P.PAINPG ---
PQRS Measure Charge Sheet Comment: A 68 yr old female with a history of severe and chronic neck pain x 4 mo secondary to post laminectomy syndrome presents today for evaluation s/p BL TFESI C7-T1 #1. Pt states she experienced 0 % pain relief x 2 wks s/p procedure. Pain level is currently at 9 / 10 in intensity, predominantly axial, sore in the L lower aspects of the cervical spine, with occasional radiation of pain to the shoulders, L > R. Pain is provoked by twisting, bending or lifting. Pain is alleviated with PT x 6 wks which ended in Sep 2023, medications, topicals, injections, ice, heat, physical therapy 1 year ago which made the pain worse, laying on her side, repositioning and rest. Cervical disability score of 26. Interventional pain procedures completed include CESIs, LESI L5-S1, BL RFA L3-5 x2 (Apr 2021), BL RFA C2-C4 (Oct/November 2020), BL TFESI C7-T1 x1 (Oct 2023) Patient is currently on [place] 7.5/325mg by Dr Rosen Patient denies any side effects of the medication(s), denies excessive drowsiness or sleepiness, denies suicidal ideation and reports that the current pain medication is helping to control the pain and improve activities of daily living. Patient denies any motor or sensory deficits. Patient denies any fever or night sweats, denies any change in the bowel movements or urination. Physical Examination: -Constitutional: Cooperative. Not in acute distress . -HEENT: Neck is supple. No lymphadenopathy. No thyromegaly. Normal thyroid size. Eyes: No ptosis , no icterus, no photophobia. ENT: No auditory deficits. Normal oropharynx. No Thrush. - Respiratory: Chest clear to auscultations bilaterally. No wheezing. No rhonchi. - Cardiovascular: Regular rate and rhythm. S1 / S2 , no S3 , no S4. - Gastrointestinal: Abdomen soft no tenderness. Bowel sounds positive in all four quadrants. No organomegaly. - Genitourinary: Deferred. - Neurologic: Cranial nerve II to XII intact. No focal neurological deficits. - Psychatric: Alert & oriented x 3. Matching mood & appropriate affect. Judgment and insight intact. - Lymphatic: No Lymphadenopathy. - Musculoskeletal: Cervical spine: Muscle bulk/ tone/ strength in the bilateral upper extremities normal. Vertebral body TTP over C7 Distraction test positive C7-T1 Facet loading test cervical area positive. Lumbar spine: Motor bulk/ tone/ strength lower extremities , thigh and legs : 5/5 Deep tendon reflexes : Normal Knee Jerk. Normal Ankle Jerk . Vertebral body tenderness to palpation Lumbar Facet Loading Test positive Straight Leg Raise: positive at 30 degrees right side/ left side Gaenslen's Test positive Sacral spine : Severe tenderness over the Sacroiliac joint: right side / left side Range of motion: Flexion of the lumbar spine <60 degrees Range of motion: Extension of the lumbar spine <20 degrees Gaenslen's Test positive Toñito test: positive right side / left side Imaging: MRI noncontrast of the cervical spine from 10/13/2023 reviewed Assessment and Plan: Chronic neck pain secondary to C4-C7 post operative changes, post cervical laminectomy syndrome Recommendation of PT x 6 wks w therapeutic massage M50.30. Will follow up w Dr Cerrato for additional treatment options. All patient questions answered I have spent 31 minutes on patient care today. Dr Marmolejo was available by phone for the evaluation of this patient. The time was used to review the medical records including relevant urine studies and Prescription history (MAPs), review of the available imaging, evaluation and examination of the patient, coordination of care with the medical staff and if applicable referring physicians, as well as creation of the medical record PQRS Narrative: Smoking Status Former smoker Hx Alcohol Use (MH) Yes Home Medications: Ambulatory Orders Lansoprazole 30 mg PO BID 09/09/14 Albuterol Sulfate [Proair Hfa] 1 - 2 puff INHALATION Q6HR PRN 09/25/14 Beclomethasone Dipropionate [Qvar 80 mcg/puff] 2 puff INHALATION BID PRN 09/25/14 Hydrocodone/Acetaminophen [[place] 7.5-325] 0.5 - 1 each PO Q4-6H PRN 10/26/14 Atorvastatin [Lipitor] 20 mg PO HS 05/31/21 Citalopram Hydrobromide [Citalopram HBr] 20 mg PO DAILY 05/31/21 methIMAzole [Tapazole] 2.5 mg PO DAILY 05/31/21 Meloxicam 15 mg PO DAILY PRN 10/12/21 Severe Sinus Congestion Relief 2 tab PO TID PRN 06/24/22 Alendronate Sodium [Fosamax] 70 mg PO WEEKLY 11/01/23 Mirtazapine [Remeron] 15 mg PO HS 11/01/23 Controlled Substance Measures - Controlled Substance Measures Is patient prescribed a controlled substance at discharge?: No
== END | disposition home or self-care (01) ==
LOC: PNWHC3 12:48
PROVIDERS: ATTEND Specialist
DX: M54.12 Radiculopathy, cervical region (principal); M96.1 Postlaminectomy syndrome, not elsewhere classified; F12.90 Cannabis use, unspecified, uncomplicated; F17.200 Nicotine dependence, unspecified, uncomplicated; Z88.1 Allergy status to other antibiotic agents
CPT/HCPCS: 99211

== ENCOUNTER → 2023-12-30 | Outpatient (CLI) | payer MEDICARE ==
--- NOTE | 2023-12-30 11:02 | CT ---
EXAMINATION TYPE: CT cervical spine wo con DATE OF EXAM: 12/30/2023 COMPARISON: 08/07/2017 HISTORY: 68-year-old female M54.2, Cervicalgia, prior sx TECHNIQUE: Contiguous axial scanning of the cervical spine without IV contrast. Coronal and sagittal reconstructions performed. CT DLP: 346 mGycm Automated exposure control for dose reduction was used. FINDINGS: Rightward nasal septal deviation. Asymmetrically larger right lobe of thyroid gland. Dedicated thyroid ultrasound can further evaluate. Moderate emphysematous change in the visualized upper lungs. No craniocervical junction abnormality, predental space widening, or prevertebral soft tissue swellin g. Re-demonstrated prominent degenerative change at the C1 dens articulation. Alignment is maintained. Post surgical change C3-C7 ACDF. Posterior osteophytic ridging at C3-4 with some mild narrowing of th e spinal canal appears slightly increased. Otherwise, the effusion appears uncomplicated with bony bridging present. Partially bridging anterior and plate spondylosis C2-C3. Multilevel moderate facet and uncovertebral joint arthropathy. Alignment is maintained. Moderate to a dvanced degenerative disc disease in the visualized upper thoracic spine has progressed from 2018. * At C3-C4, there is moderate bilateral neuroforaminal stenosis secondary to hypertrophic facet and uncovertebral joint arthropathy. * At C4-C5, there is severe bilateral neuroforaminal stenosis secondary to posterior osteophytic rid ging and severe uncovertebral joint and facet arthropathy. * At C5-C6, moderate to severe left and moderate right neural foraminal stenosis secondary to hypert rophic uncovertebral joint and facet arthropathy. * At C6-C7, moderate to severe left and moderate right neuroforaminal stenosis secondary to hypertro phic facet and uncovertebral joint arthropathy. * At C7-T1, severe bilateral neuroforaminal stenosis, left greater than right from uncovertebral thaddeus nt and facet arthropathy. * At T1-T2, moderate left and mild right neuroforaminal stenosis. * At T2-T3 moderate to severe left and mild right neuroforaminal stenosis. IMPRESSION: 1. REDEMONSTRATED C3-C7 ACDF. SOME POSTERIOR OSTEOPHYTIC RIDGING AT C3-C4 HAS SLIGHTLY INCREASED CONT RIBUTES TO MILD NARROWING OF THE SPINAL CANAL. SIMILAR PARTIALLY BRIDGING ANTERIOR ENDPLATE SPONDYLOS IS C2-C3. 2. HYPERTROPHIC FACET AND UNCOVERTEBRAL JOINT ARTHROPATHY THROUGHOUT. MODERATE TO SEVERE DEGENERATIVE DISC DISEASE PROGRESSED IN THE UPPER THORACIC SPINE COMPARED TO 2018. 3. VARIABLE MODERATE TO SEVERE NEURAL FORAMINAL STENOSES OUTLINED ABOVE.
== END | disposition home or self-care (01) ==
LOC: RADCTMAIN 10:17
PROVIDERS: ATTEND Orthopaedic Surgery
DX: M47.812 Spondylosis without myelopathy or radiculopathy, cervical region (principal); M51.34 Other intervertebral disc degeneration, thoracic region; M99.72 Connective tissue and disc stenosis of intervertebral foramina of thoracic region
CPT/HCPCS: 72125

== ENCOUNTER → 2024-02-03 | Outpatient (CLI) | payer MEDICARE ==
--- NOTE | 2024-02-03 08:34 | US ---
EXAMINATION TYPE: US thyroid st tissue head/neck DATE OF EXAM: 02/03/2024 COMPARISON: 12/30/2023 CLINICAL INDICATION: Female, 68 years old with history of E04.1 THYROID NODULE; abnormal CT GLAND SIZE: Right Lobe: 5.0 x 2.0 x 2.0 cm Overall Parenchyma: homogeneous Left Lobe: 5.5 x 1.8 x 1.7 cm Overall Parenchyma: homogeneous Isthmus Thickness: 0.3 cm NODULES RIGHT: # of nodules measured on right: 0 LEFT: # of nodules measured on left: 0 ISTHMUS: # of nodules measured in the isthmus: 0 Bilateral neck scanned, no evidence of lymphadenopathy. IMPRESSION: No suspicious thyroid nodules.
--- NOTE | 2024-02-03 09:40 | CTL ---
EXAMINATION TYPE: CT Low Dose Lung DATE OF EXAM ORDERED: 02/03/2024 HISTORY: . Low Dose CT Lung Screening CT DLP: 60.[address] CTDI: 1.8 mGy IV CONTRAST USED: None. SCREENING VISIT: Second COMPARISON: 01/31/2023 TECHNIQUE: Low dose computed tomography scan was performed through the chest at 1 millimeter thick se ctions and reconstructed images in the coronal plane at [address] DIAGNOSTIC QUALITY: Satisfactory FINDINGS: LUNG NODULES: Not presentLeft lung: no nodules identified.Right lung: no nodules identified. LUNGS: COPD: Severity: Moderate emphysematous changes. Fibrosis: Severity:None Lymph nodes: None Other findings: Parenchymal scarring left lower lobe. RIGHT PLEURAL SPACE: Effusion: None Calcification: None Thickening: None Pneumothorax: None LEFT PLEURAL SPACE: Effusion: None Calcification: None Thickening: None Pneumothorax: None HEART: Heart Size: Mildly enlarged Coronary calcification: Mild Pericardial effusion: None OTHER FINDINGS: Upper abdomen: No significant abnormality Bony thorax: Degenerative changes Supraclavicular region: No significant abnormalityOther: No significant abnormalityI IMPRESSION: 1.No clinically significant pulmonary nodules. FOLLOW UP CT CHEST RECOMMENDATION: Follow-up screening in one year CT LUNG RAD: LUNG RAD CATEGORY 1 negative
== END | disposition home or self-care (01) ==
LOC: RADCTMAIN 06:42
PROVIDERS: ATTEND Family Medicine
DX: Z12.2 Encounter for screening for malignant neoplasm of respiratory organs (principal); F17.210 Nicotine dependence, cigarettes, uncomplicated; E04.1 Nontoxic single thyroid nodule
CPT/HCPCS: 71271; 76536

== ENCOUNTER → 2024-06-03 | Day surgery (SDC) | payer MEDICARE ==
[2024-05-29 15:14] VITALS: BMI 23.0
[~2024-06-03] MED LIST changes: -LACTATED RINGERS 1,000 ML IV SCH; +LIDOCAINE 1% (10MG/ML) FOR IV START INTRADERMA PRN; +LIDOCAINE 1% INJ 10MG/ML (20 ML MDV) ONE; +PROPOFOL 10 MG/ML 20 ML VIAL IV ONE
[2024-06-03 07:09] VITALS: TEMP 97.8
[2024-06-03] MEDS: IV FLUID CONTINUATION 1,000 ML IV ONE (07:09)
[2024-06-03] MEDS: LACTATED RINGERS 1,000 ML IV SCH (07:09)
[2024-06-03 07:12] LABS: Glucose,Whole Blood 107 mg/dL (70-110)
--- NOTE | 2024-06-03 07:37 | P.GSHP ---
History of Present Illness H&P Date: 06/03/24 CHIEF COMPLAINT: GERD and colon screen HISTORY OF PRESENT ILLNESS: The patient is a 68-year-old female who presents with gastroesophageal reflux disease and need for colon screen. Upper and lower endoscopy were offered for further evaluation and management. PAST MEDICAL HISTORY: Please see list. PAST SURGICAL HISTORY: Please see list. MEDICATIONS: Please see list. ALLERGIES: Please see list. SOCIAL HISTORY: No illicit drug use FAMILY HISTORY: No reports of Crohn disease or ulcerative colitis. REVIEW OF ORGAN SYSTEMS: CONSTITUTIONAL: No reports of fevers or chills. GI: Denies any blood in stools or constipation. PHYSICAL EXAM: VITAL SIGNS: Stable GENERAL: Well-developed pleasant in no acute distress. HEENT: No scleral icterus. Extraocular movements grossly intact. Moist buccal mucosa. NECK: Supple without lymphadenopathy. CHEST: Unlabored respirations. Equal bilateral excursions. CARDIOVASCULAR: Regular rate and rhythm. Distal 2+ pulses. ABDOMEN: Soft, nondistended. MUSCULOSKELETAL: No clubbing, cyanosis, or edema. ASSESSMENT: 1. Gastroesophageal reflux disease 2. Colon screen. PLAN: 1. Recommend proceeding with an upper and lower endoscopy Past Medical History Past Medical History: Asthma, COPD, Diabetes Mellitus, Fibromyalgia, GERD/Reflux, Osteoarthritis (OA), Thyroid Disorder Additional Past Medical History / Comment(s): diet control,chronic back pain History of Any Multi-Drug Resistant Organisms: None Reported Past Surgical History: Back Surgery, Hysterectomy Additional Past Surgical History / Comment(s): Neck Fusion 2006, EGD, Bunionectomy, PAIN CLINIC PROCEDURES,had back surgery-has device in back but does not know what it is called. Past Anesthesia/Blood Transfusion Reactions: No Reported Reaction Smoking Status: Former smoker - Past Family History Mother Family Medical History: Cancer Additional Family Medical History / Comment(s): LUNG CANCER Medications and Allergies Home Medications Medication Instructions Recorded Confirmed Type Lansoprazole 30 mg PO DAILY 09/09/14 06/03/24 History Atorvastatin [Lipitor] 20 mg PO HS 05/31/21 06/03/24 History Citalopram Hydrobromide 20 mg PO DAILY 05/31/21 06/03/24 History [Citalopram HBr] methIMAzole [Tapazole] 2.5 mg PO DAILY 05/31/21 06/03/24 History Severe Sinus Congestion Relief 2 tab PO TID PRN 12/29/21 06/03/24 History Mirtazapine [Remeron] 15 mg PO HS 11/01/23 06/03/24 History HYDROcodone/IBUPROFEN 7.5-200 1 tab PO Q4HR PRN 05/29/24 06/03/24 History [Vicoprofen 7.5-200 mg] methocarbamoL [Robaxin] 500 mg pe PO HS 05/29/24 06/03/24 History Allergies Allergy/AdvReac Type Severity Reaction Status Date / Time meperidine HCl [From Demerol] AdvReac Vomiting Verified 06/03/24 06:55 Surgical - Exam Vital Signs Temp Pulse Resp BP Pulse Ox 97.8 F 90 18 143/81 96 06/03/24 07:07 06/03/24 07:07 06/03/24 07:07 06/03/24 07:07 06/03/24 07:07
--- NOTE | 2024-06-03 07:49 | P.PCN ---
Date of Procedure: 06/03/24 Description of Procedure: PREOPERATIVE DIAGNOSIS: Dysphagia Gastroesophageal reflux disease. POSTOPERATIVE DIAGNOSIS: Presbyesophagus Gastroesophageal reflux disease with erosive esophagitis Acute gastritis of bleeding Acute gastric ulcers with bleeding Chronic gastritis Arteriovenous malformation of duodenum Diaphragmatic hiatal hernia OPERATION: Esophagogastroduodenoscopy with biopsies along esophagus, antrum and duodenum SURGEON: Christine Bejarano MD ANESTHESIA: MAC. INDICATIONS: The patient is a 68-year-old female who presents with dysphagia and reflux disease. Benefits and risks of the procedure were described. Informed consent was obtained. DESCRIPTION: The patient was brought into the endoscopy suite and laid in the left lateral decubitus position. An Olympus gastroscope was passed along the posterior oropharynx down to the distal esophagus where the squamocolumnar junction was encountered at 35 cm from the incisors. The stomach was entered and bile reflux was found. Additional findings are listed below. Biopsies with cold forceps were obtained of the antrum. The first through third portion of the duodenum was examined. Retroflexion of the scope confirmed Hill grade 3 lower esophageal valve. The squamocolumnar junction demonstrated LA grade B erosive esophagitis. The stomach was desufflated. The patient tolerated the procedure well. FINDINGS: Squamocolumnar junction 35 cm from the incisors. Diaphragmatic hiatus at 36 cm. Hiatal hernia, 1 cm, sliding-type Hill grade 4 lower esophageal valve. LA grade B erosive esophagitis. Biopsies obtained Acute gastritis with bleeding, biopsies obtained Acute gastric ulcers 3 mm x 3, proximal angularis incisura, with acute bleeding Biopsies obtained of the duodenum. Arteriovenous malformation 2 mm without bleeding, third portion Chronic gastritis with biopsies obtained. Biopsies obtained of duodenum Moderate tertiary contractions consistent with presbyesophagus RECOMMENDATIONS: Upper endoscopy with dilation after treatment for acute ulcers
--- NOTE | 2024-06-03 08:32 | P.PCN ---
Date of Procedure: 06/03/24 Description of Procedure: PREOPERATIVE DIAGNOSIS: Personal history of colon polyps Colonoscopy screening POSTOPERATIVE DIAGNOSIS: Tubular adenoma hepatic flexure Tubular adenoma transverse colon Tubular adenoma descending colon Scattered diverticulosis Proctitis OPERATION: Colonoscopy to the ileocecal valve and appendiceal orifice, cecum Colonoscopy with hot snare polypectomy SURGEON: Christine Bejarano MD. ANESTHESIA: MAC. INDICATIONS: The patient is an 68-year-old male who presents personal history of colon polyps. Last colonoscopy 5 years. Benefits and risks were described and informed consent was obtained. DESCRIPTION OF PROCEDURE: The patient had undergone Sutab prep. The patient had been brought into the operating room and laid in the left lateral decubitus position. After adequate intravenous sedation, the rectum was examined with 2% lidocaine jelly. No external hemorrhoids were encountered. The rectal tone was within normal limits. No lesions were palpated in the rectal vault. An Olympus colonoscope was advanced until the cecum, ileocecal valve and appendiceal orifice were clearly viewed. The prep was good. Scattered diverticulosis was encountered. Colonic polyps were found and removed. No evidence of focal colitis was found. Retroflexion of the scope demonstrated grade 1 internal hemorrhoids without active bleeding or inflammation. The colon was desufflated. The patient had tolerated the procedure well. Withdrawal time was over 6 minutes. FINDINGS: Aronchick preparation quality scale 2 (1-5) Internal hemorrhoids, grade 1 No external hemorrhoids No arteriovenous malformations. Scattered diverticulosis Removal of 4 polyps: - Snare polypectomy descending colon, 10 mm tubulovillous adenoma. - Snare polypectomy transverse colon x 2, 5 tp 6 mm flat villous adenoma - Snare polypectomy hepatic flexure, 8 mm flat villous adenoma No focal colitis. RECOMMENDATIONS: Given severity of tubular adenomas, recommend repeat colonoscopy 3 years, 2026 Plan - Discharge Summary Discharge Rx Participant: No New Discharge Prescriptions: Continue Lansoprazole 30 mg PO DAILY methIMAzole [Tapazole] 2.5 mg PO DAILY Citalopram Hydrobromide [Citalopram HBr] 20 mg PO DAILY Mirtazapine [Remeron] 15 mg PO HS HYDROcodone/IBUPROFEN 7.5-200 [Vicoprofen 7.5-200 mg] 1 tab PO Q4HR PRN PRN Reason: Pain methocarbamoL [Robaxin] 500 mg pe PO HS Atorvastatin [Lipitor] 20 mg PO HS Severe Sinus Congestion Relief 2 tab PO TID PRN PRN Reason: SINUS CONGESTION Discharge Medication List Lansoprazole 30 mg PO DAILY 09/09/14 [History] Atorvastatin [Lipitor] 20 mg PO HS 05/31/21 [History] Citalopram Hydrobromide [Citalopram HBr] 20 mg PO DAILY 05/31/21 [History] methIMAzole [Tapazole] 2.5 mg PO DAILY 05/31/21 [History] Severe Sinus Congestion Relief 2 tab PO TID PRN 12/29/21 [History] Mirtazapine [Remeron] 15 mg PO HS 11/01/23 [History] HYDROcodone/IBUPROFEN 7.5-200 [Vicoprofen 7.5-200 mg] 1 tab PO Q4HR PRN 05/29/24 [History] methocarbamoL [Robaxin] 500 mg pe PO HS 05/29/24 [History] Follow up Appointment(s)/Referral(s): Christine Bejarano MD [STAFF PHYSICIAN] - 06/16/24 1:45 pm Patient Instructions/Handouts: Hiatal Hernia (DC), Diet for Stomach Ulcers and Gastritis (GEN), Colorectal Polyps (GEN), Diverticulosis Diet (GEN) Activity/Diet/Wound Care/Special Instructions: Repeat colonoscopy 3 years, 2026 Discharge Disposition: HOME SELF-CARE
[2024-06-03 08:50] VITALS: BP 129/83; PULSE 68; RESP 16
== END | disposition home or self-care (01) ==
LOC: ORWHC2ENDO 06:38
PROVIDERS: ATTEND Surgery Plastic and Reconstructive Surgery
DX: Z12.11 Encounter for screening for malignant neoplasm of colon (principal); D12.3 Benign neoplasm of transverse colon; D12.4 Benign neoplasm of descending colon; K62.89 Other specified diseases of anus and rectum; K57.30 Diverticulosis of large intestine without perforation or abscess without bleeding; K64.0 First degree hemorrhoids; K25.0 Acute gastric ulcer with hemorrhage; K29.51 Unspecified chronic gastritis with bleeding; K31.819 Angiodysplasia of stomach and duodenum without bleeding; K21.00 Gastro-esophageal reflux disease with esophagitis, without bleeding; K44.9 Diaphragmatic hernia without obstruction or gangrene; J44.89 Other specified chronic obstructive pulmonary disease; E11.9 Type 2 diabetes mellitus without complications; E07.9 Disorder of thyroid, unspecified; M79.7 Fibromyalgia; M19.90 Unspecified osteoarthritis, unspecified site; F32.A Depression, unspecified; Z79.890 Hormone replacement therapy; Z79.899 Other long term (current) drug therapy; Z87.891 Personal history of nicotine dependence; Z86.0100 Personal history of colon polyps, unspecified; Z98.1 Arthrodesis status; Z88.5 Allergy status to narcotic agent
CPT/HCPCS: 88305; 45385; 43239; J2003; J2704

== ENCOUNTER 2024-10-15 06:31 | Day surgery (SDC) | payer MEDICARE ==
[2024-10-13 09:40] VITALS: BMI 23.2
[2024-10-15 06:51] VITALS: RESP 16; TEMP 97.8
[2024-10-15 06:56] LABS: Glucose,Whole Blood 117 mg/dL (70-110)
[2024-10-15] MEDS: LACTATED RINGERS 1,000 ML IV SCH (06:58)
[2024-10-15] MEDS ORDERED: LIDOCAINE 1% INJ 10MG/ML (20 ML MDV) ONE (07:31)
[2024-10-15] MEDS ORDERED: PROPOFOL 10 MG/ML 20 ML VIAL IV ONE (07:31)
--- NOTE | 2024-10-15 07:51 | P.GSHP ---
History of Present Illness H&P Date: 10/15/24 CHIEF COMPLAINT: Esophageal stricture HISTORY OF PRESENT ILLNESS: The patient is a 68-year-old female who presents reports dysphagia. Upper endoscopy was offered for further evaluation and management. PAST MEDICAL HISTORY: Please see list. PAST SURGICAL HISTORY: Please see list. MEDICATIONS: Please see list. ALLERGIES: Please see list. SOCIAL HISTORY: No illicit drug use FAMILY HISTORY: No reports of Crohn disease or ulcerative colitis. REVIEW OF ORGAN SYSTEMS: CONSTITUTIONAL: No reports of fevers or chills. GI: Denies any blood in stools or constipation. PHYSICAL EXAM: VITAL SIGNS: Stable GENERAL: Well-developed and pleasant in no acute distress. HEENT: No scleral icterus. Extraocular movements grossly intact. Moist buccal mucosa. NECK: Supple without lymphadenopathy. CHEST: Unlabored respirations. Equal bilateral excursions. CARDIOVASCULAR: Regular rate and rhythm. Distal 2+ pulses. ABDOMEN: Soft, nondistended. MUSCULOSKELETAL: No clubbing, cyanosis, or edema. ASSESSMENT: 1. Esophageal stricture PLAN: 1. Recommend proceeding with an upper endoscopy with rigid dilators. Past Medical History Past Medical History: Asthma, COPD, Diabetes Mellitus, Fibromyalgia, GERD/Reflux, GI Bleed, Hyperlipidemia, Osteoarthritis (OA), Thyroid Disorder Additional Past Medical History / Comment(s): "Borderline diabetic." "It does go low sometimes and I have passed out from it a few times."diet control,chronic back pain. Ulcer-5-6 years ago. History of Any Multi-Drug Resistant Organisms: None Reported Past Surgical History: Back Surgery, Hysterectomy Additional Past Surgical History / Comment(s): Neck Fusion 2007, EGD, Bunionectomy bi lat, PAIN CLINIC PROCEDURES,had back surgery-has device in back but does not know what it is called. "I have a cage around C2-C7. Colonoscopy Past Anesthesia/Blood Transfusion Reactions: No Reported Reaction, Motion Sickness Smoking Status: Former smoker - Past Family History Mother Family Medical History: Cancer Additional Family Medical History / Comment(s): LUNG CANCER Medications and Allergies Home Medications Medication Instructions Recorded Confirmed Type Lansoprazole 30 mg PO QAM 09/09/14 10/15/24 History Atorvastatin [Lipitor] 20 mg PO HS 05/31/21 10/15/24 History methIMAzole [Tapazole] 2.5 mg PO QAM 05/31/21 10/15/24 History Severe Sinus Congestion Relief 2 tab PO TID 12/29/21 10/15/24 History Mirtazapine [Remeron] 15 mg PO HS 11/01/23 10/15/24 History methocarbamoL [Robaxin] 500 mg pe PO HS 05/29/24 10/15/24 History Citalopram Hydrobromide 20 mg PO QAM 10/13/24 10/15/24 History [Citalopram HBr] Allergies Allergy/AdvReac Type Severity Reaction Status Date / Time meperidine HCl [From Demerol] AdvReac Vomiting Verified 10/15/24 06:43 Surgical - Exam Vital Signs Temp Pulse Resp BP Pulse Ox 97.8 F 83 16 121/78 98 10/15/24 06:49 10/15/24 06:49 10/15/24 06:49 10/15/24 06:49 10/15/24 06:49 Results - Labs Abnormal Lab Results - Last 24 Hours (Table) 10/15/24 Range/Units 06:54 POC Glucose (mg/dL) 117 H (70-110) mg/dL
--- NOTE | 2024-10-15 07:57 | P.PCN ---
Date of Procedure: 10/15/24 Description of Procedure: PREOPERATIVE DIAGNOSIS: Dysphagia. POSTOPERATIVE DIAGNOSIS: Dysphagia. Upper esophageal stenosis Gastroparesis OPERATION: Esophagogastroduodenoscopy rigid Welsh dilator 54 Fr, upper esophageal sphincter. SURGEON: Christine Bejarano MD ANESTHESIA: MAC. INDICATIONS: The patient is a 68-year-old female who presents with dysphagia. She reports troubles with swallowing pills along her upper throat. Upper endoscopy was offered for further diagnostic evaluation and treatment. DESCRIPTION: The patient was brought into the endoscopy suite and laid in the left lateral decubitus position. An Olympus gastroscope was carefully passed along the posterior oropharynx. Upon entry into the proximal esophagus, a mild stricture was identified consistent with hypertensive upper esophageal sphincter. No erosion were found along the distal esophagus or ulcerations. The stomach was entered. The scope was passed to the second portion and third portion of the duodenum was unremarkable. Retroflexion of the scope confirmed Hill grade 2 lower esophageal valve. Retained food was found in the stomach consistent with gastroparesis. A guidewire was placed through the scope into the stomach. The scope was removed. A 54-[place] rigid dilator was placed to 45 cm from the incisors. The dilator was left in place between 2-3 minutes. The dilator and guidewire were removed. The scope was reentered along the proximal esophagus whereby the stricture had resolved of the upper esophagus. No full-thickness injury was found along the mucosa. The stomach was desufflated. The patient tolerated the procedure well. FINDINGS: Squamocolumnar junction 38 cm from the incisors. Diaphragmatic hiatus at 38 cm. Resolved gastric ulcers Hill grade 2 lower esophageal valve. LA grade B erosive esophagitis. Retained food consistent with gastroparesis Hypertensive upper esophageal sphincter dilated to 54 [place] RECOMMENDATIONS: Start Reglan 10 mg 3 times daily for 10 days Warm salt water gargle twice daily for 2 days Upper endoscopy with dilation as needed Plan - Discharge Summary Discharge Rx Participant: No New Discharge Prescriptions: New Metoclopramide [Reglan] 10 mg PO ACHS #30 tab Continue Lansoprazole 30 mg PO QAM methIMAzole [Tapazole] 2.5 mg PO QAM Mirtazapine [Remeron] 15 mg PO HS methocarbamoL [Robaxin] 500 mg pe PO HS Citalopram Hydrobromide [Citalopram HBr] 20 mg PO QAM Atorvastatin [Lipitor] 20 mg PO HS Severe Sinus Congestion Relief 2 tab PO TID Discharge Medication List Lansoprazole 30 mg PO QAM 09/09/14 [History] Atorvastatin [Lipitor] 20 mg PO HS 05/31/21 [History] methIMAzole [Tapazole] 2.5 mg PO QAM 05/31/21 [History] Severe Sinus Congestion Relief 2 tab PO TID 12/29/21 [History] Mirtazapine [Remeron] 15 mg PO HS 11/01/23 [History] methocarbamoL [Robaxin] 500 mg pe PO HS 05/29/24 [History] Citalopram Hydrobromide [Citalopram HBr] 20 mg PO QAM 10/13/24 [History] Metoclopramide [Reglan] 10 mg PO ACHS #30 tab 10/15/24 [Rx] Follow up Appointment(s)/Referral(s): Christine Bejarano MD [STAFF PHYSICIAN] - 11/03/24 1:15 pm Patient Instructions/Handouts: Esophageal Dilation (GEN) Activity/Diet/Wound Care/Special Instructions: Salt water gargle twice daily for 2 days. Avoid sharp foods for 2 days. Soft diet for 2 days Discharge Disposition: HOME SELF-CARE
[2024-10-15 08:21] VITALS: BP 131/84; PULSE 91
== END 2024-10-15 08:59 | disposition home or self-care (01) ==
LOC: ORWHC2ENDO 06:31
PROVIDERS: ATTEND Surgery Plastic and Reconstructive Surgery
DX: K22.2 Esophageal obstruction (principal); K21.9 Gastro-esophageal reflux disease without esophagitis; K31.84 Gastroparesis; E78.5 Hyperlipidemia, unspecified; E07.9 Disorder of thyroid, unspecified; E11.43 Type 2 diabetes mellitus with diabetic autonomic (poly)neuropathy; F10.90 Alcohol use, unspecified, uncomplicated; G35 Multiple sclerosis; J44.89 Other specified chronic obstructive pulmonary disease; R09.81 Nasal congestion; M79.7 Fibromyalgia; M19.90 Unspecified osteoarthritis, unspecified site; Z90.710 Acquired absence of both cervix and uterus; Z87.891 Personal history of nicotine dependence; Z80.1 Family history of malignant neoplasm of trachea, bronchus and lung; Z88.6 Allergy status to analgesic agent; Z88.5 Allergy status to narcotic agent; Z79.02 Long term (current) use of antithrombotics/antiplatelets; Z79.899 Other long term (current) drug therapy
CPT/HCPCS: 43249; J2003; J2704

== ENCOUNTER → 2024-12-31 | Outpatient (CLI) | payer MEDICARE ==
--- NOTE | 2024-12-31 09:21 | MM ---
Reason for Exam: Screening (asymptomatic). Last mammogram was performed 1 year(s) and 5 month(s) ago. Patient History: Menarche at age 16. Patient has no children. Hysterectomy at age 48. Postmenopausal. 2002, Benign Excisional Biopsy on the left side. Risk Values: Anita 5 year model risk: 1.3%. NCI Lifetime model risk: 4.3%. Prior Study Comparison: 12/27/2020 Bilateral Screening Mammogram, [facility]. 03/05/2022 Bilateral MG 3D screening mammo w/cad, [facility]. 07/31/2023 Bilateral MG 3D screening mammo w/cad, [facility]. Tissue Density: There are scattered areas of fibroglandular density. Findings: Analyzed By CAD. Right breast: There is no suspicious group of microcalcifications or new suspicious mass. Left breast: There is no suspicious group of microcalcifications or new suspicious mass. Overall Assessment: Negative, BI-RAD 1 Management: Screening Mammogram of both breasts in [address] [facility] will attempt to contact patient to return for supplemental views and ultrasound if indicated. Patient should continue monthly self-breast exams. A clinical breast exam by your physician is recommended on an annual basis. This exam should not preclude additional follow-up of suspicious palpable abnormalities. Note on Anita scores and lifetime risk: 1. A Anita score greater than 3% is considered moderate risk. If this is the case, consider specialist referral to assess eligibility for a risk reducing agent. 2. If overall lifetime risk for the development of breast cancer is 20% or higher, the patient may qualify for future screening with alternating mammogram and breast MRI. [facility], , 12/31/2024 9:18 AM. Electronically signed and approved by: Mario Marks DO
--- NOTE | 2024-12-31 15:26 | BD ---
EXAMINATION TYPE: Axial Bone Density DATE OF EXAM: 12/31/2024 CLINICAL HISTORY: 69 years old Female. ICD-10 CODE: Z780 POST TIERNEY WITHOUT HRT , Additional History: Height: Weight: FRAX RISK QUESTIONS: hx of grandmother breaking her hips, maternal. History of Fracture in Adulthood: yes 3. Menopause before 45: no, at 48 Current Tobacco Use: yes RISK FACTORS HISTORY OF: Surgery to Spine, yes, 2021 MEDICATIONS: Thyroid Medications: synthroid, for about 10 yrs, vicodin, flexeril, depression meds, EXAM MEASUREMENTS: Bone mineral densitometry was performed using the [employer] System. not scanned, spine surg....2021 Bone mineral density about the R hip (g/cm2): 0.766 Bone mineral density about the L hip (g/cm2): 0.895 T Score values are as follows: -----R Neck: -2.1 -----L Neck: -1.3 -----R Total: -1.9 -----L Total: -0.9 Z Score values are as follows: -----R Neck: -1.3 -----L Neck: -0.5 -----R Total: -1.4 -----L Total: -0.4 Bone mineral density has: Decreased 5.1% since study of: 06.06.2021 FRAX%s: The graph provided illustrates a 9.1% chance for a major osteoporotic fx and a 2.5% chance fo r the hips probability for fx in 10 years time. IMPRESSION: Osteopenia (T Score between -2.5 and -1). There is slightly increased risk of fracture and the patient may be considered for treatment. Re-Screen 2-5 years. NOTE: T-SCORE=SD OF THE YOUNG ADULT MEAN. [facility], , 12/31/2024 3:24 PM
== END | disposition home or self-care (01) ==
LOC: RADMAMWWP 08:46
PROVIDERS: ATTEND Family Medicine
DX: Z12.31 Encounter for screening mammogram for malignant neoplasm of breast (principal); R92.323 Mammographic fibroglandular density, bilateral breasts; M85.89 Other specified disorders of bone density and structure, multiple sites; Z78.0 Asymptomatic menopausal state
CPT/HCPCS: 77063; 77067; 77080